=== PATIENT | female | born 1955 | race Caucasian/White ===

== ENCOUNTER 2016-07-14 14:18 | Emergency (ER) | payer OTHER ==
[~2016-07-14] VITALS: Ht 162.5 cm; Wt 68.0 kg
[~2016-07-14 14:18] MED LIST: 'KLONOPIN0.5 MG PO; ADVAIR DISKUS 51 DSK INH; AMOXIL500 MG PO; ASPIRIN CHILDRE80 MG PO; ASPIRIN CHILDRE81 MG PO; ATARAX,VISTARIL50 MG PO; ATIVAN0.5 MG PO; ATIVAN1 MG PO; AUGMENTIN 875 M1 TAB PO; BRIN10TA PO; BRIN20TA PO; BUPROPION75 MG PO; CARDIZEM CD240 MG PO; CEFUROXIME AXE250 MG PO; CELEXA20 MG PO; CELEXA40 MG PO; CIPRO500 MG PO; CLONAZEPAM0.5 MG PO; CLONIDINE HCL0.1 MG PO; CLONIDINE0.1 MG PO; CORDROL20 MG PO; CYMBALTA30 MG PO; CYMBALTA60 MG PO; Catapres-Tts 10.1 MG PO; DAYPRO600 M1 PO; DELTASONE20 M1 PO; DICYCLOMINE10 MG PO; DIFLUCAN150 MG PO; DILTIAZEM CD120 MG PO; DULE1ARO1 INH; FLEXERIL5 MG PO; GABAPENTIN300 MG PO; HYDROCODONE BIT1 T11 PO; INDOCIN25 MG PO; LEVOFLOXACIN500 MG PO; LIPITOR10 MG PO; LISINOPRIL40 MG PO; MEDROL DOSEPAK4 MG PO; METFORMIN500 MG PO; MIRTAZAPINE15 M2 PO; PALMITATE-A5000 IU PO; PHENERGAN W/ DE30 ML PO; PREDNICOT10 MG PO; PREDNICOT20 MG PO; PREDNISONE10 MG PO; PREDNISONE5 MG PO; PRILOSEC20 MG PO; PROAIR HFA0.09 MG/AC INH; PROAIR HFA8.5 GM INH; PROTONIX40 MG PO; REGLAN5 MG PO; SPIRIVA18 MCG INH; SYMBICORT1 AER INH; SYNTHROID,LEVO50 MCG PO; TESSALON PERLE100 M1 PO; VICODIN 5/500 505 MG PO; VICODIN 500 MG-1 TAB PO; VICODIN1 TAB PO; Vicodin 5/500 505 MG PO; ZOFRAN ODT4 MG SL; ZOFRAN8 MG PO
[2016-07-14 14:21] VITALS: BP 132/88
== END 2016-07-14 15:29 | disposition home or self-care (01) ==
LOC: ED 14:18
DX: S69.92XA Unspecified injury of left wrist, hand and finger(s), initial encounter (principal); F17.200 Nicotine dependence, unspecified, uncomplicated; Z91.041 Radiographic dye allergy status; Z88.6 Allergy status to analgesic agent; Z88.1 Allergy status to other antibiotic agents; Z79.82 Long term (current) use of aspirin; Z79.899 Other long term (current) drug therapy; W18.39XA Other fall on same level, initial encounter; Y93.89 Activity, other specified; Y92.9 Unspecified place or not applicable; Y99.9 Unspecified external cause status

== ENCOUNTER → 2016-09-29 | Outpatient (CLI) | payer OTHER ==
[2016-09-29 11:24] LABS: EST GLOM FILT AFRICAN AMERICAN > 60 ml/min
== END | disposition home or self-care (01) ==
LOC: MRI 10:35
PROVIDERS: Radiology Diagnostic Radiology
DX: M47.896 Other spondylosis, lumbar region (principal); M54.5 Low back pain; I10 Essential (primary) hypertension; E11.9 Type 2 diabetes mellitus without complications

== ENCOUNTER 2017-06-11 20:24 | Inpatient (IN) | payer OTHER ==
[~2017-06-11] VITALS: Ht 162.5 cm; Wt 83.1 kg
--- NOTE | ~2017-06-11 | PR ---
[place], [place] PROGRESS NOTE NAME: GLORIA CHIN [facility] #: [id number] UNIT #: [id number] ROOM: 425 DOCTOR: HARISH LIGHT MD BIRTHDATE: [birth year] DOS: 06/16/2017 SUBJECTIVE: The patient is doing fine without any complaints this morning. She is much better after the bronchoscopy was performed. OBJECTIVE: VITAL SIGNS: Blood pressure is 142/82, pulse of 60, respirations 20, temperature 98.2. LUNGS: Clear. HEART: Regular. ABDOMEN: Obese, soft, nontender. EXTREMITIES: Without any edema. ASSESSMENT AND PLAN: 1. Acute exacerbation of chronic obstructive pulmonary disease, stable and improved. Bronchospasm no longer noted. 2. Acute tracheobronchitis with bronchoscopy done because of significant mucous plugging. Bronch cultures could not complete it yet, but preliminary Gram stain shows few gram-positive cocci. Since the patient is clinically better, the plan is to discharge her to home and await the sputum culture results. HARISH LIGHT MD CM:PNTRANS [id number] HARISH LIGHT MD 06/16/17 1148 interface
--- NOTE | ~2017-06-11 | WRIGHTHP ---
[place], [place] PATIENT HISTORY AND PHYSICAL EXAM [facility] [id number] UNIT #: [id number] ROOM: 425 DOCTOR: HARISH LIGHT MD BIRTHDATE: [birth year] DOS: 06/11/2017 HISTORY OF PRESENT ILLNESS: The patient is 62 years old, known to us, comes in with cough and shortness of breath of 3-4 days duration. Cough is productive of scant amounts of green sputum. She denies having any chest pains or palpitations, does not have any fever or chills. PAST MEDICAL HISTORY: Significant for: 1. Last hospitalization with major depression and suicidal tendencies in May 2016. 2. History of chronic obstructive pulmonary disease with exacerbation. 3. Benign hypertension. 4. Major depression. 5. Gastroesophageal reflux disease. 6. Continued nicotine abuse. 7. Moderate major depression. 8. Generalized anxiety disorder. MEDICATIONS: She is on are BuSpar 15 t.i.d., citalopram 40 daily, clonidine 0.2 at bedtime, hydroxyzine 50 q.8h., levothyroxine 50 mcg daily, lisinopril 40 daily, metformin 500 daily, Protonix 40 daily, trazodone 200 at bedtime. SOCIAL HISTORY: Smoker of about 1 pack of cigarettes a day. Denies using any alcohol. PHYSICAL EXAMINATION: GENERAL: She is awake and alert and oriented, very harsh incessant cough. VITAL SIGNS: Blood pressure is 114/66, pulse of 78, respirations 20, temperature 98.2. LUNGS: Diminished breath sounds, scattered wheezes and rhonchi. HEART: Regular. ABDOMEN: Obese, soft, nontender. EXTREMITIES: Without any edema. ASSESSMENT AND PLAN: 1. Chronic obstructive pulmonary disease with acute exacerbation. The patient is placed on IV steroids, breathing treatments. 2. Possibility of pneumonia with bibasilar atelectasis. CT of the chest will be ordered. White cell count elevated at 13.5. The patient meets early sepsis criteria. 3. Benign hypertension, controlled. 4. Hypokalemia. Supplementation given. [place], [place] PATIENT HISTORY AND PHYSICAL EXAM NAME: GLORIA CHIN UNIT #: [id number] ROOM: 425 DOCTOR: HARISH LIGHT MD BIRTHDATE: [birth year] HARISH LIGHT MD CM:JUDAH:PATIENT HISTORY AND PHYSICAL EXAMINATION 0759 HARISH LIGHT MD 06/12/17 0948 interface
--- NOTE | ~2017-06-11 | CON ---
[place], [place] REPORT OF CONSULTATION NAME: GLORIA CHIN [facility] #: [id number] UNIT #: [id number] ROOM: 425 DOCTOR: TOM VEGA MD,RENETTA BIRTHDATE: [birth year] DOS: 06/14/2017 PULMONARY CONSULTATION EVALUATION AND MANAGEMENT CONSULTATION ORDERED BY: Dr. Nicol Titus REASON FOR CONSULTATION: For assessment of possible therapeutic bronchoscopy. HISTORY OF PRESENT ILLNESS: This is a 62-year-old white female who has been admitted to the hospital on 06/11/2017 The patient developed acute respiratory symptoms about 2-1/2 weeks prior to the hospitalization. She started having symptoms of progressive coughing associated with wheezing and shortness of breath. The symptoms have worsened, not responding to the outpatient treatment, requiring hospitalization. She has been treated in the hospital, receiving the corticosteroids, bronchodilator, antibiotic, and failed to show improvement in the respiratory symptoms. Coughing is still quite severe for the patient and not responding to the current treatment. The patient denies any symptoms of chest pain or hemoptysis. The wheezing of this patient remains persistent as well. REVIEW OF SYSTEMS: CONSTITUTIONAL SYMPTOMS: Fatigue and tiredness reported without any symptoms of fever or chills. EYES: Denies any burning, redness, or tenderness. NECK, EAR, NOSE, THROAT SYMPTOMS: Denies sore throat, hoarseness, otalgia, postnasal drainage, or epistaxis. CARDIOVASCULAR: Denies angina pain, edema, or pain of the lower extremities. GASTROINTESTINAL: No dysphagia, nausea, vomiting, diarrhea, abdominal pain, hematemesis, melena, or hematochezia. SKIN: Denies lesions or rashes. CENTRAL NERVOUS SYSTEM: No dizziness, headache, diplopia, or syncopal episodes. Remaining systems were reviewed, they were noted all negative. PAST MEDICAL HISTORY: The patient was known with history of: 1. Chronic obstructive pulmonary disease. 2. History of pulmonary nodule in the past in this patient with thoracotomy with right lower lobectomy. 3. Peptic ulcer disease. 4. Obesity. 5. Type 2 diabetes mellitus. 6. Hypothyroidism. PAST SURGICAL HISTORY: 1. D and C. 2. Polypectomy. 3. T and A. 4. Right knee arthroscopy twice. 5. Complete hysterectomy. 6. Right lower lobectomy. [place], [place] REPORT OF CONSULTATION [facility] [id number] UNIT #: [id number] ROOM: 425 DOCTOR: TOM VEGA MD,[facility] BIRTHDATE: [birth year] 7. Lumbar laminectomy. 8. Appendectomy. 9. Cholecystectomy. FAMILY HISTORY: The patient stated her dad is living, 86 years old, with history of COPD. Mother is 82 years old with history of COPD, diabetes, and certain other illnesses. ALLERGIES: THE DRUG ALLERGY HISTORY WAS RECORDED. 1. IVP DYE. 2. CIPROFLOXACIN. 3. MEPERIDINE. PHYSICAL EXAMINATION: GENERAL: This is a 62-year-old female who has been currently lying on the bed without any acute distress. Height of 5 feet 4 inches, weight of 193 pounds, BMI 31. VITAL SIGNS: Normal temperature to 99.4 degrees Fahrenheit in the past 24 hours, respiratory rate 18-20, heart rate of 102-85, blood pressure is 131/76-128/72. Pulse oxygen saturation with the patient on 2 liters nasal cannula 98% saturation. Admission oxygen saturation on room air was 92% saturation. HEENT: Moderate obesity. Head was atraumatic. NECK: Supple. CARDIOVASCULAR SYSTEM: S1, S2 audible. LUNGS: Noted diffuse expiratory wheezing in the lungs bilaterally. ABDOMEN: Soft, nontender. Bowel sounds present. EXTREMITIES: The patient was noted with chronic obesity without any edema, clubbing or cyanosis. CENTRAL NERVOUS SYSTEM: Noted without any gross focal neurologic deficit. Cranial nerves 2-12 intact. MUSCULOSKELETAL: No deformities. SKIN: No lesions or rashes. LABORATORY DATA: CBC on 06/11/2017, WBC count 13.5. Remaining CBC was normal. Lactic acid 1.3 on 06/11/2017. On 06/11/2017, influenza A and B nasal washing antigens were negative. CMP of the patient on 06/11/2017, normal BUN and creatinine, potassium 3.4. Blood culture for the patient on 06/11/2017 was noted with no bacterial growth. The culture of the sputum, normal dirk, which was obtained on spontaneous sputum culture on 06/12/2017. Chest x-ray, 1 view, that was done for this patient was noted with a small pleural thickening in the right lung. CT scan of the chest that was done for this patient on this admission without contrast on 06/12/2017, was personally reviewed from the images. The lung parenchymal window for shows previous volume loss on the right side with the previous surgical intervention and lobectomy. Infiltration was noted with ground glass opacities in the lungs with reticulonodular infiltration and some changes of centrilobular pulmonary nodules. The finding was noted much more pronounced in the left than the right lung. Centrilobular emphysema changes were noted in the upper lungs bilaterally. There was no pleural effusion noted at the present time. [place], [place] REPORT OF CONSULTATION NAME: GLORIA CHIN UNIT #: [id number] ROOM: 425 DOCTOR: TOM VEGA MD,[facility] BIRTHDATE: [birth year] IMPRESSION: 1. The patient will be currently admitted to the hospital. The patient noted with progressive respiratory symptom with associated acute exacerbation of chronic obstructive pulmonary disease and, acute tracheobronchitis. 2. Current nonspecific acute interstitial pneumonitis related to infection. Other etiologies to be considered including chronic infection such as Mycobacterium avium-intracellulare infection. 3. History of chronic past nicotine use was also noted as 1 pack of cigarettes per day, used to smoke 2 packs of cigarettes per day. 4. History of benign nodule with surgical resection of the right lower lobe a few years ago as well. 5. History of hypothyroidism and type 2 diabetes mellitus. 6. Moderate obesity was also noted. PLAN OF MANAGEMENT: The bronchoscopy assessment will be done for the patient tomorrow morning with obtaining BAL specimen of the left lower lobe, the area of most interest. At this time, the patient will be continued on current dose of corticosteroids, bronchodilators, and antibiotics. No change in treatment need to be done except addition of the doxycycline for atypical coverage of the gram-positive organisms. The risks and benefits of procedure have been discussed with the patient. The procedure was scheduled to be done in the morning. Additional treatment changes need to be made for the patient based on progression of the illness. Abstinence from tobacco use. The patient was encouraged to use the nicotine replacement patch to overcome any nicotine withdrawal. The patient will be ordered new labs since the labs have not been done at admission of 06/11/2017 to assess her BUN and creatinine, other electrolytes and the WBC count. DVT prophylaxis will be added to treatment with the use of the Lovenox. Monitor management of hyperglycemia because of the current use of corticosteroids with history of diabetes mellitus as well. Thanks for allowing me to participate in the care of this patient. RENETTA SANTOS MD CM:CONSTR:REPORT OF CONSULTATION 1314 06/15/17 0151 interface
--- NOTE | ~2017-06-11 | EKG ---
[place], [place] ELECTROCARDIOGRAM REPORT NAME: GLORIA CHIN UNIT #: [id number] ROOM: 425 DOCTOR: TOM VEGA MD,RENETTA BIRTHDATE: [birth year] DOS: 06/14/2017 TIME: 10:42 a.m. Normal sinus rhythm noted. Heart rate 72 beats per minute. No other acute abnormalities were noted. RENETTA SANTOS MD CM:EKGRPT:ELECTROCARDIOGRAM REPORT 1418 [id number] RENETTA VEGA MD
--- NOTE | ~2017-06-11 | PR ---
[place], [place] PROGRESS NOTE NAME: GLORIA CHIN UNIT #: [id number] ROOM: 425 DOCTOR: RENETTA RAO MD BIRTHDATE: [birth year] DOS: 06/15/2017 SUBJECTIVE: She has been noted same as previously with the cough. Denies symptoms of a chest pain. Denies symptoms of nausea or vomiting. OBJECTIVE: VITAL SIGNS: For the patient, which has been recorded. The patient shows a normal temperature, respiratory rate 19, heart rate 86, blood pressure 110/84. Pulse oxygen saturation on room air was 95% saturation. HEENT: Examination shows no acute change. NECK: Supple. CARDIOVASCULAR: S1, S2 is audible. LUNGS: Without any wheezing or crackles at this time. ABDOMEN: Soft, nontender. Bowel sounds present. LABORATORY DATA: CMP, they were no labs done this morning. CBC yesterday was noted, WBC count 14.9 with 88% segmented neutrophils, normal platelet count. Hemoglobin and hematocrit was noted as normal. CMP that was done yesterday, glucose 140. Normal BUN and creatinine. Albumin 2.9. The culture of the spontaneous sputum culture noted normal dirk. IMPRESSION: 1. The patient with interstitial infiltration of the left lower lobe for this patient noted with ongoing acute cough and other symptom related to mucus impaction major airways. 2. Past history of surgery. Resection of the nodule of the right lower lobe. 3. Rule out mycobacterium avium intracellulare infection or other etiology with further assessment. PLAN OF TREATMENT: Continue with the current plan of management at this time without any changes. Proceed with bronchoscopy as planned for all the cultures including for the acid fast bacillus as well. Additional treatment changes will be done based on progression of the illness. Other supportive plan of management and care. [place], [place] PROGRESS NOTE NAME: GLORIA HCIN UNIT #: [id number] ROOM: 425 DOCTOR: RENETTA RAO MD BIRTHDATE: [birth year] RENETTA SANTOS MD CM:PNTRANS [id number] RENETTA VEGA MD 06/15/17 1820 interface
--- NOTE | ~2017-06-11 | PR ---
[place], [place] PROGRESS NOTE [id number] UNIT #: [id number] ROOM: 425 DOCTOR: TOM VEGA MD,RENETTA BIRTHDATE: [birth year] DOS: 06/16/2017 SUBJECTIVE: She has been noted with marked improvement and resolution of the acute respiratory symptoms after bronchoscopy. Coughing, wheezing, shortness of breath has improved significantly. OBJECTIVE: VITAL SIGNS: For the patient this morning, normal temperature, respiratory rate 20, heart rate 82, blood pressure 121/76. The pulse ox and saturation on room air 95% saturation. HEENT: No acute change. NECK: Supple. CARDIOVASCULAR: S1, S2 audible. LUNGS: The patient was noted with minimal wheezing. The air entry was noted in the lungs bilaterally. ABDOMEN: Soft, nontender. LABORATORY DATA: Gram stain bronchial washing, many white blood cells, moderate epithelial cells, gram-positive cocci in pairs. Preliminary normal dirk, final culture results are pending. IMPRESSION: The patient with significant improvement occurred in acute exacerbation of chronic obstructive pulmonary disease with acute bronchitis has a bronchoscopy. PLAN OF TREATMENT: The patient could be considered from discharge today for further followup as an outpatient. Tapering dose of prednisone. Antibiotic has been ordered by Dr. Nicol Titus. RENETTA SANTOS MD CM:PNTRANS [phone] RENETTA VEGA MD 06/16/17 1839 interface
--- NOTE | ~2017-06-11 | PR ---
[place], [place] PROGRESS NOTE NAME: GLORIA CHIN [facility] #: [id number] UNIT #: [id number] ROOM: 425 DOCTOR: HARISH LIGHT MD BIRTHDATE: [birth year] DOS: SUBJECTIVE: The patient is doing fine without any complaints, except for continued cough. OBJECTIVE: VITAL SIGNS: Graphic trend shows blood pressure 121/62, pulse of 78, respirations 20, temperature 98.6. LUNGS: Diminished breath sounds, scattered wheezes and rhonchi. HEART: Regular. ABDOMEN: Obese, soft, nontender. EXTREMITIES: Without any edema. ASSESSMENT AND PLAN: 1. Acute exacerbation of chronic obstructive pulmonary disease, on IV steroids. Add Pulmicort and chest PT. If she continues to have bronchospasm, the plan possibly will be to do a bronchoscopy. 2. Acute tracheobronchitis. A CT of the chest did show focal consolidation in the left lower lobe. She most likely has underlying pneumonia. Sputum culture is pending. 3. Benign hypertension, controlled. 4. Moderate cigarette smoker. Advised to quit smoking. HARISH LIGHT MD CM:PNTRANS [phone] HARISH LIGHT MD 06/13/17 1117 interface
--- NOTE | ~2017-06-11 | DS ---
[place], [place] DISCHARGE SUMMARY NAME: GLORIA CHIN UNIT #: [id number] ROOM: 425 DOCTOR: HARISH LIGHT MD BIRTHDATE: [birth year] DOS: 06/16/2017 DIAGNOSES: 1. Acute exacerbation of chronic obstructive pulmonary disease. 2. Acute tracheobronchitis. 3. Bronchoscopy with negative cultures, complete cultures are not available yet. 4. Benign hypertension. 5. Major depression, moderate, recurrent. 6. Moderate nicotine abuse. 7. Generalized anxiety disorder. 8. Atelectasis with possible left lower lobe pneumonia. MEDICATIONS: Same as in admission, the only new prescription given was tapering dose of prednisone, doxycycline 100 mg twice a day for 7 days. Home meds are BuSpar 15 t.i.d., citalopram 40 daily, clonidine 0.2 at bedtime, hydroxyzine 50 q. 8, levothyroxine 50 mcg daily, lisinopril 40 daily, metformin 500 daily, Protonix 40 daily, trazodone 200 at bedtime. HOSPITAL COURSE: This patient is very well known to us. The patient is 62 years old, comes in with complaints of difficulty breathing, cough, sputum production. The patient was seen in the Emergency Room, was admitted with exacerbation of COPD. CT of the chest was done, which showed a possibility of bibasilar atelectasis and a possibility of left lower lobe consolidation. The patient was placed on appropriate antibiotics, breathing treatments and IV steroids. Her progress was extremely poor and slow. At that time, Dr. Layne was consulted for a bronchoscopy. The sputum cultures were negative. White cell count was elevated, possibly from steroid effect. Lactic acid was normal. After the bronchoscopy was performed, the patient's bronchospasm and cough has completely resolved and the patient is feeling much better. So, the plan is to discharge her to home today to be followed up as an outpatient. We do not have the complete culture results yet, but we should wait that as an outpatient. [place], [place] DISCHARGE SUMMARY NAME: GLORIA CHIN UNIT #: [id number] ROOM: 425 DOCTOR: HARISH LIGHT MD BIRTHDATE: [birth year] HARISH LIGHT MD CM:WESLY 6 HARISH LIGHT MD 06/16/17936 interface
--- NOTE | ~2017-06-11 | PR ---
[place], [place] PROGRESS NOTE NAME: GLORIA CHIN [facility] #: [id number] UNIT #: [id number] ROOM: 425 DOCTOR: HARISH LIGHT MD BIRTHDATE: [birth year] DOS: SUBJECTIVE: The patient continues to complain of cough and shortness of breath without much improvement in the last 24 hours. OBJECTIVE: VITAL SIGNS: Blood pressure is 131/76, pulse of 80, respirations 18, temperature 99.4. LUNGS: Diminished breath sounds, scattered wheezes and rhonchi heard. HEART: Regular. ABDOMEN: Obese, soft, nontender. EXTREMITIES: Without any edema. ASSESSMENT AND PLAN: 1. Acute exacerbation of chronic obstructive pulmonary disease, on IV steroids. 2. Pneumonia, left lower lobe with some diffuse alveolar disease, on IV antibiotics with negative blood cultures, negative sputum cultures. Since the patient continues to have significant bronchospasm, the steroid dosage will be increased. We will ask Dr. [place]ne for a consultation for possible bronchoscopy. HARISH LIGHT MD CM:PNTRANS 0837 [id number] HARISH LIGHT MD 06/14/17 1049 interface
--- NOTE | ~2017-06-11 | PROC NOTE ---
[place], [place] PROCEDURE NOTE NAME: GLORIA CHIN [facility] #: [id number] UNIT #: [id number] ROOM: 425 DOCTOR: TOM VEGA MD,RENETTA BIRTHDATE: [birth year] DOS: 06/15/2017 PROCEDURE: Bronchoscopy. PREOPERATIVE DIAGNOSES: The patient got abnormal CT scan of the chest with cough and other finding. POSTOPERATIVE DIAGNOSES: Removal of multiple large plugs and mucus from the endobronchial tree bilaterally. PROCEDURE DESCRIPTION: Informed consent obtained for the patient. The patient brought to the OR and placed in supine position, consultation administered by the Anesthesia Department. After achieving proper sedation, airway introduced into the mouth. Bronchoscope advanced to the airway into laryngeal area. Epiglottis and vocal cords were seen. Vocal cords moving symmetrically with movements. Bronchoscope entered vocal cord. Tracheal lumen showed moderate amount of thick mucus secretion suctioned out at the nicolasa level. Nicolasa noted sharp. Right total lobectomy findings were noted. Right middle, right upper lobe, left lingula, lower lobe and left upper lobe bronchial opening were noted. Impaction of the thick plugs of the mucus patient. All the secretions suctioned out with the help of normal saline wash, sent for culture. Procedure was tolerated by the patient. The postoperative finding will discuss once the patient recovers with the effects of acute sedation. No major change in the treatment will be necessary. RENETTA SANTOS MD CM:PROCNOTE:PROCEDURE NOTE [id number] RENETTA VEGA MD
[2017-06-11 20:30] VITALS: BP 138/96
[2017-06-11] MEDS ORDERED: Zestril,Prinivi40 MG PO (20:50)
[2017-06-11] MEDS ORDERED: BUSPAR15 MG PO (20:51)
[2017-06-11] MEDS ORDERED: TRAZADONE HYDR100 MG PO (20:51)
[2017-06-11] MEDS ORDERED: LEVOTHYROXINE50 MCG PO (20:51)
[2017-06-11] MEDS ORDERED: METFORMIN HCL500 MG PO (20:51)
[2017-06-11] MEDS ORDERED: PANTOPRAZOLE SO40 MG PO (20:52)
[2017-06-11] MEDS ORDERED: CITALOPRAM HYDR40 MG PO (20:52)
[2017-06-11 20:55] VITALS: BP 125/80
[2017-06-11 20:56] LABS: BASO % 0.3 % (0.0-1.0); EOS # 0.3 10*3/uL (0.0-0.4); HEMATOCRIT 36.2 % (37.0-47.0); HEMOGLOBIN 12.3 g/dl (12.0-16.0); LYMPH # 2.2 10*3/uL (1.3-4.4); LYMPH % 16.3 % (27.0-41.0); MEAN CORPUSCULAR HGB 30.6 pg (27.0-31.0); MEAN PLATELET VOLUME 9.1 fl (9.6-12.3); MONO # 1.1 10*3/uL (0.1-1.0); MONO % 8.3 % (3.0-9.0); NEUT # 9.8 10*3/uL (2.3-7.9); NEUT % 72.7 % (47.0-73.0); PLATELET COUNT AUTOMATED 342 10*3/uL (130-400); RED BLOOD COUNT 4.02 10*6/uL (4.10-5.10); RED CELL DISTRI WIDTH 13.2 % (0-14.5); WHITE BLOOD COUNT 13.5 10*3/uL (4.8-10.8)
[2017-06-11 21:12] LABS: ALBUMIN 3.1 gm/dl (3.1-4.5); ALKALINE PHOSPHATASE 121 U/L (45-117); BUN 15 mg/dl (7-24); CHLORIDE 106 mmol/L (98-107); CREATININE 0.62 mg/dL (0.55-1.02); LIPASE 90 U/L (73-393); POTASSIUM 3.4 mmol/L (3.5-5.1); SGOT/AST 8 IU/L (3-35); SGPT/ALT 12 U/L (12-78); SODIUM 141 mmol/L (136-145); TOTAL PROTEIN 6.5 gm/dL (6.4-8.2)
[2017-06-11 21:13] LABS: TROPONIN I < 0.015 ng/ml (<0.045)
[2017-06-11 21:16] VITALS: BP 124/76
[2017-06-11 21:46] VITALS: BP 122/92
[2017-06-11 23:40] VITALS: BP 114/66
[2017-06-12] VITALS: BP 114/66
[2017-06-12] MEDS ORDERED: VISTARIL50 MG PO (00:38)
[2017-06-12] MEDS ORDERED: CLONIDINE0.2 MG PO (00:39)
[2017-06-12 08:00] VITALS: BP 112/95
[2017-06-12 12:00] VITALS: BP 109/83
[2017-06-12 16:00] VITALS: BP 128/69
[2017-06-12 20:00] VITALS: BP 111/59
[2017-06-13] VITALS: BP 121/62
[2017-06-13 08:00] VITALS: BP 116/66
[2017-06-13 12:00] VITALS: BP 132/80
[2017-06-13 16:00] VITALS: BP 134/70
[2017-06-13 20:00] VITALS: BP 139/72
[2017-06-14] VITALS: BP 131/76
[2017-06-14 08:00] VITALS: BP 128/72
[2017-06-14 12:00] VITALS: BP 136/66
[2017-06-14 13:36] LABS: BASO % 0.1 % (0.0-1.0); HEMATOCRIT 37.2 % (37.0-47.0); HEMOGLOBIN 12.2 g/dl (12.0-16.0); LYMPH # 1.2 10*3/uL (1.3-4.4); LYMPH % 7.8 % (27.0-41.0); MEAN CELL VOLUME 89.9 fl (81.0-99.0); MEAN CORPUSCULAR HGB 29.5 pg (27.0-31.0); MEAN CORPUSCULAR HGB CONC 32.8 g/dl (33.0-37.0); MEAN PLATELET VOLUME 8.7 fl (9.6-12.3); MONO # 0.7 10*3/uL (0.1-1.0); MONO % 4.4 % (3.0-9.0); NEUT # 12.6 10*3/uL (2.3-7.9); NEUT % 84.5 % (47.0-73.0); PLATELET COUNT AUTOMATED 401 10*3/uL (130-400); RED BLOOD COUNT 4.14 10*6/uL (4.10-5.10); RED CELL DISTRI WIDTH 13.3 % (0-14.5); WHITE BLOOD COUNT 14.9 10*3/uL (4.8-10.8)
[2017-06-14 14:02] LABS: TOTAL CELLS COUNTED 100 #CELLS
[2017-06-14 14:03] LABS: PLATELET SUFFICIENCY NORMAL (NORMAL)
[2017-06-14 14:08] LABS: ALBUMIN 2.9 gm/dl (3.1-4.5); ALKALINE PHOSPHATASE 119 U/L (45-117); BUN 23 mg/dl (7-24); CHLORIDE 105 mmol/L (98-107); CREATININE 0.88 mg/dL (0.55-1.02); POTASSIUM 3.7 mmol/L (3.5-5.1); SGOT/AST 9 IU/L (3-35); SGPT/ALT 13 U/L (12-78); SODIUM 141 mmol/L (136-145); TOTAL PROTEIN 6.4 gm/dL (6.4-8.2)
[2017-06-14 16:00] VITALS: BP 123/68
[2017-06-14 20:00] VITALS: BP 143/87
[2017-06-15] VITALS (10 sets, daily range): BP systolic 110–178; BP diastolic 61–110
[2017-06-16] VITALS: BP 142/82; BP 148/88
[2017-06-16 08:00] VITALS: BP 125/76
[2017-06-16] MEDS ORDERED: DOXYCYCLINE MO100 M1 PO (08:32)
[2017-06-16] MEDS ORDERED: PREDNISONE5 MG PO (08:32)
[2017-06-16 14:11] LABS: ACID FAST SMEAR Negative (.); ACID FAST SPEC PROCESSING Concentration (.)
== END 2017-06-16 10:10 | disposition home or self-care (01) | DRG 871 ==
LOC: ED 20:24 → EDHOLD 22:09 → 4E 22:09
PROVIDERS: Emergency Medicine Emergency Medical Services; Internal Medicine Critical Care Medicine
PROC: 0BC28ZZ Extirpation of Matter from Carina, Via Natural or Artificial Opening Endoscopic (ICD-10-PCS; principal; 2017-06-15)
PROC: 0BC48ZZ Extirpation of Matter from Right Upper Lobe Bronchus, Via Natural or Artificial Opening Endoscopic (ICD-10-PCS; 2017-06-15)
PROC: 0BC88ZZ Extirpation of Matter from Left Upper Lobe Bronchus, Via Natural or Artificial Opening Endoscopic (ICD-10-PCS; 2017-06-15)
PROC: 0BC18ZZ Extirpation of Matter from Trachea, Via Natural or Artificial Opening Endoscopic (ICD-10-PCS; 2017-06-15)
PROC: 0BC58ZZ Extirpation of Matter from Right Middle Lobe Bronchus, Via Natural or Artificial Opening Endoscopic (ICD-10-PCS; 2017-06-15)
PROC: 0BC38ZZ Extirpation of Matter from Right Main Bronchus, Via Natural or Artificial Opening Endoscopic (ICD-10-PCS; 2017-06-15)
PROC: 0BC78ZZ Extirpation of Matter from Left Main Bronchus, Via Natural or Artificial Opening Endoscopic (ICD-10-PCS; 2017-06-15)
PROC: 0BC68ZZ Extirpation of Matter from Right Lower Lobe Bronchus, Via Natural or Artificial Opening Endoscopic (ICD-10-PCS; 2017-06-15)
PROC: 0BCB8ZZ Extirpation of Matter from Left Lower Lobe Bronchus, Via Natural or Artificial Opening Endoscopic (ICD-10-PCS; 2017-06-15)
PROC: 0BC98ZZ Extirpation of Matter from Lingula Bronchus, Via Natural or Artificial Opening Endoscopic (ICD-10-PCS; 2017-06-15)
DX: A41.9 Sepsis, unspecified organism (principal); J18.1 Lobar pneumonia, unspecified organism; T17.890A Other foreign object in other parts of respiratory tract causing asphyxiation, initial encounter; F33.1 Major depressive disorder, recurrent, moderate; J44.0 Chronic obstructive pulmonary disease with (acute) lower respiratory infection; J98.11 Atelectasis; J44.1 Chronic obstructive pulmonary disease with (acute) exacerbation; J84.89 Other specified interstitial pulmonary diseases; J20.9 Acute bronchitis, unspecified; Z80.9 Family history of malignant neoplasm, unspecified; E66.9 Obesity, unspecified; E11.9 Type 2 diabetes mellitus without complications; X58.XXXA Exposure to other specified factors, initial encounter; E03.9 Hypothyroidism, unspecified; I10 Essential (primary) hypertension; F17.210 Nicotine dependence, cigarettes, uncomplicated; E87.6 Hypokalemia; K21.9 Gastro-esophageal reflux disease without esophagitis; F41.1 Generalized anxiety disorder; Z79.899 Other long term (current) drug therapy; Z88.8 Allergy status to other drugs, medicaments and biological substances; Z88.1 Allergy status to other antibiotic agents; Z91.041 Radiographic dye allergy status; Z83.3 Family history of diabetes mellitus; Z82.49 Family history of ischemic heart disease and other diseases of the circulatory system; Z87.11 Personal history of peptic ulcer disease; Z90.710 Acquired absence of both cervix and uterus; Z90.89 Acquired absence of other organs; Z90.49 Acquired absence of other specified parts of digestive tract; Z83.6 Family history of other diseases of the respiratory system; Y93.89 Activity, other specified; Y92.89 Other specified places as the place of occurrence of the external cause; Y99.8 Other external cause status; Z68.31 Body mass index [BMI] 31.0-31.9, adult

== ENCOUNTER → 2017-09-01 | Outpatient (CLI) | payer OTHER ==
[~2017-09-01] MED LIST changes: +BUSPAR15 MG PO; +CITALOPRAM HYDR40 MG PO; +CLONIDINE0.2 MG PO; +DOXYCYCLINE MO100 M1 PO; +LEVOTHYROXINE50 MCG PO; +METFORMIN HCL500 MG PO; +PANTOPRAZOLE SO40 MG PO; +TRAZADONE HYDR100 MG PO; +VISTARIL50 MG PO; +Zestril,Prinivi40 MG PO
== END | disposition home or self-care (01) ==
LOC: MAMMO 09:58
DX: Z12.31 Encounter for screening mammogram for malignant neoplasm of breast (principal); Z13.820 Encounter for screening for osteoporosis; N95.9 Unspecified menopausal and perimenopausal disorder; Z90.710 Acquired absence of both cervix and uterus

== ENCOUNTER → 2017-11-25 | Outpatient (CLI) | payer OTHER ==
[2017-11-25 14:47] LABS: CREATININE 0.76 mg/dL (0.55-1.02)
== END | disposition home or self-care (01) ==
LOC: LAB 13:57
PROVIDERS: Internal Medicine
DX: R51 Headache (principal)

== ENCOUNTER → 2017-11-26 | Outpatient (CLI) | payer OTHER | END | disposition home or self-care (01) | LOC: CT 01:11 | DX: R51 Headache (principal) ==

== ENCOUNTER → 2018-05-25 | Outpatient (CLI) | payer OTHER ==
[~2018-05-25] MED LIST changes: +AUGMENTIN 875-875 MG PO; +METOPROLOL TART50 M1 PO; +SYMB160 INH
[2018-05-25 15:50] LABS: BASO # 0.1 10*3/uL (0.0-0.1); BASO % 0.8 % (0.0-1.0); EOS # 0.2 10*3/uL (0.0-0.4); HEMATOCRIT 41.6 % (37.0-47.0); HEMOGLOBIN 13.5 g/dl (12.0-16.0); LYMPH # 2.6 10*3/uL (1.3-4.4); LYMPH % 35.1 % (27.0-41.0); MEAN CELL VOLUME 92.4 fl (81.0-99.0); MEAN CORPUSCULAR HGB CONC 32.5 g/dl (33.0-37.0); MEAN PLATELET VOLUME 9.2 fl (9.6-12.3); MONO # 0.6 10*3/uL (0.1-1.0); MONO % 7.6 % (3.0-9.0); NEUT # 3.9 10*3/uL (2.3-7.9); NEUT % 53.4 % (47.0-73.0); PLATELET COUNT AUTOMATED 331 10*3/uL (130-400); WHITE BLOOD COUNT 7.4 10*3/uL (4.8-10.8)
[2018-05-25 16:17] LABS: VITAMIN D, 25-HYDROXY 26.7 ng/mL (30-100)
[2018-05-25 16:20] LABS: ALBUMIN 3.8 gm/dl (3.1-4.5); ALKALINE PHOSPHATASE 111 U/L (45-117); BUN 16 mg/dl (7-24); CHLORIDE 105 mmol/L (98-107); CHOLESTEROL 214 mg/dL (<200); CREATININE 0.73 mg/dL (0.55-1.02); HDL CHOLESTEROL 51 mg/dl (40-60); LDL CHOLESTEROL 125 mg/dL (9-159); POTASSIUM 3.7 mmol/L (3.5-5.1); SGOT/AST 10 IU/L (3-35); SGPT/ALT 14 U/L (12-78); SODIUM 141 mmol/L (136-145); TRIGLYCERIDES 189 mg/dl (<150); VLDL CHOLESTEROL 38 mg/dL (6-40)
[2018-05-26 08:09] LABS: RHEUMATOID ARTHRITIS FACTOR <10.0 IU/mL (0.0-13.9)
[2018-05-26 22:04] LABS: CCP ANTIBODIES IGG/IGA 5 units (0-19)
[2018-05-27 14:07] LABS: SINGLE STRANDED DNA 161422 26 EU (0-19)
== END | disposition home or self-care (01) ==
LOC: LAB 15:18
PROVIDERS: Internal Medicine
DX: Z13.21 Encounter for screening for nutritional disorder (principal); Z13.1 Encounter for screening for diabetes mellitus; Z13.220 Encounter for screening for lipoid disorders; Z79.899 Other long term (current) drug therapy

== ENCOUNTER 2018-06-24 18:44 | Emergency (ER) | payer OTHER ==
[~2018-06-24] VITALS: Ht 162.5 cm; Wt 77.1 kg
[2018-06-24 18:46] VITALS: BP 155/96
[2018-06-24 19:03] LABS: BILIRUBIN NEGATIVE (NEGATIVE); BLOOD 2+ (NEGATIVE); CLARITY CLOUDY (CLEAR); COLOR YELLOW (YELLOW); GLUCOSE NEGATIVE (NEGATIVE); KETONE NEGATIVE (NEGATIVE); LEUKO ESTERASE 2+ (NEGATIVE); NITRITE POSITIVE (NEGATIVE); SPECIFIC GRAVITY 1.025 (1.005-1.030)
[2018-06-24 19:11] LABS: BACTERIA 2+; WBC TNTC wbc/hpf (0-5)
[2018-06-24] MEDS ORDERED: PYRIDIUM200 M1 PO (19:15)
[2018-06-24] MEDS ORDERED: ZOFRAN4 MG PO (19:15)
[2018-06-24] MEDS ORDERED: SEPTDS PO (19:15)
== END 2018-06-24 19:30 | disposition home or self-care (01) ==
LOC: ED 18:44
PROVIDERS: Nurse Practitioner Family
DX: N39.0 Urinary tract infection, site not specified (principal); R03.0 Elevated blood-pressure reading, without diagnosis of hypertension; J44.9 Chronic obstructive pulmonary disease, unspecified; Z91.041 Radiographic dye allergy status; Z88.6 Allergy status to analgesic agent; Z88.1 Allergy status to other antibiotic agents; Z79.899 Other long term (current) drug therapy

== ENCOUNTER 2018-07-08 15:09 | Inpatient (IN) | payer OTHER ==
[~2018-07-08] VITALS: Ht 162.5 cm; Wt 87.7 kg
--- NOTE | ~2018-07-08 | DS ---
[place], [place] DISCHARGE SUMMARY NAME: GLORIA CHIN UNIT #: [id number] ROOM: 405 DOCTOR: CAT PHILLIPS MD BIRTHDATE: [birth year] DOS: 07/11/2018 DISCHARGE DIAGNOSES: 1. Acute exacerbation of severe underlying chronic obstructive pulmonary disease with acute over chronic respiratory failure. 2. Nicotine smoke dependence. 3. Type 2 diabetes mellitus. 4. Benign essential hypertension. 5. Generalized anxiety disorder. 6. Hypothyroidism. 7. Gastroesophageal reflux disease and esophagitis. 8. Chronic primary insomnia. 9. Major depression, recurrent, mild. HOSPITAL COURSE: The patient presented to the Emergency Department at [facility] with difficulty breathing and she had significant amount of wheezing, shortness of breath and she was diagnosed as having acute exacerbation of severe underlying COPD and acute over chronic respiratory failure. The patient admitted and closely monitored in the [facility]. The patient was treated with corticosteroids, oxygen, nebulizer treatments and her breathing has significantly improved. The patient states she is 90% better and will be discharged to home on oral corticosteroids, breathing treatments and antibiotic and follow up with her PCP, Dr. Titus within a week of discharge. Hypothyroidism, being replaced with levothyroxine. Chronic primary insomnia, treated and controlled with trazodone. Benign essential hypertension, treated and controlled. Generalized anxiety disorder, treated with hydroxyzine as needed. DISCHARGE MANAGEMENT: Metformin 500 mg daily, Protonix 40 mg daily, levothyroxine 50 mcg daily, trazodone 200 mg at bedtime, metoprolol 50 mg b.i.d., clonidine 0.1 mg b.i.d., DuoNeb q.i.d., Pulmicort 0.5 mg b.i.d., hydroxyzine 15 mg t.i.d. p.r.n. for anxiety. Follow up at the office with Dr. Titus in less than a week. [place], [place] DISCHARGE SUMMARY NAME: GLORIA CHIN UNIT #: [id number] ROOM: 405 DOCTOR: CAT PHILLIPS MD BIRTHDATE: [birth year] CAT PHILLIPS MD CM:WESLY 1727 0022 CAT PHILLIPS MD 07/12/18 0023 interface
--- NOTE | ~2018-07-08 | WRIGHTHP ---
[place], [place] PATIENT HISTORY AND PHYSICAL EXAM NAME: GLORIA CHIN [facility] #: [id number] UNIT #: [id number] ROOM: 405 DOCTOR: CAT PHILLIPS MD BIRTHDATE: [birth year] DOS: 07/08/2018 HISTORY OF PRESENT ILLNESS: The patient is a 63-year-old female with a past medical history of: 1. Nicotine smoke dependence. 2. COPD. 3. Type 2 diabetes mellitus. 4. Benign essential hypertension. 5. Generalized anxiety disorder. 6. Hypothyroidism. 7. GERD and esophagitis. 8. Chronic primary insomnia. 9. Hypothyroidism. 10. Major depression, recurrent, moderate. The patient presented to the Emergency Department at [facility] with increasing shortness of breath for several days. No chest pain. No dizziness or fainting episodes. The patient was diagnosed as having acute exacerbation of COPD with acute over chronic respiratory failure. The patient was very short of breath, wheezing and had chest congestion. The patient was admitted and started on treatment with DuoNeb and inhaled corticosteroids, antibiotics, oxygen and Dr. Layne was consulted. REVIEW OF SYSTEMS: RESPIRATORY: Increasing shortness of breath and wheezing. GASTROINTESTINAL: No nausea, vomiting, diarrhea, constipation. CARDIOVASCULAR: No chest pain or palpitations. FAMILY HISTORY: Noncontributory. HOME MEDICATIONS: Metformin, Protonix, levothyroxine, trazodone, metoprolol, clonidine, buspirone, hydroxyzine. PHYSICAL EXAMINATION: GENERAL: Alert, oriented x 3, somewhat short of breath, but in no distress. VITAL SIGNS: Blood pressure 139/89, heart rate 79 beats per minute, breathing 20 times per minute, temperature 98 degrees Fahrenheit. HEENT AND NECK: Extraocular movements are intact. Sclerae are anicteric. Oral mucosa is moist and clean. No obvious facial weakness. Neck is supple without any lymphadenopathy. No thyromegaly. No JVD. No carotid arterial bruits. LUNGS: Decreased breath sounds and expiratory wheezing on lung auscultation. CARDIOVASCULAR SYSTEM: Heart rate is regular in rate and rhythm. S1 and S2 normally audible. No significant murmur or any other abnormal cardiac sounds. ABDOMEN: Soft, nontender. No obvious organomegaly. Bowel sounds are present. No obvious herniation. EXTREMITIES: Without significant cyanosis or edema. Warm to touch. CENTRAL NERVOUS SYSTEM: Alert and oriented x 3. Cranial nerves II-XII are intact. Speech is normal. The patient is able to move all extremities. Normal muscle strength. Deep tendon reflexes are equal on both sides. Plantars were downgoing. [place], [place] PATIENT HISTORY AND PHYSICAL EXAM NAME: GLORIA CHIN UNIT #: [id number] ROOM: 405 DOCTOR: CAT PHILLIPS MD BIRTHDATE: [birth year] IMPRESSION AND PLAN: 1. The patient with acute exacerbation of chronic obstructive pulmonary disease, which is significant underlying emphysema with continued nicotine smoke dependence. The patient with acute over chronic respiratory failure, to be treated with inhaled corticosteroids, bronchodilator, oxygen, antibiotic and nebulizer treatments. The patient's breathing is slightly improved with treatment. 2. Hypothyroidism, to be treated with levothyroxine. 3. Chronic primary insomnia, treated with trazodone as needed. 4. Benign essential hypertension. The patient remains on clonidine and blood pressures have been monitored and treated. 5. Generalized anxiety disorder, treated with hydroxyzine. CAT PHILLIPS MD CM:HISPHYS:PATIENT HISTORY AND PHYSICAL EXAMINATION 07 34 CAT PHILLIPS MD 07/09/181935 interface
--- NOTE | ~2018-07-08 | EKG ---
[place], [place] ELECTROCARDIOGRAM REPORT NAME: GLORIA CHIN UNIT #: [id number] ROOM: 405 DOCTOR: IVAN DRAFT REPORT BIRTHDATE: [birth year] [facility] Test Date: 2018-07-08 Test Time: 15:37:10 Pat Name: GLORIA CHIN Department: Room: 405 Gender: F Customer Service Leader: : 1955 Requested By: ANGELIC ADLER Order Number: [id number] Reading MD: Domingo Maldonado MD Measurements Intervals [place] Rate: 95 P: 41 MN: 162 QRS: 24 QRSD: 82 T: 26 QT: 377 QTc: 474 Interpretive Statements Sinus rhythm Abnormal R-wave progression, early transition Compared to ECG 02/16/2018 15:20:10 T-wave abnormality no longer present Electronically Signed On 07-08-2018 16:35:08 PST by Domingo Maldonado MD CM:EKGRPT:ELECTROCARDIOGRAM REPORT [id number] ANGELIC HARRY DRAFT REPORT ANGELIC ADLER DO
--- NOTE | ~2018-07-08 | PR ---
[place], [place] PROGRESS NOTE [id number] #: [id number] ROOM: 405 DOCTOR: CAT PHILLIPS MD BIRTHDATE: [birth year] DOS: 07/10/2018 SUBJECTIVE: The patient's breathing continues to improve. OBJECTIVE: VITAL SIGNS: Blood pressure 152/92, heart rate 77 beats per minute, breathing 18 times per minute, temperature 98 degrees Fahrenheit. GENERAL APPEARANCE: The patient is alert and oriented x 3, in no visible distress. HEENT AND NECK: Exam within normal limits. CARDIOVASCULAR SYSTEM: Heart rate is regular in rate and rhythm. S1 and S2 normally audible. LUNGS: Slight expiratory wheezing and decreased breath sounds. ABDOMEN: Soft, nontender. No obvious organomegaly. Bowel sounds are present. EXTREMITIES: Without significant cyanosis or edema. IMPRESSION: 1. The patient with acute exacerbation of chronic obstructive pulmonary disease with acute over chronic respiratory failure, continues to improve with treatment with inhaled corticosteroids, bronchodilator, oxygen, antibiotic and nebulizer treatments. I will keep her at the hospital for one more day. She is not ready for discharge yet. 2. Hypothyroidism, replaced with levothyroxine. 3. Generalized anxiety disorder, treated with hydroxyzine. 4. Benign essential hypertension. Blood pressures are being treated and monitored and are staying normal. 5. Chronic primary insomnia, treated with trazodone and controlled. CAT PHILLIPS MD CM:PNTRANS [id number] CAT PHILLIPS MD 07/10/18 2347 interface
[~2018-07-08 15:09] MED LIST changes: +PYRIDIUM200 M1 PO; +SEPTDS PO; +ZOFRAN4 MG PO
[2018-07-08 15:55] LABS: BASO % 0.4 % (0.0-1.0); EOS # 0.1 10*3/uL (0.0-0.4); EOS % 1.8 % (1.0-4.0); HEMATOCRIT 39.6 % (37.0-47.0); HEMOGLOBIN 13.1 g/dl (12.0-16.0); LYMPH # 2.1 10*3/uL (1.3-4.4); LYMPH % 26.6 % (27.0-41.0); MEAN CELL VOLUME 91.5 fl (81.0-99.0); MEAN CORPUSCULAR HGB 30.3 pg (27.0-31.0); MEAN CORPUSCULAR HGB CONC 33.1 g/dl (33.0-37.0); MEAN PLATELET VOLUME 8.7 fl (9.6-12.3); MONO # 0.5 10*3/uL (0.1-1.0); MONO % 6.7 % (3.0-9.0); NEUT % 64.4 % (47.0-73.0); PLATELET COUNT AUTOMATED 365 10*3/uL (130-400); RED BLOOD COUNT 4.33 10*6/uL (4.10-5.10); RED CELL DISTRI WIDTH 13.2 % (0-14.5); WHITE BLOOD COUNT 7.8 10*3/uL (4.8-10.8)
[2018-07-08 16:00] VITALS: BP 168/89
[2018-07-08 16:06] LABS: INTERNATIONAL NORM RATIO 0.9 (2.0-3.5)
[2018-07-08 16:10] LABS: ALBUMIN 3.1 gm/dl (3.1-4.5); ALKALINE PHOSPHATASE 112 U/L (45-117); BUN 10 mg/dl (7-24); CHLORIDE 108 mmol/L (98-107); LIPASE 86 U/L (73-393); SGOT/AST 6 IU/L (3-35); SGPT/ALT 13 U/L (12-78); SODIUM 144 mmol/L (136-145); TOTAL PROTEIN 6.7 gm/dL (6.4-8.2)
[2018-07-08 16:13] LABS: TROPONIN I < 0.015 ng/ml (<0.045)
[2018-07-08 17:55] VITALS: BP 175/72
[2018-07-08 18:39] VITALS: BP 148/88
--- NOTE | 2018-07-08 18:45 | NUR ---
[facility] 63, admitted to , under the services of Dr. ALAN TRIPLETT,CAT Mann with a diagnosis of COPD. Chief complaint is SOB. Patient arrived via bed from ER. Monitor applied. Initial assessment completed. Vital signs taken and recorded. DR. ALAN TRIPLETT,CAT Mann notified of admission to the unit. Orders received. See assessment for past medical history, medications and allergies. Patient and/or family oriented to unit. [facility] visitation policy reviewed. Clothing/patient valuable form completed. PATITO OGLESBY
[2018-07-08 20:00] VITALS: BP 149/93
--- NOTE | 2018-07-08 20:24 | NUR ---
SPOKE WITH DR PHILLIPS REGARDING PATIENT ORDERS. PER DR PHILLIPS CONTINUE ALL HOME MEDICATIONS. ADD NON CONCENTRATED SWEETS DIET, TYLENOL AND DUONEBS/PULMICORT. ALL ORDERS READ BACK AND VERIFIED WITH DR PHILLIPS.
[2018-07-09] VITALS: BP 143/91
--- NOTE | 2018-07-09 07:35 | NUR ---
TYLENOL GIVEN FOR C/O HEADACHE. WILL MONITOR.
--- NOTE | 2018-07-09 08:40 | NUR ---
TYLENOL EFFECTIVE PER PT.
[2018-07-09 12:00] VITALS: BP 148/86
[2018-07-09 16:00] VITALS: BP 130/89
--- NOTE | 2018-07-09 19:12 | NUR ---
PATIENT RESTING IN BED AT THIS TIME WATCHING TV. DENIES ANY NEEDS OR COMPLAINTS. BED IS IN LOWEST POSITION WITH WHEELS LOCKED. CALL LIGHT IS WITHIN REACH. ENCOURAGED TO USE CALL LIGHT FOR NEEDS. WILL MONITOR.
[2018-07-09 20:00] VITALS: BP 130/90
[2018-07-10] VITALS: BP 140/82
[2018-07-10 07:14] LABS: BASO % 0.3 % (0.0-1.0); EOS # 0.1 10*3/uL (0.0-0.4); EOS % 0.5 % (1.0-4.0); HEMATOCRIT 37.4 % (37.0-47.0); HEMOGLOBIN 12.1 g/dl (12.0-16.0); LYMPH # 3.4 10*3/uL (1.3-4.4); LYMPH % 36.5 % (27.0-41.0); MEAN CORPUSCULAR HGB 30.1 pg (27.0-31.0); MEAN CORPUSCULAR HGB CONC 32.4 g/dl (33.0-37.0); MEAN PLATELET VOLUME 9.1 fl (9.6-12.3); MONO # 0.7 10*3/uL (0.1-1.0); MONO % 7.6 % (3.0-9.0); NEUT % 54.6 % (47.0-73.0); PLATELET COUNT AUTOMATED 364 10*3/uL (130-400); RED BLOOD COUNT 4.02 10*6/uL (4.10-5.10); RED CELL DISTRI WIDTH 13.5 % (0-14.5); WHITE BLOOD COUNT 9.2 10*3/uL (4.8-10.8)
[2018-07-10 07:20] LABS: CHLORIDE 106 mmol/L (98-107); CREATININE 0.73 mg/dL (0.55-1.02); POTASSIUM 3.8 mmol/L (3.5-5.1); SODIUM 143 mmol/L (136-145)
[2018-07-10 07:23] LABS: BUN 23 mg/dl (7-24)
[2018-07-10 08:00] VITALS: BP 152/92
--- NOTE | 2018-07-10 08:30 | NUR ---
PATIENT RESTING QUIETLY IN BED. NO DISTRESS NOTED. RESPIRATIONS EASY, REGULAR ON RA. NO VOICED COMPLAINTS AT THIS TIME. WILL CONTINUE TO MONITOR. CALL LIGHT WITHIN REACH.
[2018-07-10 12:00] VITALS: BP 150/90
--- NOTE | 2018-07-10 14:45 | NUR ---
TUMS GIVEN PER PRN ORDER FOR C/O INDIGESTION. WILL MONITOR EFFECTIVENESS.
[2018-07-10 16:00] VITALS: BP 135/81
--- NOTE | 2018-07-10 16:00 | NUR ---
TUMS EFFECTIVE PER PT.
--- NOTE | 2018-07-10 19:08 | NUR ---
PATIENT SITTING UP IN BED WATCHING TV. DENIES ANY NEEDS OR COMPLAINTS AT THIS TIME. BED IS IN LOWEST POSITION WITH WHEELS LOCKED. CALL LIGHT IS WITHIN REACH. ENCOURAGED TO USE CALL LIGHT FOR NEEDS. WILL MONITOR.
[2018-07-10 20:00] VITALS: BP 120/68
--- NOTE | 2018-07-10 20:56 | NUR ---
PRN TYLENOL AND VISTARIL GIVEN FOR COMPLAINTS OF HEADACHE AND ANXIETY. WILL EVALUATE EFFECTIVENESS. CALL LIGHT IS WITHIN REACH.
--- NOTE | 2018-07-10 22:16 | NUR ---
PATIENT STATES VISTARIL AND TYLENOL EFFECTIVE. NO FURTHER NEEDS AT THIS TIME. WILL MONITOR.
[2018-07-11] VITALS: BP 135/82
--- NOTE | 2018-07-11 04:11 | NUR ---
PATIENT RESTING IN BED ON LEFT SIDE WITH EYES CLOSED. RESPIRATIONS ARE EASY AND REGULAR. NO DISTRESS IS NOTED. CALL LIGHT IS WITHIN REACH. WILL MONITOR.
[2018-07-11 08:00] VITALS: BP 144/90
--- NOTE | 2018-07-11 09:00 | NUR ---
Funeral Home Director in to see patient. She is resting with her eyes closed. Reps even and unlabored. Will follow up at a later time.
--- NOTE | 2018-07-11 10:40 | NUR ---
Junior Network Engineer in to see patient. She is resting with her eyes closed. Reps even and unlabored. Will follow up at a later time.
[2018-07-11 12:00] VITALS: BP 154/86
--- NOTE | 2018-07-11 14:43 | NUR ---
PHYSICAL THERAPY PAtient reports she has no PT needs. D/C PT as patient requests. Thank you for this referral. Lety Guzman,PT
[2018-07-11] MEDS ORDERED: MEDROL DOSEPAK4 MG PO (17:21)
[2018-07-11] MEDS ORDERED: AUGMENTIN 875-875 MG PO (17:21)
--- NOTE | 2018-07-11 17:30 | NUR ---
Discharge instructions reviewed with patient/family. Patient receptive and verbalizes understanding. Follow-up care understood. Written instructions given to patient/family. pt understands to excelsior picker new rx at pharmacy. understands to take medications as directed. iv removed, dressing applied. pt has no questions on discharge at this time TIFFANI SHARMA
--- NOTE | 2018-07-11 18:20 | NUR ---
PT DISCHARGED, DECLINED WHEELCHAIR
== END 2018-07-11 18:20 | disposition home or self-care (01) | DRG 189 ==
LOC: ED 15:09 → 4E 16:59 → EDHOLD 16:59 → 4E 17:32
PROVIDERS: Emergency Medicine; ADMIT Internal Medicine
DX: J96.21 Acute and chronic respiratory failure with hypoxia (principal); J44.1 Chronic obstructive pulmonary disease with (acute) exacerbation; F33.1 Major depressive disorder, recurrent, moderate; G89.29 Other chronic pain; F17.200 Nicotine dependence, unspecified, uncomplicated; E11.9 Type 2 diabetes mellitus without complications; I10 Essential (primary) hypertension; E03.9 Hypothyroidism, unspecified; K21.0 Gastro-esophageal reflux disease with esophagitis; F41.1 Generalized anxiety disorder; Z88.1 Allergy status to other antibiotic agents; Z83.3 Family history of diabetes mellitus; Z80.8 Family history of malignant neoplasm of other organs or systems; Z82.49 Family history of ischemic heart disease and other diseases of the circulatory system; Z91.041 Radiographic dye allergy status; Z79.84 Long term (current) use of oral hypoglycemic drugs

== ENCOUNTER 2018-08-08 11:04 | Inpatient (IN) | payer OTHER ==
[~2018-08-08] VITALS: Ht 162.5 cm; Wt 86.7 kg
--- NOTE | ~2018-08-08 | WRIGHTHP ---
[place], [place] PATIENT HISTORY AND PHYSICAL EXAM NAME: GLORIA CHIN [facility] #: [id number] UNIT #: [id number] ROOM: 412 DOCTOR: HARISH LIGHT MD BIRTHDATE: [birth year] DOS: 08/09/2018 HISTORY OF PRESENT ILLNESS: The patient is 63 years old, very well known to us. She came to the office with complaints that she has been dizzy and lightheaded for the last few days, some mild shortness of breath. Denies having any chest pains or palpitations, does not have any abdominal pain, nausea, any emesis, has been taking her medications, but she has noticed that occasionally blood pressures are running low. She was evaluated in the office, and was found to have orthostatic hypotension, and was admitted to the hospital. The patient has not had any runny nose, sinus congestion, has not had any diarrhea or increased frequency of urination. She states that she has been drinking fairly good amount of liquids and has been taking her medications regularly. PAST MEDICAL HISTORY: 1. Significant for recent hospitalization about a month ago for acute exacerbation of COPD. 2. Benign hypertension. 3. Type 2 diabetes mellitus, non-insulin dependent. 4. Moderate cigarette smoker. 5. Generalized anxiety disorder. 6. Major depression, recurrent, moderate to severe hypothyroidism. MEDICATIONS: Medications that she is currently on are BuSpar 15 mg 3 times a day, Symbicort 160 two puffs twice a day, Vistaril 50 q.8 hours p.r.n., levothyroxine 50 mcg daily, metformin 500 daily, metoprolol 50 b.i.d., Protonix 40 daily, trazodone 200 mg at bedtime. SOCIAL HISTORY: Smoker for about half a pack of cigarettes a day. Denies using any alcohol. Lives at home with her . PHYSICAL EXAMINATION: GENERAL: She is awake, alert and oriented. VITAL SIGNS: Blood pressure was 120/70 with a drop in blood pressure to 110/60 when she stood up. HEENT: Unremarkable. LUNGS: Clear except for a few scattered wheezes. HEART: Regular. ABDOMEN: Obese, soft, nontender. EXTREMITIES: Without any edema. ASSESSMENT AND PLAN: 1. The patient who had complaints of dizziness with orthostatic hypotension. The patient will be admitted to the hospital for IV fluids, which she is not dehydrated. Also, this could be related to autonomic neuropathy from diabetes mellitus. The patient may benefit from Florinef. Cardiology consultation, echocardiogram has been ordered. Rule out SD protocol, so far has been negative. 2. Benign hypertension, controlled. Restart metoprolol. I will add clonidine. 3. Type 2 diabetes mellitus. Blood sugars are controlled. 4. Moderate cigarette smoker with some obstructive lung disease noted. Advised [place], [place] PATIENT HISTORY AND PHYSICAL EXAM NAME: GLORIA CHIN UNIT #: [id number] ROOM: [facility] DOCTOR: HARISH LIGHT MD BIRTHDATE: [birth year] [address] of the chest has been ordered. HARISH LIGHT MD CM:HISPHYS:PATIENT HISTORY AND PHYSICAL EXAMINATION 8 HARISH LIGHT MD 08/09/18 0835 interface
--- NOTE | ~2018-08-08 | PR ---
[place], [place] PROGRESS NOTE [id number] UNIT #: [id number] ROOM: 412 DOCTOR: HARISH LIGHT MD BIRTHDATE: [birth year] DOS: 08/10/[address] Arnold's consult. SUBJECTIVE: The patient has quite bad headaches this morning, states it happened during the night. OBJECTIVE: VITAL SIGNS: Graphic trend shows a pressure of 157/87. She dropped to 142/72 on standing, temperature afebrile, pulse of 70, respirations 16. LUNGS: Clear. HEART: Regular. ABDOMEN: Obese, soft. EXTREMITIES: Without any edema. ASSESSMENT AND PLAN: 1. Continued orthostatic hypotension from autonomic neuropathy. We will discontinue Florinef and put on midodrine. The patient was given slow IV hydration, which she is not taking that anymore. 2. Benign hypertension. Appreciate Dr. Arnold's input. Lisinopril was added. I will discontinue the metoprolol. 3. Type 2 diabetes mellitus, controlled. 4. Headaches, Toradol will be given today. This is multifactorial. CT scan of the head was negative. HARISH LIGHT MD CM:PNTRANS 0832 1008 HARISH LIGHT MD 08/10/18 1009 interface
--- NOTE | ~2018-08-08 | CON ---
[place], [place] REPORT OF CONSULTATION [id number] #: [id number] ROOM: 412 DOCTOR: HOWARD PARNELL MD BIRTHDATE: [birth year] DOS: 08/09/2018 HISTORY OF PRESENT ILLNESS: This is a 63-year-old -[place] woman with a history of essential hypertension with longstanding type 2 diabetes mellitus, major depression and anxiety disorder, who has never had a heart attack, heart failure, any rhythm disorder of the heart or any kidney problems. She has never had a stroke or cancer. She had been on lisinopril 40 mg daily for hypertension and because it was not adequately controlled, she was started on metoprolol tartrate 50 mg b.i.d. couple of months ago. She was in Dr. Nicol Titus's office yesterday and her blood pressure was found to be rather low. There was significant orthostatic symptomatic drop in blood pressure. She was admitted to the hospital. She gets palpitation when she has this lightheadedness, but this happens only when she is standing. There is no palpitation. Otherwise, she has not had any chest pain. No PND, orthopnea or swelling of the lower extremities. She is short of breath on exertion on account of COPD. REVIEW OF SYSTEMS: No abdominal pain, no blood in the stool. She has no other symptoms reported. SOCIAL HISTORY: She smokes 5 cigarettes a day and smoked about a pack a day last year. HOME MEDICATIONS: Metoprolol tartrate 50 mg b.i.d., lisinopril 40 mg daily, Protonix 40 mg daily, trazodone 200 mg daily, metformin 500 mg daily, levothyroxine 50 mcg daily, hydroxyzine and Vistaril 50 mg every 8 hours for anxiety p.r.n., Symbicort and also BuSpar. PHYSICAL EXAMINATION: GENERAL: This reveals a patient who is pleasant, alert, oriented. She is not in any distress. She has oxygen on. There is no cyanosis or jaundice. VITAL SIGNS: Temperature is normal, pulse is 64 and regular, blood pressure 168/82 and previous blood pressure was 154/59. NECK: JVP is normal. AJR is negative. There is no carotid bruit. She has no murmur. CARDIOVASCULAR: There is no cardiomegaly. Pedal pulses are excellent. There is no edema in lower extremities. RESPIRATORY: Breath sounds are at least moderately so diminished bilaterally with lot of inspiratory, expiratory adventitious sounds. LABORATORY DATA: Hemoglobin 12.1 mg/dL. Electrolytes are normal. Renal function is also normal. DIAGNOSTIC STUDIES: ECG showed normal sinus rhythm with early R-wave progression. IMPRESSION: This patient has essential hypertension that had not been adequately controlled. Metoprolol tartrate 50 b.i.d. was added and now she is [place], [place] REPORT OF CONSULTATION NAME: GLORIA CHIN UNIT #: [id number] ROOM: 412 DOCTOR: HOWARD PARNELL MD BIRTHDATE: [birth year] noted to have orthostatic hypotension. I think this is probably multifactorial and autonomic neuropathy probably has significant role to play. Blood pressure now is fairly elevated. Currently, she is not on lisinopril and only metoprolol 50 b.i.d. RECOMMENDATIONS: I think metoprolol tartrate should be discontinued and lisinopril 20 mg b.i.d. should be added instead of 40 once a day and see what the blood pressure does. If she has significantly elevated systolic blood pressure, then I think small dose of beta ravinder or calcium channel ravinder can be added. I thank you for this consult. HOWARD PARNELL MD CM:CONSTR:REPORT OF CONSULTATION 1040 08/09/18 1338 interface
--- NOTE | ~2018-08-08 | PR ---
[place], [place] PROGRESS NOTE NAME: GLORIA CHIN [facility] #: [id number] UNIT #: [id number] ROOM: 412 DOCTOR: HARISH LIGHT MD BIRTHDATE: [birth year] DOS: 08/11/2018 SUBJECTIVE: The patient feels much better this morning. He has a slight headache, but nothing considering yesterday. Denies having any chest pains, palpitations, any runny nose, sinus congestion, any chest pains, palpitations, any urinary symptoms, had a little low-grade temperature during 8 o'clock this morning at 100.1, blood pressure has come up and orthostatic drop is no longer noted. OBJECTIVE: VITAL SIGNS: Blood pressure is 142/92 this morning, pulse of 100, respirations 18. LUNGS: Clear. HEART: Regular. ABDOMEN: Obese, soft, nontender. EXTREMITIES: Without any edema. ASSESSMENT: 1. Autonomic neuropathy with orthostatic hypotension, improved with midodrine. 2. Benign hypertension, much better controlled. 3. Low-grade fever, possibly from a sinus infection. A dose of Z-WILLI will be given. The patient is stable and can be discharged to home today. HARISH LIGHT MD CM:PNTRANS 0813 1258 HARISH LIGHT MD 08/11/18 1258 interface
--- NOTE | ~2018-08-08 | DS ---
[place], [place] DISCHARGE SUMMARY NAME: GLORIA CHIN [facility] #: [id number] UNIT #: [id number] ROOM: 412 DOCTOR: HARISH LIGHT MD BIRTHDATE: [birth year] DOS: 08/11/2018 DIAGNOSES: 1. Autonomic neuropathy with orthostatic hypotension. 2. Benign hypertension. 3. Cephalalgia, possibly from paranasal sinusitis. 4. Type 2 diabetes mellitus, non-insulin dependent. 5. Moderate cigarette smoker. 6. Generalized anxiety disorder. 7. Hypothyroidism. 8. Major depression, moderate to severe history. DISCHARGE MEDICATIONS: Will be midodrine 10 mg twice a day, lisinopril 20 b.i.d., diltiazem 120 daily, levothyroxine 50 mcg daily, BuSpar 15 t.i.d., trazodone 200 at bedtime, Protonix 40 daily, hydroxyzine 50 q. 8, and Symbicort 160 two puffs twice a day. We have discontinued the clonidine and the metoprolol. HOSPITAL COURSE: The patient is 63 years old, comes in with complaints of dizziness. Please refer to H and P for details. She was found to be orthostatic. She was placed on IV fluids. Labs were all fairly within normal limits. Her pressure continued to drop when standing up. Consultation with Dr. Arnold was obtained. A CT of the head, carotid Doppler, and CTA of the chest were all negative. Blood work was normal. The patient was placed on midodrine with improvement in the blood pressures, orthostasis seems to be correcting. Her blood pressures are controlled. The patient is overall stable and improved. The plan is to discharge her to home today to be followed up as an outpatient. She did have a low-grade temperature this morning, most likely from sinus drainage. A prescription for Z-WILLI will be ordered. HARISH LIGHT MD CM:DISCHARG 0818 HARISH LIGHT MD 08/11/18 1956 interface
[2018-08-08 11:30] VITALS: BP 127/80
[2018-08-08 11:40] VITALS: BP 127/80
--- NOTE | 2018-08-08 11:40 | NUR ---
A 63, admitted to , under the services of HARISH Clemens MD with a diagnosis of ORTOSTATIC HYPOTENSION. Chief complaint is DIZZINESS. Patient arrived via wheel chair from [place]. Monitor applied. Initial assessment completed. Vital signs taken and recorded. HARISH CLEMENS MD notified of admission to the unit. Orders received. See assessment for past medical history, medications and allergies. Patient and/or family oriented to unit. Clothing/patient valuable form completed. TED OLIVAS
--- NOTE | 2018-08-08 11:47 | NUR ---
IV started left antecubital with #22 angiocath after 0 attempts. The IV site was prepped with Chloraprep. Heparin lock attached. Sterile dressing applied. Patient tolerated precedure well. Procedure performed according to [facility] policy & procedure. TED OLIVAS
--- NOTE | 2018-08-08 12:30 | NUR ---
ORTHOSTATIC BPs OBTAINED SUPINE; CJ=013/81 PULSE=62 ASYMPTOMATIC SITTING; HR=601/81 PULSE=66 C/O LIMBS "SHAKEY" STANDING; MO=825/73 PULSE=78 C/O LIMBS "SHAKEY" NO OTHER SYMPTOMS.
--- NOTE | 2018-08-08 13:00 | NUR ---
INFORMED OF MEDICATIONS VERIFIED, STTAES TO HOLE CLONIDINE AND LOPRESSOR CONTINUE THE REST. OTHER ORDERS IN PLACE PER WISHES. REQUEST TO BE CALL WITH LAB RESULTS.
[2018-08-08 13:46] LABS: ALBUMIN 3.1 gm/dl (3.1-4.5); ALKALINE PHOSPHATASE 91 U/L (45-117); BASO # 0.1 10*3/uL (0.0-0.1); BASO % 0.7 % (0.0-1.0); BUN 15 mg/dl (7-24); CHLORIDE 106 mmol/L (98-107); CREATININE 0.89 mg/dL (0.55-1.02); EOS # 0.3 10*3/uL (0.0-0.4); EOS % 3.4 % (1.0-4.0); HEMATOCRIT 37.9 % (37.0-47.0); HEMOGLOBIN 12.1 g/dl (12.0-16.0); LYMPH # 2.5 10*3/uL (1.3-4.4); LYMPH % 33.1 % (27.0-41.0); MEAN CELL VOLUME 93.1 fl (81.0-99.0); MEAN CORPUSCULAR HGB 29.7 pg (27.0-31.0); MEAN CORPUSCULAR HGB CONC 31.9 g/dl (33.0-37.0); MEAN PLATELET VOLUME 8.8 fl (9.6-12.3); MONO # 0.6 10*3/uL (0.1-1.0); MONO % 8.2 % (3.0-9.0); NEUT % 54.2 % (47.0-73.0); PLATELET COUNT AUTOMATED 276 10*3/uL (130-400); RED BLOOD COUNT 4.07 10*6/uL (4.10-5.10); RED CELL DISTRI WIDTH 13.7 % (0-14.5); SGOT/AST 5 IU/L (3-35); SGPT/ALT 12 U/L (12-78); SODIUM 140 mmol/L (136-145); TOTAL PROTEIN 5.8 gm/dL (6.4-8.2); WHITE BLOOD COUNT 7.4 10*3/uL (4.8-10.8)
[2018-08-08 13:47] LABS: TROPONIN I < 0.015 ng/ml (<0.045)
[2018-08-08 16:00] VITALS: BP 144/70
[2018-08-08 20:00] VITALS: BP 118/88
[2018-08-09] VITALS: BP 154/79
--- NOTE | 2018-08-09 04:11 | NUR ---
PATIENT RESTING IN BED WITH EYES CLOSED. RESPS EASY AND REGULAR. IV FLUIDS INFUSING WITHOUT DIFFICULTY. BED IN LOWEST POSITION, CALL LIGHT IN REACH
--- NOTE | 2018-08-09 07:13 | NUR ---
ASSESSMENT COMPLETED. PT IS RESTING COMFORTABLY AT THIS TIME AWAITING BREAKFAST. NO COMPLAINTS OF DIZZINESS AT THIS TIME. GALEN MCMULLEN
[2018-08-09 07:54] VITALS: BP 168/82
--- NOTE | 2018-08-09 08:15 | NUR ---
IN ROOM; ORTHO'S TAKEN AND ARE NEGATIVE AT THIS TIME.
--- NOTE | 2018-08-09 08:26 | NUR ---
IVF RATE CHANGED FROM 100 TO 60 PER ORDER. GALEN MCMULLEN
--- NOTE | 2018-08-09 08:27 | NUR ---
NOTIFIED OF CONSULT & HE WILL BE IN TO SEE PATIENT TODAY.
--- NOTE | 2018-08-09 08:35 | NUR ---
TO RADIOLOGY WITH W/C. ACCOMPANIED BY STUDENT NURSE.
--- NOTE | 2018-08-09 08:43 | NUR ---
ORDER TO HOLD GLUCOPHAGE D/T CT TODAY. ALREADY ADMINISTERED PRIOR TO ORDER.
--- NOTE | 2018-08-09 09:00 | NUR ---
PT RETURN TO FLOOR. IVF INFUSING. NO C/O AT THIS TIME.
--- NOTE | 2018-08-09 09:00 | NUR ---
Consulting Technical Director in to see patient. She is currently being taken to x-ray by wheelchair. Will follow up with at a later time.
[2018-08-09 12:11] VITALS: BP 158/90
--- NOTE | 2018-08-09 13:26 | NUR ---
PT RESTING COMFORTABLY AT THIS TIME. UNDERSTANDING OF NPO STATUS AND COMPLIANT. SLEEPING ON AND OFF. PLEASANT AND COOPERATIVE. CALL LIGHT WITHIN REACH. NO COMPLAINTS AT THIS TIME. GALEN MERCEDESN
--- NOTE | 2018-08-09 13:55 | NUR ---
Stereo Equipment Installer in to talk to patient. Patient states lives at home with her oldest daughter, youngest son, and 18 yo twins. There are 0 steps in the home. Physician: Dr. Nicol Titus Pharmacy: [facility] health services: none Patient's level of ADLs: INDEPENDENT Patient has working utilities: yes DME: nebulizer Follow-up physician's appointment after d/c: she prefers to make her own follow up appt after discharge Does patient want to access PORTAL?: no Discharge plan discussed with patient. She lives at home with her family. She is independent in her ADLs and ambulation. Discussed home health care services and she denies any home needs at this time. When medically stable she will be discharged to home. JAYE COLIN
[2018-08-09 16:00] VITALS: BP 148/90
--- NOTE | 2018-08-09 19:20 | NUR ---
PATIENT RESTING IN BED WITH NO S/S OF DISTRESS. NO NEEDS MADE. BED IN LOWEST POSITION, CALL LIGHT IN REACH
[2018-08-09 20:00] VITALS: BP 151/98
[2018-08-10] VITALS (7 sets, daily range): BP systolic 142–160; BP diastolic 82–106
--- NOTE | 2018-08-10 00:57 | NUR ---
PATIENT STATES TO TURN THE FLUIDS OFF. STATES IT IS TOO MUCH AND SHE IS PEEING EVERY 15 MINUTES. FLUIDS OFF AT THIS TIME
--- NOTE | 2018-08-10 00:59 | NUR ---
MEDICATED WITH PRN ALEVE FOR C/O HEADACHE. WILL MONITOR
--- NOTE | 2018-08-10 02:39 | NUR ---
PATIENT SITTING IN BED WATCHING TV. STATES MEDICATION SOMEWHAT EFFECTIVE. NO NEEDS MADE. CONTINUES TO REFUSE IV FLUIDS. BED IN LOWEST POSITION, CALL LIGHT IN REACH
--- NOTE | 2018-08-10 08:00 | NUR ---
DR LIGHT IN TO SEE PT, SHE WANTED BP TAKEN MANUALLY. BP LAYING DOWN 158/82 STANDING UP 148/72. PT DENIES DIZZINESS. NEW MED CHANGE ORDERS TO FOLLOW DR LIGHT STATES. PT ALSO C/O "MASSIVE HEADACHE" DR LIGHT STATES SHE WILL ORDER SOMETHING.
--- NOTE | 2018-08-10 08:30 | NUR ---
Hydraulic Elevator Constructor in to see patient. No new needs or request at this time. She denies any home needs at this time. When medically stable she will be discharged to home.
--- NOTE | 2018-08-10 08:40 | NUR ---
MEDICATED WITH TORADOL PER ORDERS. CALL LIGHT IN REACH. WILL MONITOR
--- NOTE | 2018-08-10 19:30 | NUR ---
CHECKED PATIENT BP MANUAL 160/102. GAVE LISINAPRIL EARLY AND HELD THE PROAMATINE, PATIENT COMPLAINS OF HEADACHE AND ANXIETY. TYLENOL AND VISTARIL GIVEN. WILL MONITOR AND REASSESS.
--- NOTE | 2018-08-10 20:25 | NUR ---
24 HR chart check completed.
--- NOTE | 2018-08-10 21:26 | NUR ---
ON REASSESSMENT, PATIENT STILL HAS A SLIGHT HEADACHE, BUT HAS IMPROVED. AND BP 132/98(M).
[2018-08-11] VITALS: BP 134/77
[2018-08-11 08:00] VITALS: BP 132/86
[2018-08-11] MEDS ORDERED: CARDIZEM120 MG PO (08:16)
[2018-08-11] MEDS ORDERED: MIDODRINE HCL5 M1 PO (08:16)
[2018-08-11] MEDS ORDERED: LISINOPRIL20 MG PO (08:16)
[2018-08-11] MEDS ORDERED: ZITHROMAX500 MG PO (08:19)
--- NOTE | 2018-08-11 08:30 | NUR ---
Patient resting quietly with no c/o discomfort. Respirations easy and regular. Vital signs stable. No overt distress. MI FOSTER R
--- NOTE | 2018-08-11 09:45 | NUR ---
Discharge instructions reviewed with patient/family. Patient receptive and verbalizes understanding. Follow-up care arranged. Written instructions given to patient/family. MI FOSTER
[2018-10-16] MEDS ORDERED: NORCO 5-325 TA1 EACH PO (01:35)
[2018-10-18] MEDS ORDERED: METOPROLOL PO (14:13)
[2018-10-20] MEDS ORDERED: NORCO 5-325 TA1 EACH PO (07:43)
[2018-10-20] MEDS ORDERED: ZOFRAN4 MG PO (07:44)
[2018-10-20] MEDS ORDERED: PERCOCET 5-3251 EACH PO (12:34)
== END 2018-08-11 09:45 | disposition home or self-care (01) | DRG 74 ==
LOC: 4E 11:04
PROVIDERS: ADMIT Internal Medicine
DX: E11.43 Type 2 diabetes mellitus with diabetic autonomic (poly)neuropathy (principal); I95.1 Orthostatic hypotension; I10 Essential (primary) hypertension; F17.210 Nicotine dependence, cigarettes, uncomplicated; J44.9 Chronic obstructive pulmonary disease, unspecified; F41.1 Generalized anxiety disorder; F32.9 Major depressive disorder, single episode, unspecified; E03.9 Hypothyroidism, unspecified; J32.9 Chronic sinusitis, unspecified; Z79.899 Other long term (current) drug therapy

== ENCOUNTER 2018-08-22 09:30 | Inpatient (IN) | payer OTHER ==
[~2018-08-22] VITALS: Ht 162.6 cm; Wt 89.4 kg
--- NOTE | ~2018-08-22 | PR ---
[place], [place] [id number] #: [id number] ROOM: 516 DOCTOR: HARISH LIGHT MD BIRTHDATE: [birth year] DOS: SUBJECTIVE: The patient is doing well, does not have any new complaints other than pain. OBJECTIVE: VITAL SIGNS: Blood pressure 120/82, pulse of 100, respirations 19, temperature 97.3. LUNGS: Diminished breath sounds, clear. HEART: Regular. ABDOMEN: Obese, soft, nontender. EXTREMITIES: Without any edema. ASSESSMENT AND PLAN: 1. Contusion of the left knee after accidental fall with hematoma, status post evacuation with wound VAC. The patient has been walking to the bathroom without any new problems, so the plan is to discharge her to home today if okay with Dr. Willis. Discharge orders have been written. Visiting nurses will be consulted just in case the patient goes home with a DENNIS drain. 2. Benign hypertension, controlled. HARISH LIGHT MD CM:PNTRANS [id number] HARISH LIGHT MD 08/24/18 1657 interface
--- NOTE | ~2018-08-22 | O ---
[place], [place] OPERATIVE NOTE NAME: GLORIA CHIN [facility] #: [id number] UNIT #: [id number] ROOM: 516 DOCTOR: GERARDO WILLIS DO BIRTHDATE: [birth year] DOS: 08/23/2018 PREOPERATIVE DIAGNOSIS: Left thigh hematoma distal medial. POSTOPERATIVE DIAGNOSIS: Left thigh hematoma distal medial. OPERATIVE PROCEDURE: Left thigh incision and drainage of hematoma distal and medial. SURGEON: Gerardo Willis DO. YARN PACKER: Chloe. ANESTHESIA: Colbert, CNC FIELD SERVICE ENGINEER. General LMA intubation. INDICATIONS: The patient is a 63-year-old female with a history of fall at her home the day prior to surgery. She had significant pain and swelling at the distal medial thigh and CT scan indicated a 9 x 4 cm hematoma, which extended for 15 cm in total. Attempted aspiration was performed at bedside without success. The risks and benefits of the procedure were explained to the patient preoperatively. Preoperative labs and x-rays were obtained. DESCRIPTION OF PROCEDURE: The left thigh was marked in the holding room. The patient was brought to the operative suite. General anesthetic with LMA intubation was performed. Timeout was performed. Tourniquet was placed on the upper thigh. The extremity was prepped and draped in usual orthopedic fashion. The patient received Ancef 2 grams IV piggyback. The extremity was elevated and the tourniquet was inflated to 350 mmHg. A midline incision was planned just proximal to the patella and extending 6 cm proximal. The area was injected with Marcaine 0.5 with epinephrine. The incision was made sharply with the scalpel and subcutaneous tissue was spread down to the quadriceps mechanism. A hematoma was evacuated, which was noted to be thick clotted blood. This extended both proximally and distally and was consistent with the CT findings. The area was copiously irrigated with 2 liters of fluid. The cultures and Gram stain were obtained. The area was closed over a Hemovac drain. 2-0 Vicryl followed by skin chacorta completed the closure. The area was again injected with Marcaine 0.5% with epinephrine. A bulky dressing of Xeroform, 4 x 4's, cast padding, ABDs, and an WALT was performed from mid calf to the upper thigh after the tourniquet had been released. The anesthetic was reversed. The patient was extubated and taken to recovery room in satisfactory condition. Sponge and needle count correct. ESTIMATED BLOOD LOSS: 10 mL with approximately 150 mL of a thickened clotted blood. SPECIMENS: Gram stain, culture and sensitivity. [place] OPERATIVE NOTE NAME: GLORIA CHIN UNIT #: [id number] ROOM: [facility] DOCTOR: GERARDO WILLIS DO BIRTHDATE: [birth year] DRAINS: Hemovac. PACKING: None. COMPLICATIONS: None. FINDINGS: Hematoma, left medial thigh deep to the dermis and adipose layer, but superficial to the fascia. GERARDO WILLIS DO CM:OPRECORD:OPERATIVE NOTE 0817 GERARDO WILLIS DO 08/24/18 0857 interface
--- NOTE | ~2018-08-22 | DS ---
[place], [place] DISCHARGE SUMMARY NAME: GLORIA CHIN [facility] #: [id number] UNIT #: [id number] ROOM: 516 DOCTOR: HARISH LIGHT MD BIRTHDATE: [birth year] DOS: 08/24/2018 DIAGNOSES: 1. Accidental fall with contusion of the left knee with hematoma evacuation and a DENNIS drain by Dr. Willis. 2. Benign hypertension, controlled. 3. Autonomic neuropathy with orthostatic hypotension. 4. Chronic obstructive pulmonary disease. 5. Moderate cigarette smoker. 6. Type 2 diabetes mellitus. 7. Major depression, moderate, recurrent. 8. Generalized anxiety disorder. 9. Primary insomnia. DISCHARGE MEDICATIONS: Will be Tracy 5/325 t.i.d. p.r.n. 1 week worth of medicine was given, Symbicort 160 two puffs twice a day, BuSpar 15 t.i.d., diltiazem 360 daily, Vistaril 50 q.8 hours p.r.n., levothyroxine 50 mcg daily, lisinopril 20 b.i.d., metformin 500 daily, midodrine 10 b.i.d., Protonix 40 daily and trazodone 200 at bedtime. HOSPITAL COURSE: The patient is 63 years old. She was walking across the room trying to come in for a stress test the morning of admission when she tripped over her grandson's scooter, fell down, hit her left knee, developed a large hematoma and she was then sent to the Emergency Room. In the ER, she was evaluated, had a CT of the knee, which showed mostly a large hematoma on top of the knee, but nothing intraarticularly. Dr. Willis was consulted. The patient was taken for wound evacuation on 08/23/2018 and a DENNIS drain was placed. The patient has been walking to the bathroom after the procedure and is not having any new problems. The patient is relatively stable and is not having any complaints, so the plan is to discharge her to home today with visiting nurses. The patient has not had any new issues here in the hospital and the plan is to discharge and follow up as an outpatient. Her blood pressures have been controlled. CBC shows a hemoglobin of 10.0, which has not shown significant drop since admission. Admission hemoglobin was 13.3, it did drop to 10.9 on 08/23/2018 but slight drop was noticed on 08/24/2018 at 10.0. This will be followed up as an outpatient. [place], [place] DISCHARGE SUMMARY NAME: GLORIA CHIN UNIT #: [id number] ROOM: 516 DOCTOR: HARISH LIGHT MD BIRTHDATE: [birth year] HARISH LIGHT MD CM:DISCHARG 0830 [id number] HARISH LIGHT MD 08/24/18 1130 interface
--- NOTE | ~2018-08-22 | EKG ---
[place], [place] ELECTROCARDIOGRAM REPORT NAME: GLORIA CHIN UNIT #: [id number] ROOM: 516 DOCTOR: IVAN DRAFT REPORT BIRTHDATE: [birth year] [facility] Test Date: 2018-08-22 Test Time: 18:26:29 Pat Name: GLORIA CHIN Department: Room: 516 1 Gender: F Poolroom/Poolhall Manager: Ruby Harmon : 1955 Requested By: CARLENE VIZCARRA Order Number: [id number] Reading MD: Nile Zazueta MD Measurements Intervals Beggs Rate: 89 P: 39 MD: 167 QRS: 13 QRSD: 81 T: 32 QT: 401 QTc: 488 Interpretive Statements Sinus rhythm Abnormal R-wave progression, early transition Borderline T wave abnormalities Borderline prolonged QT interval Compared to ECG 07/08/2018 15:37:10 T-wave abnormality now present Electronically Signed On 08-26-2018 9:41:16 PST by Nile Zazueta MD CM:EKGRPT:ELECTROCARDIOGRAM REPORT [id number] CARLENE HARRY DRAFT REPORT CARLENE VIZCARRA DO
--- NOTE | ~2018-08-22 | WRIGHTHP ---
[place], [place] PATIENT HISTORY AND PHYSICAL EXAM NAME: GLORIA CHIN [facility] #: [id number] UNIT #: [id number] ROOM: 516 DOCTOR: HARISH LIGHT MD BIRTHDATE: [birth year] DOS: 08/22/2018 HISTORY OF PRESENT ILLNESS: The patient is 63 years old, very well known to us. She was supposed to have a stress test yesterday morning. She got up in the morning, got ready and was walking across the room, she tripped over her grandson's scooter and hit her left knee. She came to the Emergency Room because of significant swelling in the knee joint and significant pain was also noted. She denied having any chest pains, palpitations, does not have any fever or chills, does not have any abdominal pain, nausea, emesis. She did not have any dizziness or lightheadedness either. PAST MEDICAL HISTORY: 1. Significant for recent hospitalization for autonomic neuropathy. 2. Benign hypertension. 3. Chronic obstructive pulmonary disease. 4. Moderate cigarette smoker. 5. Type 2 diabetes mellitus. 6. Generalized anxiety disorder. 7. Major depression. MEDICATIONS: She is currently on are BuSpar 15 mg t.i.d., Cardizem 360 daily, hydroxyzine 50 q.8., levothyroxine 50 mcg daily, lisinopril 20 b.i.d., meloxicam 7.5 b.i.d., metformin 500 mg daily, midodrine 10 b.i.d., Protonix 40 daily, trazodone 200 mg at bedtime. SOCIAL HISTORY: Smoker of about half to 1 pack of cigarettes a day. Denies using any alcohol. PHYSICAL EXAMINATION: GENERAL: She is awake and alert and oriented. VITAL SIGNS: Blood pressure is 108/82, pulse of 103, respirations 18, temperature 98.0. LUNGS: Diminished breath sounds. No wheezes, rales or rhonchi heard. HEART: Regular. ABDOMEN: Obese, soft, nontender. EXTREMITIES: Without any edema on the lower legs, left knee large hematoma. ASSESSMENT AND PLAN: 1. Accidental fall with hematoma. CT of the left knee joint showed large soft tissue hematoma, no fractures noted and there was no effusion in the joints either. Dr. Willis has been consulted. Pain medications ordered. 2. Benign hypertension, controlled. Home medications continued. This is not a EXHIBITS COORDINATOR event. The patient did not have any dizziness or lightheadedness. No new changes made in the treatment plan. Meloxicam will be discontinued because of the large hematoma and we will give Dilaudid for pain control. [place], [place] PATIENT HISTORY AND PHYSICAL EXAM NAME: GLORIA CHIN UNIT #: [id number] ROOM: 516 DOCTOR: HARISH LIGHT MD BIRTHDATE: [birth year] HARISH LIGHT MD CM:HISPHYS:PATIENT HISTORY AND PHYSICAL EXAMINATION 1350 1401 HARISH LIGHT MD 08/23/18 1402 interface
--- NOTE | ~2018-08-22 | PR ---
[place], [place] PROGRESS NOTE NAME: [facility] [id number] UNIT #: [id number] ROOM: 516 DOCTOR: CAT PHILLIPS MD BIRTHDATE: [birth year] DOS: 08/24/2018 SUBJECTIVE: The patient started in nausea and vomiting this morning. OBJECTIVE: VITAL SIGNS: Blood pressure 120/82, heart rate 100 beats per minute, breathing 19 times per minute, patient is afebrile. GENERAL APPEARANCE: The patient is alert and oriented x 3, in no visible distress. Acute nausea and vomiting starting this morning to be treated with IV Zofran. HEENT AND NECK: Exam within normal limits. CARDIOVASCULAR SYSTEM: Heart rate is regular in rate and rhythm. S1 and S2 normally audible. LUNGS: Clear to auscultation. ABDOMEN: Soft, nontender. No obvious organomegaly. Bowel sounds are present. EXTREMITIES: Without significant cyanosis or edema. CAT PHILLIPS MD CM:PNTRANS [id number] CAT PHILLIPS MD 08/25/18 1150 interface
[~2018-08-22 09:30] MED LIST changes: +CARDIZEM120 MG PO; +LISINOPRIL20 MG PO; +MIDODRINE HCL5 M1 PO; +ZITHROMAX500 MG PO
[2018-08-22 09:35] VITALS: BP 164/74
[2018-08-22 09:54] LABS: BASO # 0.1 10*3/uL (0.0-0.1); BASO % 0.5 % (0.0-1.0); EOS # 0.2 10*3/uL (0.0-0.4); EOS % 1.6 % (1.0-4.0); HEMATOCRIT 39.7 % (37.0-47.0); HEMOGLOBIN 13.3 g/dl (12.0-16.0); LYMPH # 3.9 10*3/uL (1.3-4.4); MEAN CELL VOLUME 91.1 fl (81.0-99.0); MEAN CORPUSCULAR HGB 30.5 pg (27.0-31.0); MEAN CORPUSCULAR HGB CONC 33.5 g/dl (33.0-37.0); MEAN PLATELET VOLUME 8.7 fl (9.6-12.3); MONO # 0.8 10*3/uL (0.1-1.0); MONO % 6.9 % (3.0-9.0); NEUT # 6.4 10*3/uL (2.3-7.9); NEUT % 56.6 % (47.0-73.0); PLATELET COUNT AUTOMATED 461 10*3/uL (130-400); RED BLOOD COUNT 4.36 10*6/uL (4.10-5.10); RED CELL DISTRI WIDTH 13.6 % (0-14.5); WHITE BLOOD COUNT 11.4 10*3/uL (4.8-10.8)
[2018-08-22 09:58] VITALS: BP 128/63
[2018-08-22 10:02] LABS: ACT PARTIAL THROMBO TIME 24.7 SECONDS (20.8-31.5)
[2018-08-22 10:22] LABS: ALBUMIN 3.4 gm/dl (3.1-4.5); ALKALINE PHOSPHATASE 100 U/L (45-117); BUN 19 mg/dl (7-24); CHLORIDE 104 mmol/L (98-107); CREATININE 0.94 mg/dL (0.55-1.02); POTASSIUM 3.5 mmol/L (3.5-5.1); SGOT/AST 5 IU/L (3-35); SGPT/ALT 15 U/L (12-78); SODIUM 139 mmol/L (136-145); TOTAL PROTEIN 6.6 gm/dL (6.4-8.2)
[2018-08-22 11:42] VITALS: BP 104/71
[2018-08-22 11:55] VITALS: BP 113/76
--- NOTE | 2018-08-22 11:55 | NUR ---
A 63, admitted to 5E, under the services of HARISH Clemens MD with a diagnosis of LEFT KNEE INJURY. Chief complaint is PAIN. Patient arrived via bed from ER. Monitor applied. Initial assessment completed. Vital signs taken and recorded. HARISH CLEMENS MD notified of admission to the unit. Orders received. See assessment for past medical history, medications and allergies. Patient and/or family oriented to unit. Clothing/patient valuable form completed. TED OLIVAS
[2018-08-22] MEDS ORDERED: MELOXICAM7.5 MG PO (12:18)
[2018-08-22] MEDS ORDERED: DILTIAZEM 24HR360 MG PO (12:47)
--- NOTE | 2018-08-22 12:50 | NUR ---
AWARE OF PATIENT MEDICATION VERIFIED, STATED TO CONTINUE ALL MEDS. UNABLE TO CONT BUSPAR 15 MG D/T UNAVAIBILITY, PHARM STATES TO PLACE NEW MED ORDER OF 7.5MG 2 TABLETS INSTEAD. OTHER ORDERS IN PLACE PER REQUEST.
--- NOTE | 2018-08-22 12:50 | NUR ---
INFORMED THAT PATIENT ARRIVED TO FLOOR WITH 10/10 PAIN TO LEFT KNEN, AND KNEE DOWN LIMB IS COLD/SWELLED WITH PPP. DILUADID ORDERED PER REQUEST
[2018-08-22] MEDS ORDERED: BUSPIRONE HCL7.5 MG PO (12:56)
--- NOTE | 2018-08-22 13:03 | NUR ---
PATIENT MEDICATED WITH DILAUDID FOR LEFT KNEE PAIN 04/06. WILL MONITOR
--- NOTE | 2018-08-22 14:03 | NUR ---
PATIENT STATED THAT HER PAIN IS MUCH BETTER THAT THE MEDICATION TOOK THE EDGE OFF
--- NOTE | 2018-08-22 14:14 | NUR ---
'S OFFICE CALLED IN REGARDS TO CONSULT. STATED THEY WOULD INFORM HER
--- NOTE | 2018-08-22 15:50 | NUR ---
IN TO SEE PATIENT AT BEDSIDE. STATES OF POSSIBILITY OF MRI TO R/O DVT TO LLLE, STATE OK FOR NOW DOSE OF PROTONIX SINCE PATIENT HAD NO MEDICATIONS THIS AM AND IS C/O GERD.
[2018-08-22 16:00] VITALS: BP 106/60
--- NOTE | 2018-08-22 16:15 | NUR ---
IN TO SEE PATIENT AT BEDSIDE. STATES TO GET CONSTENT FOR BEDSIDE PROCEDURE OF ASPIRATION OF LEFT KNEE, PATIENT GAVE WRITTEN CONSENT. 1MG IV DILAUDID TO BE GIVEN NOW PER ORDERS.
--- NOTE | 2018-08-22 16:36 | NUR ---
AT BEDSIDE. STATES TO PLACE ANOTHER 1MG IV DILAUDID NOW.
--- NOTE | 2018-08-22 17:30 | NUR ---
PATIENT IS STABLE AT THIS TIME AFTER ASPIRATION OF KNEE. LEFT LEG ELEVATED TO HELP DECREASE EDEMA TO LEFT KNEE. WILL CONTINUE TO MONITOR PATIENT.
--- NOTE | 2018-08-22 17:46 | NUR ---
PATIENT MEDICATED WITH X1 DOSE OF ZOFRAN FOR C/O NAUSEA.
--- NOTE | 2018-08-22 18:46 | NUR ---
ZOFRAN EFFECTIVE FOR NAUSEA
[2018-08-22 20:00] VITALS: BP 110/77
--- NOTE | 2018-08-22 21:30 | NUR ---
PT. HAD SMALL EMESIS. GOWN CHANGED. PT. STATED "I FEEL A LITTLE PBETTER RIGHT NOW." DENIES PAIN IN LEFT LEG.
--- NOTE | 2018-08-22 22:00 | NUR ---
BP 112/75 PT REFUSED BP MED (LISINIOPRIL) AND ALSO REFUSED COVERAGE FOR BSG 151.
--- NOTE | 2018-08-22 23:17 | NUR ---
24 HR chart check completed.
[2018-08-23] VITALS (17 sets, daily range): BP systolic 102–125; BP diastolic 54–94
--- NOTE | 2018-08-23 02:00 | NUR ---
SLEEPING NO ACUTE DISTRESS NOTED.
[2018-08-23 06:30] LABS: BASO % 0.3 % (0.0-1.0); EOS # 0.1 10*3/uL (0.0-0.4); EOS % 0.8 % (1.0-4.0); HEMATOCRIT 34.3 % (37.0-47.0); LYMPH # 2.9 10*3/uL (1.3-4.4); LYMPH % 23.8 % (27.0-41.0); MEAN CORPUSCULAR HGB CONC 31.8 g/dl (33.0-37.0); MONO # 0.9 10*3/uL (0.1-1.0); MONO % 7.1 % (3.0-9.0); NEUT # 8.2 10*3/uL (2.3-7.9); NEUT % 67.5 % (47.0-73.0); PLATELET COUNT AUTOMATED 377 10*3/uL (130-400); RED BLOOD COUNT 3.63 10*6/uL (4.10-5.10); WHITE BLOOD COUNT 12.2 10*3/uL (4.8-10.8)
[2018-08-23 06:34] LABS: MEAN CELL VOLUME 94.5 fl (81.0-99.0)
[2018-08-23 06:35] LABS: HEMOGLOBIN 10.9 g/dl (12.0-16.0)
--- NOTE | 2018-08-23 08:00 | NUR ---
VS STABLE, A&OX3, VALECNIA, CAP REFILL <3 SECONDS, POSITIVE PEDAL PULSES, NO EDEMA NOTED AT THIS TIME, LUNGS SOUND CLEAR, HEART SOUNDS NORMAL, ABDOMEN NON TENDER, NON DISTENDED, BSX4, SKIN INTACT, PINK, WARM, AND DRY, DRESSING TO WOUND INTACT, AND DRY, ON 2L OF O2 N/C, NPO SINCE MIDNIGHT DUE TO HAVING SURGERY TODAY, USING THE PAIN SCALE OF 1-10, PATIENT STATES "MY PAIN IS AT A 2." SHAI BREWSTER SPCLEMENTCC
--- NOTE | 2018-08-23 08:15 | NUR ---
PATIENT WAS TRANSPORTED DOWN TO SURGERY VIA CART, CONDITIONS STABLE. SHAI NEELY
--- NOTE | 2018-08-23 09:00 | NUR ---
Packing Machine Pilot Can Router in to see patient. She is currently not in her room. Will follow up at a later time.
--- NOTE | 2018-08-23 10:24 | NUR ---
PATIENT IS STILL IN SURGERY. SHAI BREWSTER SPCC
--- NOTE | 2018-08-23 11:00 | NUR ---
Patient was returned by bed from O.R. Vital signs 97.7, 108, 104/64,14,95%. Level of conciousness: alert and oriented x 3 Skin color: pink, warm & dry Skin temperature: pink, warm & dry, Surgical site: dressing dry and intact Drainage tubes:color SMALL amount HEMOVAC LEFT KNEE, DARK RED DRAINAGE DENIES ALL PAIN AT PRESENT TIME, LUNGS ARE CLEAR, RESPIRATIONS ARE EASY, ABDOMEN SOFT, NON DISTENING, NON TENDER, BSX4, PUPILS ARE EQUAL AND REACTIVE @ 1MM. CAP REFILL <3 SECONDS. NO STRIDOR, NO DIFFICULTY SWALLOWING, VOIDED CLEAR YELLOW URINE. FAMILY AT BED SIDE. WILL CONTINUE TO ASSESS. condition of I.V. site RIGHT ARM INTACT Report received from TED RAMSEY,SHAI SORENSON [facility]
--- NOTE | 2018-08-23 11:05 | NUR ---
PATIENT RETURNED FROM SURGERY. REPORT OBTAINED FROM FERNIE. STATES THAT 150CC OF OLD BLOOD/CLOTTS REMOVED AND 20CC OF FRESH BLOOD REMOVED THROUGHTOUT PROCEDURE. PT BP WERE ON 100/60'S. STATES THERE ARE SUTURS INSIDE INCISION AND SHIKHA OUTSIDE, HEMOVAC IN PLACE AND DRAINING, STATES 10CC OF BLOOD REMOVED PRIOR TO COMING ON FLOOR @1100. PATIENT IS TO HAVE TWO PILLOWS UNDER LEG AND ICE PACKS. SURGICAL INCISION HAS XEROFORM, 4X4 GAUZE AND WALT WRAPS. PATIENT WANTS TO SIT IN BED DURING LUNCH AND WILL TRY TO GET INTO CHAIR AFTER EATING.
--- NOTE | 2018-08-23 11:15 | NUR ---
Patient has just returned from surgical procedure and with the nurse student. OTR will attempt evaluation at a later time. Maricruz Aceves OTR/padmaja
--- NOTE | 2018-08-23 13:16 | NUR ---
PATIENT WAS INSTRUCTED ON INCENTIVE SPIROMETRY. ABLE TO GENERATE 1500ML.
--- NOTE | 2018-08-23 13:30 | NUR ---
Counseling Center Director in to talk to patient. Patient states lives at home with her oldest daughter, youngest son, and 18 yo twins. There are 0 steps in the home. Physician: Dr. Nicol Titus Pharmacy: [facility] health services: none Patient's level of ADLs: INDEPENDENT Patient has working utilities: yes DME: nebulizer Follow-up physician's appointment after d/c: she prefers to make her own follow up appt after discharge Does patient want to access PORTAL?: no Discharge plan discussed with patient. She lives at home with her family. She is independent in her ADLs and ambulation. Discussed home health care services and she denies any home needs at this time. When medically stable she will be discharged to home. JAYE COLIN
--- NOTE | 2018-08-23 13:32 | NUR ---
Occupational Therapy evaluation completed on 5 with full eval to follow. Precautions include LLE WBAT s/p drainage of hematoma left thigh by Dr. Willis today, fall risk, new wheeled walker use, IV UE, surgical drain left thigh, moderate complexity level 44245 via chart review, testing and evaluation. Recommend OT per POC for LB self care,safety with new wheeled walker, and functional mobility and safety education for return home with and family upon d/c. Thank you for this referral. Maricruz Aceves OTR/l
--- NOTE | 2018-08-23 14:00 | NUR ---
PHYSICAL THERAPY PAtient evaluated on , full evaluation to follow. Continue with PT as per plan of care with fall, hematoma LLE s/p I & D 08/23, WBAT LLE and 02 precautions. Home with family assist and home health RN and PT prn. PAtient is moderate complexity via chart review, tests and evaluation: [id number]. Thank you for this referral. Lety Guzman,PT
--- NOTE | 2018-08-23 14:32 | NUR ---
PER POLICY D/T PATIENT BEING UNDER GENERAL ANESTHESIA BR TX HAVE TO BE CANCELLED AND REORDERED. COMPLETED AT THIS TIME FOR ALBUTEROL AND PULMICORT
--- NOTE | 2018-08-23 15:10 | NUR ---
HEMOVAC DRAINAGE REMOVED AT THIS TIME. 10CC OF BRIGHT RED BLOOD OBTAINED. PATIENT VOICED NO COMPLAINTS AT THIS TIME, MANUAL ZF=103/64.
--- NOTE | 2018-08-23 15:33 | NUR ---
Discussed home health care RN/PT and patient is agreeable. When given a list of agencies she chose [facility]. Dr. Titus notified and new orders received.
--- NOTE | 2018-08-23 15:43 | NUR ---
Home health order faxed to [facility]
--- NOTE | 2018-08-23 18:00 | NUR ---
PATIENT MEDICATED WITH DILAUDID FOR C/O LEFT KNEE PAIN 01/04. WILL MONITOR
--- NOTE | 2018-08-23 18:29 | NUR ---
HEMOVAC DRAINED AT THSI TIME 3CC OF BRIGHT RED BLOOD OBTAINED. PATIENT VOICED NO COMPLAINTS. STATES THAT AT THIS TIME, DILAUDID "TOOK THE EDGE OFF MY PAIN". WILL CONTINUE TO MONITOR
--- NOTE | 2018-08-23 20:48 | NUR ---
24 HR chart check completed.
[2018-08-24] VITALS: BP 120/82
--- NOTE | 2018-08-24 02:03 | NUR ---
HEMOVAC EMPTIED FOR TOTAL 21.5 FOR 8 HOURS. PT. UP TO BEDSIDE COMMODE WITH MINIMAL HELP AND BACK TO BED. LEFT LEG ELEVATED DRESSING TO LEFT LEG INTACT WITH HEMOVAC TO SUCTION. PT. TOLERATED MOVING FAIR. HR INCREASED TO 130'S.
--- NOTE | 2018-08-24 06:11 | NUR ---
EMPTIED HEMAVAC FOR 6CC FROM 2AM TO 6AM. PT. UP TO BEDSIDE COMMODE AND VOIDED. C/O PAIN IN LEFT LEG "7" DILAUDID GIVEN PER ORDER FOR PAIN. ICE PACKS AND ELEVATED LEG HAVE CONTINUED THROUGHOUT SHIFT.
[2018-08-24 06:22] LABS: BASO # 0.1 10*3/uL (0.0-0.1); BASO % 0.6 % (0.0-1.0); EOS # 0.2 10*3/uL (0.0-0.4); EOS % 2.3 % (1.0-4.0); HEMATOCRIT 32.3 % (37.0-47.0); LYMPH # 2.4 10*3/uL (1.3-4.4); LYMPH % 22.6 % (27.0-41.0); MEAN CORPUSCULAR HGB 29.4 pg (27.0-31.0); MEAN PLATELET VOLUME 8.8 fl (9.6-12.3); MONO # 0.8 10*3/uL (0.1-1.0); MONO % 7.6 % (3.0-9.0); NEUT # 6.9 10*3/uL (2.3-7.9); NEUT % 66.3 % (47.0-73.0); PLATELET COUNT AUTOMATED 338 10*3/uL (130-400); RED CELL DISTRI WIDTH 13.8 % (0-14.5); WHITE BLOOD COUNT 10.5 10*3/uL (4.8-10.8)
[2018-08-24 08:00] VITALS: BP 100/64; BP 98/72
--- NOTE | 2018-08-24 10:05 | NUR ---
OT NOTE Pt was seen this A.M. 1:1 for 15 minute OT session. Upon arrival pt was supine in bed. Pt identified by name and and had no complaints at this time. At rest supine in bed pt's pain was a 0/10. Pt transferred supine to sit EOB with SBA. Sit to stand completed from bed level with CGA and use of w/w for UE support. Functional mobility completed into the bathroom with SBA and use of w/w, there she transferred on to standard commode with SBA. Clothing management completed with SBA and toilet hygiene completed MD while seated. Pt then stood sink side while washing her hands with SBA. While up on her feet pt reported that her pain was a 2/10 in the L knee. Pt returned to recliner where she was left reclined with call light in hand, tray table in place, and phone in reach. Continue with rec D/C plan to home with home health. RYAN Yang/Soledad
[2018-08-24] MEDS ORDERED: NORCO 5-325 TA1 EACH PO (10:28)
--- NOTE | 2018-08-24 10:40 | NUR ---
IN TO SEE PATIENT AT BEDSIDE. PULLED HEMOVAC DRAIN FROM LLE SURGICAL SITE. STATES TO HAVE AQUALCELL FOR DRESSING LATER IF NEEDED, PATIENT CAN LEAVE LATER THIS EVENING
--- NOTE | 2018-08-24 10:44 | NUR ---
Spoke to David at Dr. Willis's office regarding script for a walker. Awaiting return call
--- NOTE | 2018-08-24 10:46 | NUR ---
David from Dr. Willis returned call. Awaiting fax for jermaine.
--- NOTE | 2018-08-24 10:50 | NUR ---
PHYSICAL THERAPY Patient presented to therapy in supine with head of bed elevated, L LE up on two pillows, and no bed alarm activated. Patient says her pain level is at 0/10 in supine. Patient agrees to therapy session. Patient was identified by name and . Patient performed supine to sitting at EOB with SBA. Patient performed STS transfer with SBA. Patient ambulated with W/W and Close Supervision for 60' x 1 with no LOB, SOB, or other difficulty. Patient's pain level only increased to 2/10 while ambulating. Patient transferred to bedside chair with SBA. Patient was left in bedside chair with LEs elevated, call light within reach, and tray table in front of patient. Patient was 1:1 with this RISK TECH for 15 minutes total. PATIENT HAS WOUND VAC ATTACHED. LIZBETH GIRALDO RISK TECH
--- NOTE | 2018-08-24 11:30 | NUR ---
PATEINT REFUSED ACCUCHEK AT THIS ITME
--- NOTE | 2018-08-24 11:34 | NUR ---
Faxed referral for walker to [facility]. Notified patient.
[2018-08-24 12:00] VITALS: BP 132/80
--- NOTE | 2018-08-24 14:30 | NUR ---
PATIENT VOICED NO COMPLAINTS AT THIS TIME. CALL LIGHT LEFT WITHIN REACH.
--- NOTE | 2018-08-24 15:12 | NUR ---
PHYSICAL THERAPY Patient presented to therapy in supine with head of bed elevated and report of having no significant pain right now in the L Knee. Patient says Dr. Willis came in to remove wound vac from L knee earlier. Patient agrees to therapy treatment. Patient was identified by name rahel KASSANDRA. Patient performed supine to sitting at EOB transfer Independently. Patient performed STS transfer with MOD [place]. Patient ambulated with W/W and Close Supervision for 400' x 1 with no increased pain in the L knee, no LOB, AND NO OTHER DIFFICULTY. Patient was left sitting at EOB with call light within reach. Patient is MOD I to and from the restroom throughout the day. Patient was 1:1 with this DESIGN MAKER for 14 minutes total.
[2018-08-24 16:00] VITALS: BP 116/84
--- NOTE | 2018-08-24 16:03 | NUR ---
PHYSICAL THERAPY CO-SIGN I approve of the Phyical Therapy notes written above. MAGED CLOUD PT
--- NOTE | 2018-08-24 16:30 | NUR ---
DR. BETANCUR IN TO SEE PATIENT, PLACED AQUACEL DRESSIGN TO LEFT KNEE SURGICAL INCISION AND WALT WRAP. INSTRUCTION PROVIDED TO PATIENT. OK'D DISCHARGE.
--- NOTE | 2018-08-24 17:11 | NUR ---
Discharge instructions reviewed with patient. Patient receptive and verbalizes understanding. Follow-up care TO BE arranged BY PATIENT. Written instructions given to patient. IV CATHETER REMOVED AND LEAF STICKER ACCOUNTED FOR AND PLACED IN BIN. TED OLIVAS
--- NOTE | 2018-08-25 10:34 | NUR ---
OCCUPATIONAL THERAPY CO-SIGN I approve of the Occupational Therapy notes written above. BROWN SHI OTR/Soledad
[2018-10-16] MEDS ORDERED: NORCO 5-325 TA1 EACH PO (01:35)
[2018-10-18] MEDS ORDERED: METOPROLOL PO (14:13)
[2018-10-20] MEDS ORDERED: NORCO 5-325 TA1 EACH PO (07:43)
[2018-10-20] MEDS ORDERED: ZOFRAN4 MG PO (07:44)
[2018-10-20] MEDS ORDERED: PERCOCET 5-3251 EACH PO (12:34)
== END 2018-08-24 17:11 | disposition home or self-care (01) | DRG 580 ==
LOC: ED 09:30 → 5E 11:39 → EDHOLD 11:39 → 5E 11:41
PROVIDERS: Emergency Medicine; Family Medicine; Orthopaedic Surgery; ADMIT Internal Medicine
PROC: 0H9JXZX Drainage of Left Upper Leg Skin, External Approach, Diagnostic (ICD-10-PCS; principal; 2018-08-22)
PROC: 0J9M0ZZ Drainage of Left Upper Leg Subcutaneous Tissue and Fascia, Open Approach (ICD-10-PCS; 2018-08-23)
DX: S70.12XA Contusion of left thigh, initial encounter (principal); F33.1 Major depressive disorder, recurrent, moderate; R26.2 Difficulty in walking, not elsewhere classified; I95.1 Orthostatic hypotension; E11.43 Type 2 diabetes mellitus with diabetic autonomic (poly)neuropathy; F17.210 Nicotine dependence, cigarettes, uncomplicated; F41.1 Generalized anxiety disorder; F51.01 Primary insomnia; W01.0XXA Fall on same level from slipping, tripping and stumbling without subsequent striking against object, initial encounter; I10 Essential (primary) hypertension; J44.9 Chronic obstructive pulmonary disease, unspecified; Z88.8 Allergy status to other drugs, medicaments and biological substances; Z88.1 Allergy status to other antibiotic agents; Z91.041 Radiographic dye allergy status; Y93.89 Activity, other specified; Y92.89 Other specified places as the place of occurrence of the external cause; Y99.8 Other external cause status; Z79.899 Other long term (current) drug therapy

== ENCOUNTER → 2018-10-20 | Day surgery (SDC) | payer OTHER ==
[2018-10-18 14:00] VITALS: BP 156/104
[2018-10-18 15:09] LABS: BASO # 0.1 10*3/uL (0.0-0.1); BASO % 0.8 % (0.0-1.0); EOS # 0.4 10*3/uL (0.0-0.4); EOS % 5.5 % (1.0-4.0); HEMATOCRIT 36.5 % (37.0-47.0); HEMOGLOBIN 11.5 g/dl (12.0-16.0); LYMPH # 2.2 10*3/uL (1.3-4.4); LYMPH % 29.9 % (27.0-41.0); MEAN CELL VOLUME 90.8 fl (81.0-99.0); MEAN CORPUSCULAR HGB 28.6 pg (27.0-31.0); MEAN CORPUSCULAR HGB CONC 31.5 g/dl (33.0-37.0); MONO # 0.6 10*3/uL (0.1-1.0); MONO % 8.2 % (3.0-9.0); NEUT # 4.1 10*3/uL (2.3-7.9); NEUT % 55.3 % (47.0-73.0); PLATELET COUNT AUTOMATED 317 10*3/uL (130-400); RED BLOOD COUNT 4.02 10*6/uL (4.10-5.10); RED CELL DISTRI WIDTH 13.3 % (0-14.5); WHITE BLOOD COUNT 7.5 10*3/uL (4.8-10.8)
[2018-10-18 15:19] LABS: BUN 11 mg/dl (7-24); CHLORIDE 109 mmol/L (98-107); POTASSIUM 3.4 mmol/L (3.5-5.1); SODIUM 142 mmol/L (136-145)
[2018-10-18 15:48] LABS: BILIRUBIN NEGATIVE (NEGATIVE); BLOOD NEGATIVE (NEGATIVE); CLARITY CLEAR (CLEAR); COLOR YELLOW (YELLOW); GLUCOSE NEGATIVE (NEGATIVE); KETONE NEGATIVE (NEGATIVE); LEUKO ESTERASE NEGATIVE (NEGATIVE); NITRITE NEGATIVE (NEGATIVE); SPECIFIC GRAVITY <= 1.005 (1.005-1.030); UROBILINOGEN 0.2 E.U./dl (0.2-1.0)
[2018-10-18 16:12] LABS: BACTERIA 2+; EPITHELIAL CELLS 16-20
[2018-10-20] VITALS (7 sets, daily range): BP systolic 139–159; BP diastolic 82–98
[~2018-10-20] VITALS: Ht 162.5 cm; Wt 86.2 kg
[~2018-10-20] MED LIST changes: +ALENDRONATE SOD70 M1 PO; +AMITRIPTYLINE25 MG PO; +BUSPIRONE HCL7.5 MG PO; +DILTIAZEM 24HR360 MG PO; +MELOXICAM7.5 MG PO; +METOPROLOL PO; +NORCO 5-325 TA1 EACH PO; +OXYGEN NAS; +PERCOCET 5-3251 EACH PO
--- NOTE | ~2018-10-20 | EKG ---
[place], [place] ELECTROCARDIOGRAM REPORT NAME: GLORIA CHIN UNIT #: [id number] ROOM: DOCTOR: EPIPHANY DRAFT REPORT BIRTHDATE: [birth year] [facility] Test Date: 2018-10-18 Test Time: 14:59:09 Pat Name: GLORIA CHIN Department: Room: Gender: F Glass Finisher: Ruby Harmon : 1955 Requested By: GERARDO BETANCUR Order Number: [id number] Reading MD: Hiren Conrad MD Measurements Intervals [place] Rate: 74 P: 37 [place]: 192 QRS: 38 QRSD: 96 T: 38 QT: 437 QTc: 485 Interpretive Statements Sinus rhythm Compared to ECG 08/22/2018 18:26:29 T-wave abnormality no longer present Electronically Signed On 10-19-2018 16:02:41 PDT by Hiren Conrad MD CM:EKGRPT:ELECTROCARDIOGRAM REPORT [id number] GERARDO HARRY DRAFT REPORT GERARDO BETANCUR DO
== END | disposition home or self-care (01) ==
LOC: SDC 10-18 14:00
PROVIDERS: Orthopaedic Surgery
DX: S52.572A Other intraarticular fracture of lower end of left radius, initial encounter for closed fracture (principal); X58.XXXA Exposure to other specified factors, initial encounter; Y93.89 Activity, other specified; Y92.89 Other specified places as the place of occurrence of the external cause; Y99.8 Other external cause status; I10 Essential (primary) hypertension; E03.9 Hypothyroidism, unspecified; F41.9 Anxiety disorder, unspecified; F32.9 Major depressive disorder, single episode, unspecified; J44.9 Chronic obstructive pulmonary disease, unspecified; E11.9 Type 2 diabetes mellitus without complications; K21.9 Gastro-esophageal reflux disease without esophagitis; F17.210 Nicotine dependence, cigarettes, uncomplicated; M19.90 Unspecified osteoarthritis, unspecified site; Z88.5 Allergy status to narcotic agent; Z88.8 Allergy status to other drugs, medicaments and biological substances; Z88.1 Allergy status to other antibiotic agents; Z88.3 Allergy status to other anti-infective agents; Z91.041 Radiographic dye allergy status; Z90.49 Acquired absence of other specified parts of digestive tract; Z98.890 Other specified postprocedural states; Z79.899 Other long term (current) drug therapy; Z87.01 Personal history of pneumonia (recurrent); Z90.710 Acquired absence of both cervix and uterus; Z87.440 Personal history of urinary (tract) infections; Z82.49 Family history of ischemic heart disease and other diseases of the circulatory system; Z82.3 Family history of stroke; Z83.3 Family history of diabetes mellitus

== ENCOUNTER → 2018-10-26 | Outpatient (CLI) | payer OTHER | END | disposition home or self-care (01) | LOC: RAD 10:40 | DX: Z13.820 Encounter for screening for osteoporosis (principal); N95.9 Unspecified menopausal and perimenopausal disorder; R29.890 Loss of height; Z90.710 Acquired absence of both cervix and uterus ==

== ENCOUNTER 2018-11-06 12:36 | Inpatient (IN) | payer OTHER ==
[2018-11-06] VITALS (7 sets, daily range): BP systolic 126–175; BP diastolic 84–112
[~2018-11-06] VITALS: Ht 162.5 cm; Wt 73.6 kg
--- NOTE | ~2018-11-06 | DS ---
[place], [place] DISCHARGE SUMMARY NAME: GLORIA CHIN UNIT #: [id number] ROOM: 404 DOCTOR: CAT PHILLIPS MD BIRTHDATE: [birth year] DOS: 11/11/2018 DISCHARGE DIAGNOSES: 1. Acute exacerbation of chronic obstructive pulmonary disease. 2. Chronic respiratory failure from chronic obstructive pulmonary disease and the patient qualified for oxygen at home. 3. Benign essential hypertension. 4. Gastroesophageal reflux disease and esophagitis. 5. Orthostatic hypotension. 6. Autonomic neuropathy. 7. Nicotine smoke dependence. 8. Type 2 diabetes mellitus. 9. Major depression, recurrent, moderate. 10. Generalized anxiety disorder. 11. Chronic primary insomnia. HOSPITAL COURSE: The patient was admitted with shortness of breath, acute over chronic respiratory failure and acute exacerbation of COPD. The patient was treated with corticosteroids, oxygen, antibiotic and her breathing has improved enough that she can be discharged to home. The patient continues to smoke cigarettes and she wants to stop now. Chronic respiratory failure. The patient is qualified for home oxygen because she dropped to 86% pulse ox on room air with ambulation. The patient to use 2 liters of oxygen by nasal cannula at home continuous. Type 2 diabetes mellitus. Blood sugars were monitored and treated. Benign essential hypertension. Blood pressure was treated and controlled. The patient is on metoprolol and lisinopril. GERD and esophagitis, asymptomatic with Protonix. Generalized anxiety disorder, being treated with BuSpar, hydroxyzine and amitriptyline, which were continued. LABORATORY DATA: Negative cardiac enzymes. Blood cultures were negative. DISCHARGE MANAGEMENT: Medrol Dosepak, Tylenol p.r.n., DuoNeb every 4 hours, Pulmicort 0.5 mg b.i.d., Protonix 40 mg a day, metoprolol 50 mg b.i.d., metformin 500 mg daily, lisinopril 20 mg b.i.d., levothyroxine 50 mcg daily, hydroxyzine 50 mg every 6 hours p.r.n. for anxiety. FOLLOWUP: With Dr. Nicol Titus in her office within 7 days. [place], [place] DISCHARGE SUMMARY NAME: GLORIA CHIN UNIT #: [id number] ROOM: 404 DOCTOR: CAT PHILLIPS MD BIRTHDATE: [birth year] CAT PHILLIPS MD CM:WESLY 25 CAT PHILLIPS MD 11/11/182125 interface
--- NOTE | ~2018-11-06 | PR ---
[place], [place] PROGRESS NOTE NAME: GLORIA CHIN [facility] #: [id number] UNIT #: [id number] ROOM: 404 DOCTOR: CAT PHILLIPS MD BIRTHDATE: [birth year] DOS: 11/08/2018 SUBJECTIVE: The patient is still with shortness of breath and significant dyspnea on exertion. OBJECTIVE: GENERAL APPEARANCE: The patient is alert and oriented x 3, in no visible distress. VITAL SIGNS: Blood pressure 146/86, heart rate 77 beats per minute, breathing 18 times per minute, temperature 98.2 degrees Fahrenheit. HEENT AND NECK: Exam within normal limits. CARDIOVASCULAR SYSTEM: Heart rate is regular in rate and rhythm. S1 and S2 normally audible. LUNGS: Decreased breath sounds on lung auscultation and expiratory wheezing with generalized weakness. ABDOMEN: Soft, nontender. No obvious organomegaly. Bowel sounds are present. EXTREMITIES: Without significant cyanosis or edema. IMPRESSION: 1. Acute exacerbation of chronic obstructive pulmonary disease with hypoxemia and severe dyspnea on exertion, to be started on physical therapy. She was kept on corticosteroids, oxygen, antibiotics, and being monitored closely. 2. Generalized anxiety disorder, treated with buspirone and hydroxyzine. The patient also takes amitriptyline. 3. Benign essential hypertension, treated and controlled. The patient is on metoprolol and lisinopril. 4. Type 2 diabetes mellitus. The patient is on lisinopril. Blood sugars are monitored and treated. 5. Gastroesophageal reflux disease and esophagitis, asymptomatic with Protonix. CAT PHILLIPS MD CM:PNTRANS [id number] CAT PHILLIPS MD 11/08/18 1715 interface
--- NOTE | ~2018-11-06 | PR ---
[place], [place] PROGRESS NOTE NAME: GLORIA CHIN [facility] #: [id number] UNIT #: [id number] ROOM: 404 DOCTOR: CAT PHILLIPS MD BIRTHDATE: [birth year] DOS: 11/07/2018 SUBJECTIVE: The patient's breathing is improving, although she is still short of breath and wheezing. OBJECTIVE: VITAL SIGNS: Blood pressure 131/84, heart rate 87 beats per minute, breathing 18 times per minute, temperature 98 degrees Fahrenheit. GENERAL APPEARANCE: The patient is alert and oriented x 3, in no visible distress. HEENT AND NECK: Exam within normal limits. CARDIOVASCULAR SYSTEM: Heart rate is regular in rate and rhythm. S1 and S2 normally audible. LUNGS: Decreased breath sounds and expiratory wheezing in the lungs all over. ABDOMEN: Soft, nontender. No obvious organomegaly. Bowel sounds are present. EXTREMITIES: Without significant cyanosis or edema. IMPRESSION: 1. Acute exacerbation of chronic obstructive pulmonary disease, improving with treatment with corticosteroids, oxygen, antibiotics and being followed closely on a site monitor. 2. Generalized anxiety disorder. Patient treated with buspirone, hydroxyzine, amitriptyline. 3. Benign essential hypertension, treated and controlled. The patient remains on lisinopril and metoprolol. Blood pressures are better controlled. 4. Type 2 diabetes mellitus. Blood sugars being monitored and treated. 5. Gastroesophageal reflux disease and esophagitis, asymptomatic with Protonix. CAT PHILLIPS MD CM:PNTRANS [id number] 5 CAT PHILLIPS MD 11/08/18215 interface
--- NOTE | ~2018-11-06 | PR ---
[place], [place] PROGRESS NOTE NAME: GLORIA CHIN [facility] #: [id number] UNIT #: [id number] ROOM: 404 DOCTOR: CAT PHILLIPS MD BIRTHDATE: [birth year] DOS: 11/09/2018 SUBJECTIVE: The patient's breathing is improving slowly. OBJECTIVE: VITAL SIGNS: Blood pressure 138/88, heart rate of 85 beats per minute, breathing 18 times per minute, temperature 98 degrees Fahrenheit. GENERAL APPEARANCE: The patient is alert and oriented x 3, in no visible distress. HEENT AND NECK: Exam within normal limits. CARDIOVASCULAR SYSTEM: Heart rate is regular in rate and rhythm. S1 and S2 normally audible. LUNGS: Expiratory wheezing, which is improving. ABDOMEN: Soft, nontender. No obvious organomegaly. Bowel sounds are present. EXTREMITIES: Without significant cyanosis or edema. IMPRESSION AND PLAN: 1. The patient with acute exacerbation of chronic obstructive pulmonary disease with slow improvement of symptoms with corticosteroids, oxygen, antibiotics. Sputum cultures have been negative so far. I will continue treatment and consult Dr. Layne. 2. Significant dyspnea on exertion from physical deconditioning and advanced chronic obstructive pulmonary disease and continued nicotine smoke dependence. The patient is working with Physical Therapy. 3. Benign essential hypertension, treated and controlled. The patient on lisinopril and metoprolol. 4. Gastroesophageal reflux disease and esophagitis, asymptomatic with Protonix. CAT PHILLIPS MD CM:PNTRANS [phone] CAT PHILLIPS MD 11/09/18 1635 interface
--- NOTE | ~2018-11-06 | WRIGHTHP ---
[place], [place] PATIENT HISTORY AND PHYSICAL EXAM NAME: GLORIA CHIN [facility] #: [id number] UNIT #: [id number] ROOM: 404 DOCTOR: CAT PHILLIPS MD BIRTHDATE: [birth year] DOS: 11/06/2018 HISTORY OF PRESENT ILLNESS: The patient is a 63-year-old female with a past medical history of: 1. Benign essential hypertension. 2. Orthostatic hypotension from autonomic neuropathy. 3. COPD. 4. Nicotine smoke dependence. 5. Type 2 diabetes mellitus. 6. Major depression, recurrent, moderate. 7. Generalized anxiety disorder. 8. Primary insomnia. The patient presented to the Emergency Department at [facility] with increasing complaints of shortness of breath for about wheezing and chest congestion. The patient was diagnosed as having acute exacerbation of COPD and recommended for admission and further management. After admission, the patient is still short of breath and wheezing. No dizziness or fainting episodes. No other GI or urinary symptoms. REVIEW OF SYSTEMS: RESPIRATORY: Increasing shortness of breath. LUNGS: Chest congestion and wheezing. GASTROINTESTINAL: No nausea, vomiting, diarrhea or constipation. CARDIOVASCULAR: No chest pains or palpitations. FAMILY HISTORY: Noncontributory. HOME MEDICATIONS: Amitriptyline, Protonix, metoprolol, metformin, lisinopril, levothyroxine, hydroxyzine. ALLERGIES: Known allergies to IODINE, QUINOLONES, MEPERIDINE. PHYSICAL EXAMINATION: GENERAL APPEARANCE: Alert, oriented x 3, in no visible distress. VITAL SIGNS: Blood pressure 160/100, heart rate of 90 beats per minute, breathing 20 times per minute, temperature 99.3 degrees Fahrenheit. HEENT AND NECK: Extraocular movements are intact. Sclerae are anicteric. Oral mucosa is moist and clean. No obvious facial weakness. Neck is supple without any lymphadenopathy. No thyromegaly. No JVD. No carotid arterial bruits. LUNGS: Decreased breath sounds on lung auscultation and expiratory wheezing all over. CARDIOVASCULAR SYSTEM: Heart rate is regular in rate and rhythm. S1 and S2 normally audible. No significant murmur or any other abnormal cardiac sounds. ABDOMEN: Soft, nontender. No obvious organomegaly. Bowel sounds are present. No obvious herniation. EXTREMITIES: Without significant cyanosis or edema. Warm to touch. CENTRAL NERVOUS SYSTEM: Alert and oriented x 3. Cranial nerves II-XII are intact. Speech is normal. The patient is able to move all extremities. Normal muscle strength. Deep tendon reflexes are equal on both sides. Plantars were [place], [place] PATIENT HISTORY AND PHYSICAL EXAM NAME: GLORIA CHIN [facility] #: [id number] UNIT #: [id number] ROOM: [facility] DOCTOR: CAT PHILLIPS MD BIRTHDATE: [birth year] downgoing. LABORATORY DATA: Negative cardiac enzymes. IMPRESSION: 1. The patient with acute exacerbation of severe underlying chronic obstructive pulmonary disease with wheezing, chest congestion and cough to be treated with corticosteroids, oxygen, nebulizer treatments, antibiotic and followed closely on a monitored bed. 2. Generalized anxiety disorder. The patient on BuSpar, hydroxyzine, amitriptyline all continued. 3. Benign essential hypertension. The patient remains on metoprolol and lisinopril were both continued. 4. Type 2 diabetes mellitus. The patient continued on metformin. Blood sugars to be monitored and treated. 5. Gastroesophageal reflux disease/ 6. Esophagitis. Asymptomatic with Protonix. CAT PHILLIPS MD CM:HISPHYS:PATIENT HISTORY AND PHYSICAL EXAMINATION [phone] CAT PHILLIPS MD 11/06/182209 interface
--- NOTE | ~2018-11-06 | CON ---
[place], [place] REPORT OF CONSULTATION NAME: GLORIA CHIN [facility] #: [id number] UNIT #: [id number] ROOM: 404 DOCTOR: TMO VEGA MDREENTTA BIRTHDATE: [birth year] DOS: 11/10/2018 PULMONARY CONSULTATION, EVALUATION AND MANAGEMENT CONSULTATION REQUESTED BY: Adonis Soto M.D. REASON FOR CONSULTATION: For assessment of COPD. The patient is independently seen and examined in [id number] encounter, history was confirmed, physical examination performed, labs were reviewed. The note done by the medical billing supervisor was approved. HISTORY OF PRESENT ILLNESS: This is a 63-year-old white female patient who has been known to me from the past. She has been admitted to the hospital under the care of Dr. Soto on 11/06/2018. She presented to the hospital as the patient was complaining of gradual increase in respiratory symptoms, shortness of breath with significant chest congestion and cough. She has been complaining of no sputum expectoration or chest congestion initially. Later on, the patient noted a scant amount of sputum expectoration. She denies symptoms of hemoptysis or any chest pain or chest tightness. With current medical management since admission, the patient has reported reduction of the respiratory symptoms in the last 24 hours with use of corticosteroids, bronchodilators, and other medical management. REVIEW OF SYSTEMS: CONSTITUTIONAL SYMPTOMS: Fatigue and tiredness noted. Denies any symptoms of fever or chills. EYES: Denies any burning, redness or tenderness. EARS, NOSE, THROAT SYMPTOMS: Denies sore throat, hoarseness, otalgia, postnasal drainage, or epistaxis. CARDIOVASCULAR SYSTEM: Denies anginal pain, edema or pain of the lower extremity. GASTROINTESTINAL SYMPTOMS: Denies dysphagia, nausea, vomiting, diarrhea, abdominal pain, hematemesis, melena, or hematochezia. SKIN: Denies abnormal lesions or rashes. CENTRAL NERVOUS SYSTEM: Noted without any dizziness, headache, or diplopia. MUSCULOSKELETAL: Recent left distal radial fracture, which has been treated with ORIF by Dr. Willis on 10/20/2018, currently has a cast in place. PAST MEDICAL HISTORY: 1. Known history of COPD. 2. Type 2 diabetes mellitus. 3. Chronic nicotine dependence. 4. Pulmonary nodule, thoracotomy and right lower lobectomy. 5. Peptic ulcer disease. 6. Type 2 diabetes mellitus. 7. Hypothyroidism. PAST SURGICAL HISTORY: 1. D and C. [place], [place] REPORT OF CONSULTATION NAME: GLORIA CHIN [facility] #: [id number] UNIT #: [id number] ROOM: [facility] DOCTOR: RENETTA RAO MD BIRTHDATE: [birth year] 2. Polypectomy. 3. T and A. 4. Right knee arthroscopy. 5. Complete hysterectomy. 6. Right lower lobectomy for pulmonary nodule. 7. Lumbar laminectomy. 8. Appendectomy. 9. Cholecystectomy. 10. Therapeutic bronchoscopy in 2017. 11. ORIF of the left distal radius fracture in 09/2018. SOCIAL HISTORY: The patient lives at home. Smoking a pack of cigarettes per day to a half-a-pack of cigarettes per day intermittently. Denies any history of alcohol use or any illicit drug use. The patient is and has 3 children. FAMILY HISTORY: Father with history of COPD. Mother with history of COPD, diabetes mellitus. MEDICATIONS: Which were currently administered today actively were Mucinex, calcium carbonate, Solu-Medrol 60 mg IV b.i.d. started yesterday by the medical billing supervisor with my team Dr. Crowder, amitriptyline, Pulmicort Respules, metoprolol tartrate, metformin hydrochloride, lisinopril, levothyroxine, DuoNeb q. 4 hours, and Zithromax added to the treatment yesterday; the patient was receiving previously IV Rocephin. DRUG ALLERGIES: NOTED : 1. IVP DYE. 2. CIPROFLOXACIN. 3. MEPERIDINE. PHYSICAL EXAMINATION: GENERAL: This is a 63-year-old female patient, currently noted to be awake and alert, without any distress. Height of 5 feet 4 inches, weight of 162 pounds, BMI 27. VITAL SIGNS: Normal temperature since admission, respiratory rate 18-20, heart rate 87-95, blood pressure 140/98-150/100. Pulse oxygen saturation recorded at rest on room air as 92% saturation. HEENT: Examination shows head is atraumatic. Eyes nonicterus. NECK: Supple. CARDIOVASCULAR: S1 and S2 audible. LUNGS: Noted with fehg-fo-ghlggrze expiratory wheezing, without any crackles. ABDOMEN: Soft, nontender. Bowel sounds present. EXTREMITIES: Noted with a cast of the left forearm and wrist, otherwise noted as normal examination. CENTRAL NERVOUS SYSTEM: Cranial nerves 2 through 12 intact. VISIBLE SKIN: No lesions or rashes. LABORATORY DATA: CMP that was done on admission on 11/06/2018: Normal BUN and creatinine, glucose 123, other electrolytes normal. ProBNP is 2417. PT/PTT on [place], [place] REPORT OF CONSULTATION NAME: GLORIA CHIN UNIT #: [id number] ROOM: [facility] DOCTOR: RENETTA RAO MD BIRTHDATE: [birth year] admission was normal. Lactic acid was 1.2 on 11/06/2018 on admission as well. Troponins of 3 sets on 11/06/2018 were normal. MICROBIOLOGY: Blood cultures were also noted as normal from admission on 11/06/2018. The sputum culture, normal dirk. DIAGNOSTIC DATA: Chest x-ray, 1 view, which was done in the Emergency Room was reviewed and finding was noted clear of any acute pulmonary infiltration, previous volume loss secondary to surgery of the right lower lobe and lobectomy. IMPRESSION: The patient who has been currently admitted to the hospital noted with: 1. Acute exacerbation of chronic obstructive pulmonary disease with acute bronchitis, responded to treatment with current use of corticosteroids with use of bronchodilators and oxygen supplementation. 2. History of chronic nicotine dependence as well was known. 3. Multiple other medical problems as noted in the past history. PLAN OF TREATMENT: I agree with current dose of corticosteroids and will be continued for 24 hours, assess the patient for possible home discharge on oral medication conversion and tapering prednisone, and antibiotic will be recommended. Counseling about tobacco cessation was made. Other therapy plan of management, additional treatment changes will be made based on progression of the illness. Usual care, other supportive plan of treatment and therapies. Thank you for allowing me to participate in the care of this patient. RENETTA SANTOS MD CM:CONSTR:REPORT OF CONSULTATION 1938 12/30/18 1009 interface
--- NOTE | ~2018-11-06 | EKG ---
[place], [place] ELECTROCARDIOGRAM REPORT NAME: GLORIA CHIN UNIT #: [id number] ROOM: 404 DOCTOR: IVAN DRAFT REPORT BIRTHDATE: [birth year] [facility] Test Date: 2018-11-06 Test Time: 12:43:13 Pat Name: GLORIA CHIN Department: Room: 404 Gender: F Critical Care Nurse Specialist: Gail Lynn : 1955 Requested By: ZEKE REYNOSO Order Number: [id number] Reading MD: Hiren Conrad MD Measurements Intervals [place] Rate: 94 P: 42 [place]: 178 QRS: 27 QRSD: 82 T: 37 QT: 380 QTc: 476 Interpretive Statements Sinus rhythm Abnormal R-wave progression, early transition Compared to ECG 10/18/2018 14:59:09 No significant changes Electronically Signed On 11-07-2018 14:44:32 PDT by Hiren Conrad MD CM:EKGRPT:ELECTROCARDIOGRAM REPORT 1243 1444 ZEKE LOVE DRAFT REPORT ZEKE REYNOSO MD
--- NOTE | ~2018-11-06 | EKG ---
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
--- NOTE | ~2018-11-06 | PR ---
[place], [place] PROGRESS NOTE NAME: GLORIA CHIN [facility] #: [id number] UNIT #: [id number] ROOM: 404 DOCTOR: TOM VEGA MD,RENETTA BIRTHDATE: [birth year] DOS: 11/11/2018 SUBJECTIVE: The patient independently seen and examined, muqy-av-sdta encounter, history was confirmed. Physical examination performed. Labs were reviewed. Assessment of today note, I personally made and the management change necessary was made as well. Note done by the medical bill processor was approved. The patient was noted comfortable at this time, resting with continued gradual reduction and improvement in respiratory symptoms were noted. The patient denies symptoms of fever or chills or hemoptysis. Assess for this patient for home O2. OBJECTIVE: VITAL SIGNS: Normal temperature, respiratory rate 18, heart rate 74, blood pressure 130/80. The pulse oxygen saturation recorded as 93% saturation on room air. HEENT: Examination shows head was atraumatic. Eyes nonicterus. NECK: Supple. CARDIOVASCULAR: S1, S2 audible. LUNGS: Without any wheezing or crackles. ABDOMEN: Soft, nontender, bowel sounds present. EXTREMITIES: No new change. IMPRESSION: The patient with gradually progressive, resolving acute exacerbation of chronic obstructive pulmonary disease, acute bronchitis, and respiratory failure. PLAN OF TREATMENT: No change from the pulmonary standpoint. Continue the patient's current therapy, plan of management as previously. Outpatient assessment if the patient wanted, could be established in the office for further care. RENETTA SANTOS MD CM:PNTRANS 1321 0148 RENETTA VEGA MD 11/12/18 0148 interface
--- NOTE | ~2018-11-06 | CON ---
[place], [place] REPORT OF CONSULTATION NAME: GLORIA CHIN [facility] #: [id number] UNIT #: [id number] ROOM: 404 DOCTOR: JUAN F CROWDER DO BIRTHDATE: [birth year] DOS: 11/10/2018 PULMONARY CONSULTATION EVALUATION AND MANAGEMENT Consultation was ordered by Dr. Orellana. REASON FOR CONSULTATION: Acute exacerbation of COPD. HISTORY OF PRESENT ILLNESS: This is a 63-year-old female admitted to the hospital on 11/06/2018 with complaints of COPD exacerbation. The patient at that time was given steroids, azithromycin, and ceftriaxone in the ED. The patient states that she just could not catch her breath. She was unable to walk about 10 feet before becoming extremely dyspneic. The patient states that she would not be able to walk around her house without taking frequent breaks. The patient states she was not even able to perform her ADLs. The patient was admitted to the hospital for further evaluation. The patient states that since she has been admitted, she has gotten only marginally better. The patient states that she is still very short of breath when up out of bed. The patient states that she is requiring oxygen at times, especially at night. The patient states that she does not use oxygen at home. The patient is a current smoker. The patient states that she would like to try to quit because she does not want to have further respiratory problems. REVIEW OF SYSTEMS: CONSTITUTIONAL SYMPTOMS: Overall, the patient is fatigued. The patient denies fevers or chills. EYES: Denies any burning, redness, or tenderness. ENT: No sore throat, hoarseness, ear pain, postnasal drainage, or nosebleeds. CARDIOVASCULAR: No chest pain. EXTREMITIES: No edema in the lower extremities, CHEST: Shortness of breath, dyspnea on exertion, wheeze, productive cough. GI: No dysphagia, nausea, vomiting, diarrhea, abdominal pain, hematemesis, melena, or hematochezia. SKIN: Denies any lesions or rashes. CENTRAL NERVOUS SYSTEM: No focal neurological deficits reported by the patient. No double vision, no syncopal episodes. No dizziness. Remaining systems reviewed, all noted to be negative. PAST MEDICAL HISTORY: 1. COPD. 2. History of a pulmonary nodule with thoracotomy with right lower lobe lobectomy. 3. Peptic ulcer disease. 4. Obesity. 5. Type 2 diabetes mellitus. 6. Hypothyroidism. PAST SURGICAL HISTORY: 1. Right lower lobe lobectomy. [place], [place] REPORT OF CONSULTATION NAME: GLORIA CHIN [facility] #: [id number] UNIT #: [id number] ROOM: [facility] DOCTOR: JUAN F CROWDER DO BIRTHDATE: [birth year] 2. Complete hysterectomy. 3. Bilateral knee surgeries. 4. Patella repair. 5. Distal radius repair of left upper extremity. 6. Lumbar laminectomy. 7. Appendectomy. 8. Cholecystectomy. FAMILY HISTORY: The patient's mother is still alive at the age of 84. She has a history of diabetes and essential hypertension. The patient's father is 88 years old, still alive. He has a history of diabetes, essential hypertension, and COPD. ALLERGIES: THE PATIENT IS ALLERGIC TO CIPRO, MEPERIDINE, AND IVP DYE. PHYSICAL EXAMINATION: GENERAL: This is a 63-year-old female, lying in bed, in no acute distress. VITAL SIGNS: Temperature 97.3, pulse rate 97, respiratory rate 18, blood pressure is 140/98, and pulse oximetry is 93% on room air. HEENT: Atraumatic. Eyes nonicteric. NECK: Supple, nontender, trachea midline. HEART: S1, S2 audible. Regular rate and rhythm. LUNGS: Diffuse expiratory wheezes bilaterally. ABDOMEN: Soft, nontender, bowel sounds present. EXTREMITIES: No edema, clubbing, or cyanosis. The patient has a cast on her left wrist, status post surgery with Dr. Willis. CENTRAL NERVOUS SYSTEM: No focal neurologic deficits. Cranial nerves 2-12 grossly intact. MUSCULOSKELETAL: No deformities. SKIN: No lesions or rashes. LABORATORY DATA: From 11/06/2018 when the patient was admitted. CBC: White blood cells 6.7, hemoglobin 12.6, hematocrit 38.6, platelets 410. Chemistries are also from the 11/06/2018, sodium is 142, potassium 3.4, chloride 108, carbon dioxide 26, BUN 5, creatinine 0.74, glucose 123, calcium is 8.6, magnesium 1.9, total bilirubin 0.3, AST 7, ALT 12, alkaline phosphatase 138. Troponin negative. Total protein 6.3, albumin 3.3. BNP noted to be 2417. IMAGING: Imaging performed from 11/06/2018 as well as the chest x-ray that showed normal chest evaluation, clear lungs, chest is stable in overall 3 weeks. IMPRESSION: 1. Acute exacerbation of chronic obstructive pulmonary disease. 2. Acute interstitial pneumonitis. 3. Tobacco abuse. 4. History of benign lung nodule with lobectomy. 5. Hypothyroidism. 6. Diabetes type 2. 7. Morbid obesity. 8. Osteoporosis. [place], [place] REPORT OF CONSULTATION NAME: GLORIA CHIN [facility] #: [id number] UNIT #: [id number] ROOM: [facility] DOCTOR: JUAN F CROWDER DO BIRTHDATE: [birth year] PLAN AND MANAGEMENT: The patient was started on Solu-Medrol 60 mg b.i.d., azithromycin 500 mg and Mucinex 1200 mg b.i.d. The patient will be continued on ceftriaxone. The patient states that she does feel better since the medications were started. The patient is not oxygen dependent at home. We will consider assessing for home O2 before discharge. Any changes will be based on progression in illness. Thanks for the consultation. Cem Crowder DO RENETTA SANTOS MD CM:CONSTR:REPORT OF CONSULTATION 1142 11/11/18 0100 interface
--- NOTE | ~2018-11-06 | PR ---
[place], [place] PROGRESS NOTE NAME: GLORIA CHIN [facility] #: [id number] UNIT #: [id number] ROOM: 404 DOCTOR: CAT PHILLIPS MD BIRTHDATE: [birth year] DOS: 11/10/2018 SUBJECTIVE: The patient is breathing slightly improved today as compared to yesterday. OBJECTIVE: GENERAL APPEARANCE: The patient is alert and oriented x 3, in no visible distress. VITAL SIGNS: Blood pressure 140/98, heart rate of 97 beats per minute, breathing 18-20 times per minute, temperature 98.9 degrees Fahrenheit. HEENT AND NECK: Exam within normal limits. CARDIOVASCULAR SYSTEM: Heart rate is regular in rate and rhythm. S1 and S2 normally audible. LUNGS: Decreased breath sounds on lung auscultation and slight expiratory wheezing. ABDOMEN: Soft, nontender. No obvious organomegaly. Bowel sounds are present. EXTREMITIES: Without significant cyanosis or edema. IMPRESSION: 1. The patient with acute exacerbation of chronic obstructive pulmonary disease, being treated with oxygen, antibiotics, corticosteroids and breathing is improving. The patient is being followed by Dr. Layne who was asked to stay for one more day at the hospital. 2. Significant dyspnea on exertion and physical deconditioning. The patient is now working with physical therapy and ambulating in the hallways. Breathing is improving. 3. Benign essential hypertension. Blood pressure is being monitored and controlled. The patient is on metoprolol and lisinopril. 4. Gastroesophageal reflux disease and esophagitis, asymptomatic with Protonix. CAT PHILLIPS MD CM:PNTRANS [id number] CAT PHILLIPS MD 11/10/18 1444 interface
--- NOTE | ~2018-11-06 | PR ---
[place], [place] PROGRESS NOTE NAME: GLORIA CHIN [facility] #: [id number] UNIT #: [id number] ROOM: 404 DOCTOR: DAVE ZANDRAGIL BIRTHDATE: [birth year] DOS: 11/11/2018 PULMONARY PROGRESS NOTE SUBJECTIVE: The patient is a 63-year-old female seen and examined today at bedside. The patient states that she feels much better today. The patient states that she thinks she is ready to go home. The patient states that she did require some oxygen at night, but she states that she is able to walk around the room much easier without oxygen. The patient states she plans on quitting smoking when she goes home. OBJECTIVE: VITAL SIGNS: Temperature 97.6, pulse rate 74, respiratory rate 18, blood pressure is 130/80. The patient was 91% on room air. GENERAL: Alert to me. HEENT: Head is atraumatic. Eyes nonicteric. NECK: Supple, nontender, trachea midline. HEART: S1, S2 audible, regular rate and rhythm. LUNGS: Diffuse expiratory wheezes bilaterally, much improved since the day before. ABDOMEN: Soft, nontender. Bowel sounds present. EXTREMITIES: No clubbing, edema or cyanosis. The patient has a cast on her left wrist, status post surgery with Dr. Willis. CENTRAL NERVOUS SYSTEM: No focal neurologic deficits. Cranial nerves 2-12 grossly intact. MUSCULOSKELETAL: No deformities. SKIN: No lesions or rashes. LABORATORY DATA: There is no new laboratory data or imaging today. IMPRESSION: 1. Acute exacerbation of chronic obstructive pulmonary disease, acute interstitial pneumonitis. 2. Tobacco abuse. 3. History of benign lung nodule lobectomy. 4. Hypothyroidism. 5. Type 2 diabetes. 6. Morbid obesity. 7. Osteoporosis. PLAN AND MANAGEMENT: Continue steroids on current dose. Continue with antibiotics. Continue Mucinex. The patient will be assessed for home O2 today. If the patient qualifies she will need to be set up for O2 before she goes home. However, if the patient does not qualify for O2, she could be discharged on a steroid taper antibiotic of the hospitalist choice. The patient should follow up with Dr. Santos in his office in 1-2 weeks after discharge. Thank you very much for allowing us to participate in the care. [place], [place] PROGRESS NOTE NAME: GLORIA CHIN UNIT #: [id number] ROOM: 404 DOCTOR: JUAN F CROWDER DO BIRTHDATE: [birth year] Cem Crowder DO RENETTA SANTOS MD CM:AGA [phone] JUAN F CROWDER DO 11/12/18 0304 interface
--- NOTE | ~2018-11-06 | EKG ---
[place], [place] ELECTROCARDIOGRAM REPORT NAME: GLORIA CHIN UNIT #: [id number] ROOM: 404 DOCTOR: SANDRAANY DRAFT REPORT BIRTHDATE: [birth year] [facility] Test Date: 2018-11-06 Test Time: 15:36:49 Pat Name: GLORIA CHIN Department: Room: 404 Gender: F Cut Order Hand: Home Kennedy : 1955 Requested By: ZEKE REYNOSO Order Number: [id number] Reading MD: Hiren Conrad MD Measurements Intervals Rowe Rate: 87 P: 49 IA: 176 QRS: 30 QRSD: 88 T: 48 QT: 413 QTc: 497 Interpretive Statements Sinus rhythm Atrial premature complex Abnormal R-wave progression, early transition Borderline prolonged QT interval Compared to ECG 10/18/2018 14:59:09 Atrial premature complex(es) now present Electronically Signed On 11-07-2018 14:45:49 PDT by Hiren Conrad MD CM:EKGRPT:ELECTROCARDIOGRAM REPORT [id number] ZEKE REYNOSO MD EPIPHANY DRAFT REPORT ZEKE REYNOSO MD
[~2018-11-06 12:36] MED LIST changes: -ALENDRONATE SOD70 M1 PO; -AMITRIPTYLINE25 MG PO; -OXYGEN NAS
[2018-11-06 13:11] LABS: BASO # 0.1 10*3/uL (0.0-0.1); BASO % 0.9 % (0.0-1.0); EOS # 0.3 10*3/uL (0.0-0.4); EOS % 4.2 % (1.0-4.0); HEMATOCRIT 38.6 % (37.0-47.0); HEMOGLOBIN 12.6 g/dl (12.0-16.0); LYMPH # 1.9 10*3/uL (1.3-4.4); LYMPH % 27.7 % (27.0-41.0); MEAN CELL VOLUME 89.1 fl (81.0-99.0); MEAN CORPUSCULAR HGB 29.1 pg (27.0-31.0); MEAN CORPUSCULAR HGB CONC 32.6 g/dl (33.0-37.0); MEAN PLATELET VOLUME 9.2 fl (9.6-12.3); MONO # 0.6 10*3/uL (0.1-1.0); NEUT # 3.9 10*3/uL (2.3-7.9); NEUT % 57.9 % (47.0-73.0); PLATELET COUNT AUTOMATED 410 10*3/uL (130-400); RED BLOOD COUNT 4.33 10*6/uL (4.10-5.10); WHITE BLOOD COUNT 6.7 10*3/uL (4.8-10.8)
[2018-11-06 13:25] LABS: ACT PARTIAL THROMBO TIME 24.9 SECONDS (20.0-32.1); ALBUMIN 3.3 gm/dl (3.1-4.5); ALKALINE PHOSPHATASE 138 U/L (45-117); BUN 5 mg/dl (7-24); CHLORIDE 108 mmol/L (98-107); CREATININE 0.74 mg/dL (0.55-1.02); INTERNATIONAL NORM RATIO 0.9 (2.0-3.5); POTASSIUM 3.5 mmol/L (3.5-5.1); SGOT/AST 7 IU/L (3-35); SGPT/ALT 12 U/L (12-78); SODIUM 142 mmol/L (136-145); TOTAL PROTEIN 6.5 gm/dL (6.4-8.2)
[2018-11-06 13:27] LABS: TROPONIN I < 0.015 ng/ml (<0.045)
--- NOTE | 2018-11-06 14:25 | NUR ---
A 63, admitted to , under the services of Dr. ALAN TRIPLETT,CAT Mann with a diagnosis of COPD EXACERBATION. Chief complaint is SOB. Patient arrived via bed from ER. Monitor applied. Initial assessment completed. Vital signs taken and recorded. DR. ALAN TRIPLETT,CAT Mann notified of admission to the unit. Orders received. See assessment for past medical history, medications and allergies. Patient and/or family oriented to unit. [address] visitation policy reviewed. Clothing/patient valuable form completed. VACCINATIONS CURRENT [facility] MCMULLEN
[2018-11-06] MEDS ORDERED: METOPROLOL TART50 M1 PO (15:12)
[2018-11-06] MEDS ORDERED: ALENDRONATE SOD70 M1 PO (15:13)
[2018-11-06] MEDS ORDERED: AMITRIPTYLINE25 MG PO (15:14)
--- NOTE | 2018-11-06 15:30 | NUR ---
PTS HOME MEDICATIONS VERIFIED. PTS BP ELEVATED. DR PHILLIPS NOTIFIED.
--- NOTE | 2018-11-06 15:45 | NUR ---
ADMINISTERED PO ANTIHYPERTENSIVES AND ANXIETY MEDICATIONS. WILL MONITOR FOR EFFECTIVENESS
--- NOTE | 2018-11-06 18:29 | NUR ---
PTS MANUAL BP 170/108. PT ASYMPTOMATIC. DR PHILLIPS NOTIFIED. ORDER RECEIVED FOR PO CLONIDINE 0.1 MG NOW
--- NOTE | 2018-11-06 19:30 | NUR ---
BEDSIDE REPORT RECIEVED FROM DAY SHIFT RN. PT IS RESTING IN BED AT THIS TIME WITH NO COMPLAINTS OF PAIN OR DISCOMFORT. RESPIRATIONS ARE EASY AND NONLABORED. BED IS LOCKED AND IN THE LOWEST POSITION, CALL LIGHT IS WITHIN REACH. WILL CONTINUE TO MONITOR.
[2018-11-07] VITALS: BP 111/89
--- NOTE | 2018-11-07 07:53 | NUR ---
PATIENT RESTING QUIETLY IN BED. BREATHING TREATMENT IN USE. DENIES ANY SOB AT REST. LUNGS DIMINISHED WITH WHEEZES/RHONCHI. PRODUCTIVE COUGH AT TIMES PER PT. WILL CONTINUE TO MONITOR. BP 122/88. NO VOICED COMPLAINTS. VSS. CALL LIGHT WITHIN REACH.
[2018-11-07 08:00] VITALS: BP 122/88
--- NOTE | 2018-11-07 08:24 | NUR ---
GLORIA CHIN [id number] Please refer to the physician's history and physical for past medical history, comorbid conditions, and allergies. Diagnosis: COPD WITH EXACERBATION Rian Score: 20,LOW OR NO RISK WOUND DESCRIPTIONS: Wound Number 1: Patient has 3 intact scabs noted to surgical incision. No drainage noted at time of assessment. No redness noted at time of assessment. Surface the patient is resting on: Position Pro SKIN PREVENTION RECOMMENDATION: 1. Pressure redistribution support surface as appropriate 2. Elevate heels 3. Remove boots/TEDS every shift and reapply 4. Head of bed 30 degrees as tolerated 5. Assess nutrition and hydration 6. Manage moisture 7. Avoid the use of containment devices while in bed 8. Use absorptive products on surfaces limit layers of linens on bed 9. Turn and reposition every 1-2 hours in bed and every 1 hour in chair as tolerated 10. Weight shifts every 15 minutes while up in chair 11. Offloading with pillows or device to keep heels elevated off bed 12. Monitor skin at least every shift 13. Inspect under medical devices twice a day
--- NOTE | 2018-11-07 09:00 | NUR ---
Infusion Nurse in to talk to patient. Patient states lives at home with her oldest daughter, youngest son, and 18 yo twins, and her . There are 0 steps in the home. Physician: Dr. Nicol Titus Pharmacy: [facility] health services: none Patient's level of ADLs: INDEPENDENT Patient has working utilities: yes DME: [employer]bulizer Follow-up physician's appointment after d/c: she prefers to make her own follow up appt after discharge Does patient want to access PORTAL?: no Discharge plan discussed with patient. She lives at home with her family. She is independent in her ADLs and ambulation. Discussed home health care services and she denies any home needs at this time. When medically stable she will be discharged to home. JAYE COLIN
--- NOTE | 2018-11-07 12:21 | NUR ---
PATIENT RESTING. NO VOICED COMPLAINTS. WILL CONTINUE TO MONITOR.
--- NOTE | 2018-11-07 12:22 | NUR ---
Nutritional Support Services Note: Pt has a healing left knee incision. Appetite is good for meals, she is eating 100% of NCS diet. No nutrition intervention needed at this time. Will follow as needed. Lesa Hill Rdn Ld
[2018-11-07 16:00] VITALS: BP 131/84
[2018-11-07 20:00] VITALS: BP 120/80
[2018-11-07 20:53] VITALS: BP 132/88
--- NOTE | 2018-11-07 23:00 | NUR ---
ASSUMED CARE FOR THIS PT AT THIS TIME. PT AWAKE IN BED. C/O LT WRIST PAIN. WILL NOTIFY MD. CALL LIGHT IN REACH.
[2018-11-08] VITALS: BP 146/86
--- NOTE | 2018-11-08 00:11 | NUR ---
DR. LIGHT NOTIFIED OF PT'S C/O LT WRIST PAIN AND NO PRN PAIN MEDS AT THIS TIME. T.O. RCVD FOR TYLENOL 650MG PO EVERY 4 HRS PRN PAIN.
--- NOTE | 2018-11-08 00:45 | NUR ---
PT MEDICATED W/TYLENOL FOR C/O LT WRIST PAIN. PT RESTING QUIETLY IN BED. CALL LIGHT IN REACH.
--- NOTE | 2018-11-08 07:30 | NUR ---
Patient resting quietly with no c/o discomfort. Respirations easy and regular. Vital signs stable. No overt distress. DONELL BERRY
[2018-11-08 08:00] VITALS: BP 160/100
--- NOTE | 2018-11-08 08:06 | NUR ---
24 HR chart check completed.
--- NOTE | 2018-11-08 09:00 | NUR ---
Radiographer Mammographer in to see patient. No new needs or request at this time. She denies any home needs. When medically stable she will be discharged to home.
--- NOTE | 2018-11-08 09:30 | NUR ---
DR PHILLIPS IN TO SEE PT.
--- NOTE | 2018-11-08 10:00 | NUR ---
Patient resting quietly with no c/o discomfort. Respirations easy and regular. Vital signs stable. No overt distress. DONELL BERRY
--- NOTE | 2018-11-08 10:02 | NUR ---
MEDICATED WITH PO VISTARIL ORDERED PER PT REQUEST FOR C/O ANXIETY.
[2018-11-08 12:00] VITALS: BP 154/97
--- NOTE | 2018-11-08 13:39 | NUR ---
MEDICATION EFFECTIVE FOR ANXIETY.
[2018-11-08 16:00] VITALS: BP 156/89
--- NOTE | 2018-11-08 19:00 | NUR ---
PT AWAKE IN BED DURING BEDSIDE SHIFT REPORT. PT DENIES PAIN. CAST INTACT TO LEFT WRIST. CALL LIGHT IN REACH.
[2018-11-08 20:37] VITALS: BP 150/90
[2018-11-09] VITALS: BP 141/76
[2018-11-09 08:00] VITALS: BP 138/88
--- NOTE | 2018-11-09 08:00 | NUR ---
Patient resting quietly with no c/o discomfort. Respirations easy and regular. Vital signs stable. No overt distress. DONELL BERRY
--- NOTE | 2018-11-09 08:34 | NUR ---
PHYSICAL THERAPY Patient evaluated on 4, full evaluation to follow. Continue with PT as per plan of care with fall and acute debility precautions. Home, as prior. PAtient is low complexity via chart review, tests and evaluation: 13882. Thank you for this referral. Lety Guzman,PT
--- NOTE | 2018-11-09 09:00 | NUR ---
Victims Advocate Clerk/Specialist in to see patient. No new needs or request at this time. She denies any home needs. When medically stable she will be discharged to home.
[2018-11-09 12:00] VITALS: BP 157/95
--- NOTE | 2018-11-09 12:15 | NUR ---
DR SANTOS NOTIFIED OF NEW CONSULT.
[2018-11-09 16:00] VITALS: BP 125/98
--- NOTE | 2018-11-09 16:00 | NUR ---
Patient resting quietly with no c/o discomfort. Respirations easy and regular. Vital signs stable. No overt distress. DONELL BERRY
--- NOTE | 2018-11-09 19:37 | NUR ---
PT AWAKE IN BED DURING BEDSIDE SHIFT REPORT. IV ATB INFUSING INTO LAC. PT C/O MILD BURNING AND NAUSEA. DR. PHILLIPS NOTIFIED. T.O. RCVD FOR ZOFRAN 8MG IVP PRN EVERY 6 HOURS PRN N/V.
--- NOTE | 2018-11-09 19:59 | NUR ---
PT MEDICATED W/ZOFRAN AT THIS TIME FOR C/O NAUSEA. PT RESTING QUIETLY IN BED. CALL LIGHT IN REACH.
[2018-11-09 20:00] VITALS: BP 150/100
--- NOTE | 2018-11-09 22:17 | NUR ---
PT DENIES ANY FURTHER C/O NAUSEA. PRN ZOFRAN EFFECTIVE.
[2018-11-10] VITALS: BP 132/78
--- NOTE | 2018-11-10 02:00 | NUR ---
PT RESTING COMFORTABLY IN BED AT THIS TIME WITH NO SIGNS OR SYMPTOMS OF PAIN OR DISCOMFORT. RESPIRATIONS ARE EASY AND NONLABORED. BED IS LOCKED AND IN THE LOWEST POSITION, CALL LIGHT IS WITHIN REACH. WILL CONTINUE TO MONITOR PT.
[2018-11-10 08:00] VITALS: BP 140/98
--- NOTE | 2018-11-10 09:45 | NUR ---
PHYSICAL THERAPY Patient seen this am 1:1 for therapy visit and was sitting up EOB upon therapist arrival. Patient reports no c/o's of pain while transfering sit to stand SBA. Patient SpO2 prior to treatment 94%, HR 72 bpm. Patient ambulates ad sanju in hallway, 100'x 2, SBA, demonstaiting a little increased fatigue, but steady gait pattern. Patient recorded Spo2 drop to 87%, HR 88 bpm. Patient instructed on purse lip breathing technique as patient returned to EOB sit. SpO2 94%, HR 74 bpm following treatment and brief seated rest break< 30 seconds. Patient remained EOB with call light, tray table and telephone. Will continue per POC as tolerated, total treatment time 15 minutes. Christos Stiles, COACH DRIVER
[2018-11-10 12:00] VITALS: BP 143/94
--- NOTE | 2018-11-10 14:15 | NUR ---
PHYSICAL THERAPY Patient seen this pm 1:1 for therapy visit and was sitting up EOB with her present upon therapist arrival. Patient voices no new c/o's and is Independent with all transfers. Patient ambulates 50'x 1 [address] and completed several standing balance activities, including eyes open/closed without LOB, Tandem walk, Single leg stance, L side < 2 seconds and R side 3-5 seconds stand tolerance prior to LOB. Patient ambulated additional 75'x 1, Supervision, with vitals remaining WFL's throughout all treatment. Patient returned to EOB sit and remained with call light and cell phone. Will continue per POC as tolerated, total treatment time 14 minutes. Christos Stiles, WILDLIFE CONTROL OPERATOR
[2018-11-10 20:00] VITALS: BP 147/83
[2018-11-11] VITALS: BP 138/71
[2018-11-11 07:40] VITALS: BP 130/80
--- NOTE | 2018-11-11 10:43 | NUR ---
PT ASSESSED FOR HOME OXYGEN. PT QUALIFIES AT REST SPO2 93% RA, HR 90, RR 16, B/P 170/89 PT AMBULATED SPO2 86% PLACED ON 1.5LNC SPO2 96% AT REST SPO2 95% 1.5LNC, HR 95, RR 16, B/P 148/119 RN NOTIFIED, NOTIFIED
[2018-11-11 12:00] VITALS: BP 140/94
[2018-11-11] MEDS ORDERED: MEDROL DOSEPAK4 MG PO (12:47)
[2018-11-11] MEDS ORDERED: OXYGEN NAS (12:49)
--- NOTE | 2018-11-11 13:26 | NUR ---
Discharge instructions reviewed with patient/family. Patient receptive and verbalizes understanding. Follow-up care arranged. Written instructions given to patient/family. HEPLOCK DISCONTINUED. PATIENT AMBULATORY OFF FLOOR. INDUSTRIAL MAINTENANCE INSTRUCTOR D/C'ED. IVIS REED
--- NOTE | 2018-11-11 13:44 | NUR ---
PHYSICAL THERAPY Patient seen this am 1:1 for therapy visit and was sitting up on EOB upon therapist arrival. Patient had just received her breathing treatment and was willing to take a walk. Patient presented with continuos O2-1.5lL via NC and tranfers sit to stand SBA. Patient resting SpO2 95%, HR 92 bpm as patient ambulates 100'x 1, SBA, to stairwell and navigates up/down 10 steps, CGA, with use of single handrail support. Patient demonstrated alternating step pattern upon ascent and single step during descent. Patient returned to room additional 100'x 1, SBA, demonstrating slow steady simone and mild fatigue. Patient SpO2 91%, HR 118 during gait ex as patient returned to EOB sit. Vitals returned to near baseline following therapy as patient remained EOB sit with call light and cell phone. Will continue per POC as tolerated, total treatment time 17 minutes. Christos Stiles, SURVEY RESEARCH CENTER DIRECTOR
--- NOTE | 2018-11-11 15:04 | NUR ---
PHYSICAL THERAPY CO-SIGN I approve of the Phyical Therapy notes written above. MAGED CLOUD PT
== END 2018-11-11 13:26 | disposition home or self-care (01) | DRG 196 ==
LOC: ED 12:36 → 4E 13:36 → EDHOLD 13:36 → 4E 13:47
PROVIDERS: Emergency Medicine; ADMIT Internal Medicine
DX: J84.114 Acute interstitial pneumonitis (principal); J96.20 Acute and chronic respiratory failure, unspecified whether with hypoxia or hypercapnia; J44.1 Chronic obstructive pulmonary disease with (acute) exacerbation; J96.10 Chronic respiratory failure, unspecified whether with hypoxia or hypercapnia; F33.1 Major depressive disorder, recurrent, moderate; J44.0 Chronic obstructive pulmonary disease with (acute) lower respiratory infection; I10 Essential (primary) hypertension; K21.0 Gastro-esophageal reflux disease with esophagitis; I95.1 Orthostatic hypotension; G90.9 Disorder of the autonomic nervous system, unspecified; F17.200 Nicotine dependence, unspecified, uncomplicated; F41.1 Generalized anxiety disorder; F51.04 Psychophysiologic insomnia; F51.01 Primary insomnia; E66.01 Morbid (severe) obesity due to excess calories; J20.9 Acute bronchitis, unspecified; F17.210 Nicotine dependence, cigarettes, uncomplicated; M81.8 Other osteoporosis without current pathological fracture; E11.9 Type 2 diabetes mellitus without complications; Z88.1 Allergy status to other antibiotic agents; Z91.041 Radiographic dye allergy status; Z87.11 Personal history of peptic ulcer disease; Z83.6 Family history of other diseases of the respiratory system; Z87.81 Personal history of (healed) traumatic fracture; Z91.81 History of falling; Z87.01 Personal history of pneumonia (recurrent); Z90.710 Acquired absence of both cervix and uterus; Z90.49 Acquired absence of other specified parts of digestive tract; Z80.8 Family history of malignant neoplasm of other organs or systems; Z83.3 Family history of diabetes mellitus; Z82.49 Family history of ischemic heart disease and other diseases of the circulatory system; Z68.27 Body mass index [BMI] 27.0-27.9, adult; Z79.84 Long term (current) use of oral hypoglycemic drugs

== ENCOUNTER → 2018-12-14 | Outpatient (CLI) | payer OTHER ==
[~2018-12-14] MED LIST changes: +ALENDRONATE SOD70 M1 PO; +AMITRIPTYLINE25 MG PO; +OXYGEN NAS
== END | disposition home or self-care (01) ==
LOC: ORTHO 00:50
DX: S52.572D Other intraarticular fracture of lower end of left radius, subsequent encounter for closed fracture with routine healing (principal); X58.XXXD Exposure to other specified factors, subsequent encounter

== ENCOUNTER → 2019-01-25 | Outpatient (CLI) | payer OTHER | END | disposition home or self-care (01) | LOC: MAMMO 00:47 | DX: S52.572D Other intraarticular fracture of lower end of left radius, subsequent encounter for closed fracture with routine healing (principal); R92.8 Other abnormal and inconclusive findings on diagnostic imaging of breast ==

== ENCOUNTER 2019-08-14 17:50 | Emergency (ER) | payer MEDICARE ==
[~2019-08-14] VITALS: Ht 162.5 cm; Wt 83.9 kg
[2019-08-14 20:07] VITALS: BP 144/100
[2019-08-14] MEDS ORDERED: PREDNISONE20 M1 PO (20:33)
== END 2019-08-14 20:30 | disposition home or self-care (01) ==
LOC: ED 17:50
DX: S20.211A Contusion of right front wall of thorax, initial encounter (principal); J44.1 Chronic obstructive pulmonary disease with (acute) exacerbation; I10 Essential (primary) hypertension; K21.9 Gastro-esophageal reflux disease without esophagitis; F17.200 Nicotine dependence, unspecified, uncomplicated; Z91.041 Radiographic dye allergy status; Z88.8 Allergy status to other drugs, medicaments and biological substances; Z88.1 Allergy status to other antibiotic agents; Z79.899 Other long term (current) drug therapy; Z90.49 Acquired absence of other specified parts of digestive tract; Z90.710 Acquired absence of both cervix and uterus; W07.XXXA Fall from chair, initial encounter; Y93.89 Activity, other specified; Y92.000 Kitchen of unspecified non-institutional (private) residence as the place of occurrence of the external cause; Y99.8 Other external cause status

== ENCOUNTER 2019-12-18 10:05 | Emergency (ER) | payer OTHER ==
[~2019-12-18] VITALS: Ht 162.5 cm; Wt 88.5 kg
[~2019-12-18 10:05] MED LIST changes: +PREDNISONE20 M1 PO
[2019-12-18 10:11] VITALS: BP 156/110
[2019-12-18 11:10] LABS: BASO % 0.4 % (0.0-1.0); EOS # 0.2 10*3/uL (0.0-0.4); EOS % 1.6 % (1.0-4.0); HEMATOCRIT 40.6 % (37.0-47.0); LYMPH # 0.8 10*3/uL (1.3-4.4); MEAN CELL VOLUME 92.3 fl (81.0-99.0); MEAN CORPUSCULAR HGB 28.9 pg (27.0-31.0); MEAN CORPUSCULAR HGB CONC 31.3 g/dl (33.0-37.0); MEAN PLATELET VOLUME 8.6 fl (9.6-12.3); MONO # 0.1 10*3/uL (0.1-1.0); MONO % 0.8 % (3.0-9.0); NEUT # 9.9 10*3/uL (2.3-7.9); NEUT % 89.9 % (47.0-73.0); PLATELET COUNT AUTOMATED 244 10*3/uL (130-400); RED CELL DISTRI WIDTH 13.2 % (0-14.5)
[2019-12-18 11:16] LABS: ALBUMIN 3.2 gm/dl (3.1-4.5); ALKALINE PHOSPHATASE 128 U/L (45-117); BUN 17 mg/dl (7-24); CHLORIDE 109 mmol/L (98-107); CREATININE 0.77 mg/dL (0.55-1.02); POTASSIUM 4.1 mmol/L (3.5-5.1); SGOT/AST 12 IU/L (3-35); SGPT/ALT 19 U/L (12-78); SODIUM 140 mmol/L (136-145); TOTAL PROTEIN 6.6 gm/dL (6.4-8.2)
[2019-12-18 11:30] LABS: BILIRUBIN NEGATIVE (NEGATIVE); COLOR YELLOW (YELLOW); GLUCOSE NEGATIVE (NEGATIVE); KETONE NEGATIVE (NEGATIVE); SPECIFIC GRAVITY 1.025 (1.005-1.030)
[2019-12-18 11:31] LABS: BLOOD 3+ (NEGATIVE); LEUKO ESTERASE 2+ (NEGATIVE); NITRITE NEGATIVE (NEGATIVE); UROBILINOGEN 0.2 E.U./dl (0.2-1.0)
[2019-12-18 11:38] LABS: BACTERIA 3+; RBC 21-30 rbc/hpf (0-2); WBC TNTC wbc/hpf (0-5)
[2019-12-18 11:39] LABS: CLARITY CLOUDY (CLEAR)
[2019-12-18] MEDS ORDERED: SEPTDS PO (11:51)
== END 2019-12-18 12:37 | disposition home or self-care (01) ==
LOC: ED 10:05
PROVIDERS: Nurse Practitioner Family
DX: N12 Tubulo-interstitial nephritis, not specified as acute or chronic (principal); I10 Essential (primary) hypertension; J44.9 Chronic obstructive pulmonary disease, unspecified; E11.9 Type 2 diabetes mellitus without complications; K21.9 Gastro-esophageal reflux disease without esophagitis; Z91.041 Radiographic dye allergy status; Z88.1 Allergy status to other antibiotic agents; Z88.6 Allergy status to analgesic agent; Z79.899 Other long term (current) drug therapy; Z87.442 Personal history of urinary calculi

== ENCOUNTER → 2020-01-07 | Outpatient (CLI) | payer OTHER ==
[2020-01-07 12:17] LABS: BASO # 0.1 10*3/uL (0.0-0.1); EOS # 0.2 10*3/uL (0.0-0.4); EOS % 3.3 % (1.0-4.0); LYMPH # 2.7 10*3/uL (1.3-4.4); LYMPH % 40.2 % (27.0-41.0); MEAN CELL VOLUME 89.9 fl (81.0-99.0); MEAN CORPUSCULAR HGB 28.7 pg (27.0-31.0); MEAN CORPUSCULAR HGB CONC 31.9 g/dl (33.0-37.0); MEAN PLATELET VOLUME 8.7 fl (9.6-12.3); MONO # 0.8 10*3/uL (0.1-1.0); MONO % 11.8 % (3.0-9.0); NEUT # 2.9 10*3/uL (2.3-7.9); NEUT % 43.6 % (47.0-73.0); PLATELET COUNT AUTOMATED 392 10*3/uL (130-400); RED BLOOD COUNT 4.67 10*6/uL (4.10-5.10); RED CELL DISTRI WIDTH 13.2 % (0-14.5); WHITE BLOOD COUNT 6.7 10*3/uL (4.8-10.8)
[2020-01-07 12:47] LABS: ALBUMIN 3.3 gm/dl (3.1-4.5); ALKALINE PHOSPHATASE 133 U/L (45-117); BUN 9 mg/dl (7-24); CHLORIDE 107 mmol/L (98-107); CHOLESTEROL 206 mg/dL (<200); CREATININE 0.81 mg/dL (0.55-1.02); FREE T4 1.01 ng/dl (0.76-1.46); HDL CHOLESTEROL 50 mg/dl (40-60); LDL CHOLESTEROL 99 mg/dL (9-159); POTASSIUM 4.7 mmol/L (3.5-5.1); SGOT/AST 13 IU/L (3-35); SGPT/ALT 18 U/L (12-78); SODIUM 141 mmol/L (136-145); TOTAL PROTEIN 6.8 gm/dL (6.4-8.2); TRIGLYCERIDES 286 mg/dl (<150); VLDL CHOLESTEROL 57 mg/dL (6-40)
[2020-01-07 13:07] LABS: VITAMIN D, 25-HYDROXY 21.8 ng/mL (30-100)
== END | disposition home or self-care (01) ==
LOC: LAB 11:52
PROVIDERS: Internal Medicine
DX: I10 Essential (primary) hypertension (principal); E55.9 Vitamin D deficiency, unspecified; E78.2 Mixed hyperlipidemia; E03.9 Hypothyroidism, unspecified; R73.9 Hyperglycemia, unspecified

== ENCOUNTER 2020-02-09 20:07 | Emergency (ER) | payer OTHER ==
[~2020-02-09] VITALS: Wt 90.7 kg
[2020-02-09 20:16] VITALS: BP 150/110
[2020-02-09] MEDS ORDERED: IBU800 MG PO (23:23)
== END 2020-02-09 23:31 | disposition home or self-care (01) ==
LOC: ED 20:07
DX: S90.31XA Contusion of right foot, initial encounter (principal); I10 Essential (primary) hypertension; J44.9 Chronic obstructive pulmonary disease, unspecified; E11.9 Type 2 diabetes mellitus without complications; K21.9 Gastro-esophageal reflux disease without esophagitis; Z91.012 Allergy to eggs; Z91.041 Radiographic dye allergy status; Z88.6 Allergy status to analgesic agent; Z88.1 Allergy status to other antibiotic agents; Z79.899 Other long term (current) drug therapy; W20.8XXA Other cause of strike by thrown, projected or falling object, initial encounter; Y93.89 Activity, other specified; Y92.89 Other specified places as the place of occurrence of the external cause; Y99.8 Other external cause status

== ENCOUNTER → 2020-07-29 | Outpatient (CLI) | payer OTHER ==
[~2020-07-29] MED LIST changes: +IBU800 MG PO
== END | disposition home or self-care (01) ==
LOC: US 12:36
PROVIDERS: ATTEND Internal Medicine
DX: I67.89 Other cerebrovascular disease (principal); G31.9 Degenerative disease of nervous system, unspecified; R29.6 Repeated falls

== ENCOUNTER → 2020-08-18 | Outpatient (CLI) | payer OTHER ==
[2020-08-18 12:46] LABS: BASO # 0.1 10*3/uL (0.0-0.1); BASO % 0.9 % (0.0-1.0); EOS # 0.5 10*3/uL (0.0-0.4); EOS % 5.8 % (1.0-4.0); HEMATOCRIT 41.4 % (37.0-47.0); LYMPH # 2.4 10*3/uL (1.3-4.4); LYMPH % 30.3 % (27.0-41.0); MEAN CELL VOLUME 90.6 fl (81.0-99.0); MEAN CORPUSCULAR HGB 28.9 pg (27.0-31.0); MEAN CORPUSCULAR HGB CONC 31.9 g/dl (33.0-37.0); MEAN PLATELET VOLUME 8.9 fl (9.6-12.3); MONO # 0.6 10*3/uL (0.1-1.0); NEUT # 4.4 10*3/uL (2.3-7.9); NEUT % 54.6 % (47.0-73.0); PLATELET COUNT AUTOMATED 358 10*3/uL (130-400); RED BLOOD COUNT 4.57 10*6/uL (4.10-5.10)
[2020-08-18 13:05] LABS: BUN 15 mg/dl (7-24); CHLORIDE 106 mmol/L (98-107); CHOLESTEROL 154 mg/dL (<200); CREATININE 0.69 mg/dL (0.55-1.02); SGOT/AST 4 IU/L (3-35); SGPT/ALT 14 U/L (12-78); SODIUM 141 mmol/L (136-145); TRIGLYCERIDES 180 mg/dl (<150); VLDL CHOLESTEROL 36 mg/dL (6-40)
[2020-08-18 13:12] LABS: ALKALINE PHOSPHATASE 131 U/L (45-117); FREE T4 1.21 ng/dl (0.76-1.46); HDL CHOLESTEROL 58 mg/dl (40-60); LDL CHOLESTEROL 60 mg/dL (9-159); TOTAL PROTEIN 6.4 gm/dL (6.4-8.2)
[2020-08-18 13:24] LABS: VITAMIN D, 25-HYDROXY 40.4 ng/mL (30-100)
== END | disposition home or self-care (01) ==
LOC: LAB 11:26
PROVIDERS: ATTEND Internal Medicine
DX: I10 Essential (primary) hypertension (principal); E11.9 Type 2 diabetes mellitus without complications; E78.2 Mixed hyperlipidemia; D52.9 Folate deficiency anemia, unspecified; D51.9 Vitamin B12 deficiency anemia, unspecified; R53.81 Other malaise; E55.9 Vitamin D deficiency, unspecified; E78.5 Hyperlipidemia, unspecified

== ENCOUNTER → 2020-08-19 | Outpatient (CLI) | payer OTHER | END | disposition home or self-care (01) | LOC: RAD 12:03 | PROVIDERS: ATTEND Internal Medicine | DX: J43.9 Emphysema, unspecified (principal) ==

== ENCOUNTER → 2020-11-27 | Outpatient (CLI) | payer OTHER | END | disposition home or self-care (01) | LOC: RAD 08:37 → MAMMO 09:30 | PROVIDERS: ATTEND Internal Medicine | DX: Z12.31 Encounter for screening mammogram for malignant neoplasm of breast (principal); E11.9 Type 2 diabetes mellitus without complications; N64.89 Other specified disorders of breast; M85.89 Other specified disorders of bone density and structure, multiple sites; Z78.0 Asymptomatic menopausal state ==

== ENCOUNTER 2021-04-30 14:09 | Emergency (ER) | payer OTHER ==
[~2021-04-30] VITALS: Ht 160 cm; Wt 86.2 kg
[~2021-04-30 14:09] MED LIST changes: +APRESOLINE25 MG PO; +GLUCOPHAGE500 M1 PO; -LEVOTHYROXINE50 MCG PO; +LOSARTAN POTASS25 M1 PO; +LOSARTAN POTASS50 M1 PO; -METFORMIN HCL500 MG PO; +Synthroid,Levo75 MCG PO; +ZOCOR20 MG PO
[2021-04-30 14:30] VITALS: BP 111/79
== END 2021-04-30 15:58 | disposition home or self-care (01) ==
LOC: ED 14:09
DX: S60.221A Contusion of right hand, initial encounter (principal); J44.9 Chronic obstructive pulmonary disease, unspecified; F17.200 Nicotine dependence, unspecified, uncomplicated; Z91.041 Radiographic dye allergy status; Z88.1 Allergy status to other antibiotic agents; Z88.8 Allergy status to other drugs, medicaments and biological substances; Z79.899 Other long term (current) drug therapy; W06.XXXA Fall from bed, initial encounter; Y93.89 Activity, other specified; Y92.89 Other specified places as the place of occurrence of the external cause; Y99.8 Other external cause status

== ENCOUNTER → 2021-05-06 | Outpatient (CLI) | payer OTHER | END | disposition home or self-care (01) | LOC: RAD 13:04 | PROVIDERS: ATTEND Internal Medicine | DX: M18.11 Unilateral primary osteoarthritis of first carpometacarpal joint, right hand (principal); M79.641 Pain in right hand; M79.89 Other specified soft tissue disorders ==

== ENCOUNTER → 2021-09-22 | Outpatient (CLI) | payer OTHER | END | disposition home or self-care (01) | LOC: CT 10:47 | PROVIDERS: ATTEND Internal Medicine | DX: R42 Dizziness and giddiness (principal); R51.9 Headache, unspecified ==

== ENCOUNTER → 2021-09-29 | Outpatient (CLI) | payer OTHER ==
[2021-09-29 10:05] LABS: BASO # 0.1 10*3/uL (0.0-0.1); BASO % 0.9 % (0.0-1.0); EOS # 0.6 10*3/uL (0.0-0.4); EOS % 6.6 % (1.0-4.0); HEMATOCRIT 42.2 % (37.0-47.0); LYMPH # 1.9 10*3/uL (1.3-4.4); LYMPH % 19.7 % (27.0-41.0); MEAN CELL VOLUME 91.3 fl (81.0-99.0); MEAN CORPUSCULAR HGB 29.7 pg (27.0-31.0); MEAN CORPUSCULAR HGB CONC 32.5 g/dl (33.0-37.0); MEAN PLATELET VOLUME 8.9 fl (9.6-12.3); MONO # 0.7 10*3/uL (0.1-1.0); MONO % 7.7 % (3.0-9.0); NEUT # 6.1 10*3/uL (2.3-7.9); NEUT % 64.7 % (47.0-73.0); PLATELET COUNT AUTOMATED 353 10*3/uL (130-400); RED BLOOD COUNT 4.62 10*6/uL (4.10-5.10); RED CELL DISTRI WIDTH 12.7 % (0-14.5); WHITE BLOOD COUNT 9.4 10*3/uL (4.8-10.8)
[2021-09-29 11:34] LABS: VITAMIN D, 25-HYDROXY 28.5 ng/mL (30-100)
[2021-09-29 12:53] LABS: BUN 13 mg/dl (7-24); CHLORIDE 106 mmol/L (98-107); POTASSIUM 3.8 mmol/L (3.5-5.1); SODIUM 139 mmol/L (136-145)
[2021-09-29 12:57] LABS: ALKALINE PHOSPHATASE 148 U/L (45-117); CHOLESTEROL 141 mg/dL (<200); CREATININE 0.64 mg/dL (0.55-1.02); LDL CHOLESTEROL 38 mg/dL (9-159); SGOT/AST 13 IU/L (3-35); SGPT/ALT 16 U/L (12-78); T3 UPTAKE 36 % (31-39); THYROXINE (T4) TOTAL 12.9 ug/dl (4.8-13.9); TOTAL PROTEIN 6.7 gm/dL (6.4-8.2); TRIGLYCERIDES 284 mg/dl (<150)
== END | disposition home or self-care (01) ==
LOC: LAB 09:27 → RAD 09:30 → MAMMO 10:00
PROVIDERS: ATTEND Internal Medicine
DX: Z13.89 Encounter for screening for other disorder (principal); E55.9 Vitamin D deficiency, unspecified; I10 Essential (primary) hypertension; E11.9 Type 2 diabetes mellitus without complications; E78.2 Mixed hyperlipidemia; E03.9 Hypothyroidism, unspecified

== ENCOUNTER → 2022-03-04 | Outpatient (CLI) | payer OTHER | END | disposition home or self-care (01) | LOC: MAMMO 07:50 | PROVIDERS: ATTEND Internal Medicine | DX: Z12.31 Encounter for screening mammogram for malignant neoplasm of breast (principal); N64.9 Disorder of breast, unspecified ==

== ENCOUNTER → 2022-03-25 | Outpatient (CLI) | payer OTHER | END | disposition home or self-care (01) | LOC: MRI 09:36 | PROVIDERS: ATTEND Internal Medicine | DX: M51.27 Other intervertebral disc displacement, lumbosacral region (principal); M51.17 Intervertebral disc disorders with radiculopathy, lumbosacral region ==

== ENCOUNTER → 2022-04-09 | Outpatient (CLI) | payer OTHER | END | disposition home or self-care (01) | LOC: US 07:55 | PROVIDERS: ATTEND Internal Medicine | DX: I73.9 Peripheral vascular disease, unspecified (principal); R60.0 Localized edema; F17.210 Nicotine dependence, cigarettes, uncomplicated ==

== ENCOUNTER → 2022-11-17 | Outpatient (CLI) | payer OTHER | END | disposition home or self-care (01) | LOC: US 07:30 | PROVIDERS: ATTEND Internal Medicine | DX: G64 Other disorders of peripheral nervous system (principal); I10 Essential (primary) hypertension; J44.9 Chronic obstructive pulmonary disease, unspecified; M71.21 Synovial cyst of popliteal space [Baker], right knee; M79.605 Pain in left leg; M79.604 Pain in right leg; I73.9 Peripheral vascular disease, unspecified ==

== ENCOUNTER → 2023-04-09 | Outpatient (CLI) | payer OTHER | END | disposition home or self-care (01) | LOC: RAD 10:49 | PROVIDERS: ATTEND Internal Medicine | DX: M17.12 Unilateral primary osteoarthritis, left knee (principal); M47.812 Spondylosis without myelopathy or radiculopathy, cervical region; M48.02 Spinal stenosis, cervical region; M47.817 Spondylosis without myelopathy or radiculopathy, lumbosacral region ==

== ENCOUNTER 2023-12-26 16:48 | Emergency (ER) | payer OTHER ==
[~2023-12-26] VITALS: Ht 162.5 cm; Wt 82.6 kg
[~2023-12-26 16:48] MED LIST changes: +AMITRIPTYLINE100 M1 PO; +ASPIRIN ADULT L81 M1 PO
[2023-12-26 16:54] VITALS: BP 111/85
[2023-12-26] MEDS ORDERED: Acetaminophen/Oxycodone 5 MG/325 MG TABLET PO ONE (17:00)
[2023-12-26] MEDS ORDERED: TRAMADOL HCL50 MG PO (17:29)
== END 2023-12-26 17:39 | disposition home or self-care (01) ==
LOC: ED 16:48
DX: S70.02XA Contusion of left hip, initial encounter (principal); J44.9 Chronic obstructive pulmonary disease, unspecified; I10 Essential (primary) hypertension; Z91.041 Radiographic dye allergy status; Z88.8 Allergy status to other drugs, medicaments and biological substances; Z88.1 Allergy status to other antibiotic agents; Z79.899 Other long term (current) drug therapy; Z79.2 Long term (current) use of antibiotics; Z79.82 Long term (current) use of aspirin; Z98.890 Other specified postprocedural states; Z90.49 Acquired absence of other specified parts of digestive tract; Z90.710 Acquired absence of both cervix and uterus; W18.39XA Other fall on same level, initial encounter; Y93.89 Activity, other specified; Y92.89 Other specified places as the place of occurrence of the external cause; Y99.8 Other external cause status

== ENCOUNTER 2024-01-03 21:45 | Emergency (ER) | payer OTHER ==
[~2024-01-03] VITALS: Ht 160 cm; Wt 81.6 kg
[~2024-01-03 21:45] MED LIST changes: +TRAMADOL HCL50 MG PO
[2024-01-03 22:05] VITALS: BP 108/74
[2024-01-04] MEDS ORDERED: Ketorolac Tromethamine 30 MG/ML VIAL IM ONE (00:30)
[2024-01-04] MEDS ORDERED: METHOCARBAMOL 500 MG TAB PO ONE (00:30)
[2024-01-04] MEDS ORDERED: METHOCARBAMOL500 M1 PO (00:51)
[2024-01-04] MEDS ORDERED: NAPROXEN250 MG PO (00:51)
== END 2024-01-04 00:54 | disposition home or self-care (01) ==
LOC: ED 21:45
DX: S16.1XXA Strain of muscle, fascia and tendon at neck level, initial encounter (principal); S00.93XA Contusion of unspecified part of head, initial encounter; Z91.041 Radiographic dye allergy status; Z88.1 Allergy status to other antibiotic agents; Z88.8 Allergy status to other drugs, medicaments and biological substances; Z98.890 Other specified postprocedural states; Z90.710 Acquired absence of both cervix and uterus; Z90.49 Acquired absence of other specified parts of digestive tract; W01.198A Fall on same level from slipping, tripping and stumbling with subsequent striking against other object, initial encounter; Y93.89 Activity, other specified; Y92.009 Unspecified place in unspecified non-institutional (private) residence as the place of occurrence of the external cause; Y99.8 Other external cause status

== ENCOUNTER 2024-01-15 18:27 | Emergency (ER) | payer OTHER ==
[~2024-01-15] VITALS: Ht 160 cm; Wt 81.6 kg
[~2024-01-15 18:27] MED LIST changes: +METHOCARBAMOL500 M1 PO; +NAPROXEN250 MG PO
[2024-01-15 18:36] VITALS: BP 106/76
[2024-01-15] MEDS ORDERED: Acetaminophen/Oxycodone 5 MG/325 MG TABLET PO ONE (18:40)
== END 2024-01-15 19:10 | disposition home or self-care (01) ==
LOC: ED 18:27
DX: S93.401A Sprain of unspecified ligament of right ankle, initial encounter (principal); J44.9 Chronic obstructive pulmonary disease, unspecified; I10 Essential (primary) hypertension; E78.5 Hyperlipidemia, unspecified; F32.A Depression, unspecified; F41.9 Anxiety disorder, unspecified; E11.9 Type 2 diabetes mellitus without complications; K21.9 Gastro-esophageal reflux disease without esophagitis; X50.1XXA Overexertion from prolonged static or awkward postures, initial encounter; Y93.89 Activity, other specified; Y92.009 Unspecified place in unspecified non-institutional (private) residence as the place of occurrence of the external cause; Y99.8 Other external cause status

== ENCOUNTER 2024-01-29 13:43 | Inpatient (IN) | payer OTHER ==
[~2024-01-29] VITALS: Ht 157.5 cm; Wt 77.1 kg
[2024-01-29 13:58] VITALS: BP 146/99
[2024-01-29] MEDS ORDERED: Acetaminophen/Hydrocodone 5 MG/325 MG TABLET PO ONE (14:05)
[2024-01-29 14:20] LABS: BASO # 0.1 10*3/uL (0.0-0.1); BASO % 0.6 % (0.0-1.0); EOS # 0.2 10*3/uL (0.0-0.4); EOS % 2.2 % (1.0-4.0); HEMATOCRIT 39.6 % (37.0-47.0); LYMPH # 2.1 10*3/uL (1.3-4.4); LYMPH % 20.2 % (27.0-41.0); MEAN CELL VOLUME 94.1 fl (81.0-99.0); MEAN CORPUSCULAR HGB 30.2 pg (27.0-31.0); MEAN CORPUSCULAR HGB CONC 32.1 g/dl (33.0-37.0); MEAN PLATELET VOLUME 8.5 fl (9.6-12.3); MONO # 0.8 10*3/uL (0.1-1.0); MONO % 7.8 % (3.0-9.0); NEUT # 7.2 10*3/uL (2.3-7.9); NEUT % 68.9 % (47.0-73.0); PLATELET COUNT AUTOMATED 358 10*3/uL (130-400); RED BLOOD COUNT 4.21 10*6/uL (4.10-5.10); RED CELL DISTRI WIDTH 13.6 % (0-14.5); WHITE BLOOD COUNT 10.4 10*3/uL (4.8-10.8)
[2024-01-29 14:39] LABS: BUN 9 mg/dl (9-23); CHLORIDE 108 mmol/L (98-107); POTASSIUM 3.5 mmol/L (3.4-5.1)
[2024-01-29] MEDS ORDERED: Piperacillin Sodium/Tazobact 50 ML IV ONE (15:05)
[2024-01-29] MEDS ORDERED: Vancomycin Hydrochloride 250 ML IV ONE (15:05)
[2024-01-29] MEDS ORDERED: IOHEXOL 300 MG/ML 100 ML VIAL IV ONE (15:30)
[2024-01-29 17:30] VITALS: BP 112/65
[2024-01-29 18:00] VITALS: BP 130/92
[2024-01-29 20:00] VITALS: BP 127/82
[2024-01-29] MEDS ORDERED: SODIUM CHLORIDE 0.9% 10 ML VIAL IV SCH (21:55)
[2024-01-29] MEDS ORDERED: Albuterol Sulf/Ipratropium 3 ML VIAL NEB SCH (21:55)
[2024-01-29] MEDS ORDERED: HYDROmorphONE Hydrochloride 0.5 MG/0.5 ML SYRINGE IV PRN (21:55)
[2024-01-29] MEDS ORDERED: NYSTATIN CREAM 15 GM TUBE T SCH (22:03)
[2024-01-29] MEDS ORDERED: SODIUM CHLORIDE 0.9% 1,000 ML IV SCH (22:10)
[2024-01-30] VITALS: BP 148/93
[2024-01-30 06:32] LABS: BASO % 0.5 % (0.0-1.0); EOS # 0.2 10*3/uL (0.0-0.4); EOS % 2.7 % (1.0-4.0); HEMATOCRIT 34.1 % (37.0-47.0); LYMPH # 2.1 10*3/uL (1.3-4.4); LYMPH % 24.7 % (27.0-41.0); MEAN CELL VOLUME 92.4 fl (81.0-99.0); MEAN CORPUSCULAR HGB 30.4 pg (27.0-31.0); MEAN CORPUSCULAR HGB CONC 32.8 g/dl (33.0-37.0); MEAN PLATELET VOLUME 8.8 fl (9.6-12.3); MONO # 0.8 10*3/uL (0.1-1.0); NEUT # 5.3 10*3/uL (2.3-7.9); NEUT % 62.7 % (47.0-73.0); PLATELET COUNT AUTOMATED 301 10*3/uL (130-400); RED BLOOD COUNT 3.69 10*6/uL (4.10-5.10); RED CELL DISTRI WIDTH 13.6 % (0-14.5); WHITE BLOOD COUNT 8.5 10*3/uL (4.8-10.8)
[2024-01-30 06:53] LABS: BUN 9 mg/dl (9-23); CHLORIDE 108 mmol/L (98-107); POTASSIUM 3.7 mmol/L (3.4-5.1)
[2024-01-30 08:00] VITALS: BP 137/99
[2024-01-30] MEDS ORDERED: hydrOXYzine 50 MG CAP PO PRN (08:35)
[2024-01-30] MEDS ORDERED: DEXTROSE 10 % IN WATER 250 ML IV PRN (08:45)
[2024-01-30] MEDS ORDERED: VANCOMYCIN/WATER FOR INJ (PEG) 250 ML IV SCH (10:00)
[2024-01-30] MEDS ORDERED: hydrALAZINE hydrochloride 25 MG TAB PO SCH (10:00)
[2024-01-30] MEDS ORDERED: Losartan Potassium 50 MG TAB PO SCH (10:00)
[2024-01-30] MEDS ORDERED: Metoprolol Tartrate 50 MG TAB PO SCH (10:00)
[2024-01-30] MEDS ORDERED: Levothyroxine Sodium 75 MCG TAB PO SCH (10:00)
[2024-01-30] MEDS ORDERED: Pantoprazole Sodium 40 MG TAB PO SCH (10:00)
[2024-01-30] MEDS ORDERED: INSULIN REGULAR, HUMAN 1 UNIT/0.01 ML SC SCH (11:30)
[2024-01-30 12:00] VITALS: BP 98/84
[2024-01-30] MEDS ORDERED: busPIRone Hydrochloride 15 MG TAB PO SCH (14:00)
[2024-01-30 16:00] VITALS: BP 127/111
[2024-01-30 20:00] VITALS: BP 139/92; BP 148/82
[2024-01-30] MEDS ORDERED: Amitriptyline Hydrochloride 50 MG TAB PO SCH (22:00)
[2024-01-30] MEDS ORDERED: SIMVASTATIN 20 MG TAB PO SCH (22:00)
[2024-01-31] VITALS: BP 120/66
[2024-01-31] MEDS ORDERED: INSULIN REGULAR, HUMAN 1 UNIT/0.01 ML SC SCH (07:30)
[2024-01-31 08:00] VITALS: BP 139/96
[2024-01-31] MEDS ORDERED: CLEOCIN HCL300 MG PO (08:18)
== END 2024-01-31 10:44 | disposition home or self-care (01) | DRG 394 ==
LOC: ED 13:43 → EDHOLD 15:12 → 4E 15:12
PROVIDERS: Nurse Practitioner Family; ADMIT Internal Medicine; ATTEND Internal Medicine
DX: K61.1 Rectal abscess (principal); F32.1 Major depressive disorder, single episode, moderate; I10 Essential (primary) hypertension; F41.1 Generalized anxiety disorder; F32.A Depression, unspecified; E11.9 Type 2 diabetes mellitus without complications; J44.9 Chronic obstructive pulmonary disease, unspecified; E03.9 Hypothyroidism, unspecified; Z88.8 Allergy status to other drugs, medicaments and biological substances; Z88.1 Allergy status to other antibiotic agents; Z91.041 Radiographic dye allergy status; Z82.49 Family history of ischemic heart disease and other diseases of the circulatory system; Z83.3 Family history of diabetes mellitus

== ENCOUNTER 2024-08-23 19:05 | Emergency (ER) | payer OTHER ==
[~2024-08-23] VITALS: Ht 162.5 cm; Wt 68.0 kg
[~2024-08-23 19:05] MED LIST changes: +CLEOCIN HCL300 MG PO
[2024-08-23 19:16] VITALS: BP 172/111
== END 2024-08-23 22:20 | disposition home or self-care (01) ==
LOC: ED 19:05
DX: S63.501A Unspecified sprain of right wrist, initial encounter (principal); I10 Essential (primary) hypertension; J44.9 Chronic obstructive pulmonary disease, unspecified; F32.A Depression, unspecified; F41.9 Anxiety disorder, unspecified; E11.9 Type 2 diabetes mellitus without complications; K21.9 Gastro-esophageal reflux disease without esophagitis; F17.200 Nicotine dependence, unspecified, uncomplicated; Z91.041 Radiographic dye allergy status; Z88.1 Allergy status to other antibiotic agents; Z88.8 Allergy status to other drugs, medicaments and biological substances; Z90.49 Acquired absence of other specified parts of digestive tract; Z90.710 Acquired absence of both cervix and uterus; Z98.890 Other specified postprocedural states; W10.8XXA Fall (on) (from) other stairs and steps, initial encounter; Y93.89 Activity, other specified; Y92.009 Unspecified place in unspecified non-institutional (private) residence as the place of occurrence of the external cause; Y99.8 Other external cause status

== ENCOUNTER → 2024-08-29 | Outpatient (CLI) | payer OTHER ==
[2024-08-29 13:43] LABS: BASO # 0.1 10*3/uL (0.0-0.1); BASO % 0.6 % (0.0-1.0); EOS # 0.4 10*3/uL (0.0-0.4); EOS % 5.5 % (1.0-4.0); HEMATOCRIT 38.8 % (37.0-47.0); MEAN CELL VOLUME 97.5 fl (81.0-99.0); MEAN CORPUSCULAR HGB 30.9 pg (27.0-31.0); MEAN CORPUSCULAR HGB CONC 31.7 g/dl (33.0-37.0); MEAN PLATELET VOLUME 8.5 fl (9.6-12.3); MONO # 0.6 10*3/uL (0.1-1.0); MONO % 7.6 % (3.0-9.0); NEUT # 4.5 10*3/uL (2.3-7.9); PLATELET COUNT AUTOMATED 366 10*3/uL (130-400); RED BLOOD COUNT 3.98 10*6/uL (4.10-5.10); RED CELL DISTRI WIDTH 13.6 % (0-14.5)
[2024-08-29 14:07] LABS: ALKALINE PHOSPHATASE 110 U/L (46-116); BUN 11 mg/dl (9-23); CHLORIDE 106 mmol/L (98-107); CHOLESTEROL 176 mg/dL (<200); FREE T4 1.33 ng/dl (0.89-1.76); LDL CHOLESTEROL 89 mg/dL (9-159); POTASSIUM 4.5 mmol/L (3.4-5.1); SGPT/ALT 9 U/L (5-49); TOTAL PROTEIN 6.7 gm/dL (6.0-8.0); TRIGLYCERIDES 141 mg/dl (<150)
== END | disposition home or self-care (01) ==
LOC: LAB 13:20
PROVIDERS: ATTEND Internal Medicine
DX: Z13.0 Encounter for screening for diseases of the blood and blood-forming organs and certain disorders involving the immune mechanism (principal); Z13.1 Encounter for screening for diabetes mellitus; Z13.21 Encounter for screening for nutritional disorder; Z13.220 Encounter for screening for lipoid disorders; Z13.228 Encounter for screening for other metabolic disorders; Z13.29 Encounter for screening for other suspected endocrine disorder; Z13.6 Encounter for screening for cardiovascular disorders; Z13.89 Encounter for screening for other disorder; E55.9 Vitamin D deficiency, unspecified; R53.83 Other fatigue; I10 Essential (primary) hypertension; R53.1 Weakness; E11.9 Type 2 diabetes mellitus without complications; Z79.899 Other long term (current) drug therapy

== ENCOUNTER → 2025-01-01 | Outpatient (CLI) | payer MEDICARE | END | disposition home or self-care (01) | LOC: MAMMO 07:30 | PROVIDERS: ATTEND Internal Medicine | DX: Z12.31 Encounter for screening mammogram for malignant neoplasm of breast (principal); R92.313 Mammographic fatty tissue density, bilateral breasts ==

== ENCOUNTER → 2025-03-07 | Outpatient (CLI) | payer MEDICARE | LOC: RAD 10:01 | PROVIDERS: ATTEND Internal Medicine | DX: J84.10 Pulmonary fibrosis, unspecified (principal); R06.02 Shortness of breath ==

== ENCOUNTER → 2025-04-09 | Outpatient (CLI) | payer MEDICARE | END | disposition home or self-care (01) | LOC: CARD 01:24 → CT 11:00 | PROVIDERS: ATTEND Internal Medicine | DX: I08.3 Combined rheumatic disorders of mitral, aortic and tricuspid valves (principal); M47.814 Spondylosis without myelopathy or radiculopathy, thoracic region; R06.02 Shortness of breath; F17.210 Nicotine dependence, cigarettes, uncomplicated; I10 Essential (primary) hypertension; J98.4 Other disorders of lung ==